=== PATIENT | female | born 1960 | race Asian ===

== ENCOUNTER 2020-02-24 08:45 | Outpatient (REF) | payer OTHER, SELFPAY ==
[2020-02-24 11:11] LABS: MANUAL DIFF FLAG NO
[2020-02-24 11:15] LABS: Basophils Percent Auto 0.3 % (0-2); Eosinophils Absolute Auto 0.3 X10*3/uL (0.0-0.4); Hematocrit 40.9 % (37-47); Hemoglobin 13.3 g/dl (12.0-16.0); Imm Gran Abs Auto 0.05 X10*3/uL (0.00-0.03); Imm Gran Pct Auto 0.5 % (0.0-0.4); Lymphocytes Absolute Auto 2.8 X10*3/uL (1.2-4.9); Lymphocytes Percent Auto 29.1 % (20-40); Mean Corpuscular HGB Conc 32.5 g/dl (31.0-35.0); Mean Corpuscular Hemoglobin 30.6 pg (27.0-33.0); Mean Corpuscular Volume 94.2 fL (80-98); Mean Platelet Volume 10.6 fL (9.4-12.3); Monocytes Absolute Auto 0.6 X10*3/uL (0.1-1.2); Monocytes Percent Auto 6.1 % (2-11); Neutrophils Absolute Auto 5.9 X10*3/uL (2.0-8.3); Platelet Count 305 X10*3/uL (160-400); Red Blood Count 4.34 X10*6/uL (4.20-5.50); Red Cell Distribution Width 12.8 % (11.0-16.0); White Blood Count 9.7 X10*3/uL (4.8-10.8)
[2020-02-24 11:44] LABS: Anion Gap 12 (12-20); Blood Urea Nitrogen 13 mg/dL (9-16); Calcium 9.8 mg/dL (8.4-10.2); Carbon Dioxide 28 mmol/L (22-29); Chloride 104 mmol/L (96-108); Estimated Glomerular Filt Rate > 60; Glucose Random 139 mg/dL (60-115); Potassium 4.4 mmol/l (3.3-5.1); Sodium 140 mmol/L (135-145)
== END 2020-02-24 08:46 | disposition home or self-care (01) ==
LOC: HO.HMGCLDS 08:45
PROVIDERS: PCP Internal Medicine; Visit Provider Internal Medicine
DX: F41.1 Generalized anxiety disorder (principal); G47.61 Periodic limb movement disorder; M17.10 Unilateral primary osteoarthritis, unspecified knee; I10 Essential (primary) hypertension
CPT/HCPCS: 36415; 80048; 85025

== ENCOUNTER → 2020-08-04 11:04 | Outpatient (BNVA) | payer OTHER, SELFPAY | PROVIDERS: PCP Internal Medicine; Visit Provider Internal Medicine | DX: E66.9 Obesity, unspecified (principal); T88.8XXA Other specified complications of surgical and medical care, not elsewhere classified, initial encounter; G47.33 Obstructive sleep apnea (adult) (pediatric); Z99.89 Dependence on other enabling machines and devices | CPT/HCPCS: 99212 ==

== ENCOUNTER 2020-09-02 09:08 | Outpatient (REF) | payer OTHER, SELFPAY ==
[2020-09-02 12:22] LABS: Alanine Aminotransferase 18 U/L (0-31); Albumin Level 4.1 g/dL (3.5-5.0); Alkaline Phosphatase 85 U/L (39-117); Anion Gap 13 (12-20); Aspartate Amino Transferase 14 U/L (5-31); Bilirubin Total 0.3 mg/dL (0.0-1.0); Blood Urea Nitrogen 14 mg/dL (9-16); Calcium 9.7 mg/dL (8.4-10.2); Carbon Dioxide 25 mmol/L (22-29); Chloride 107 mmol/L (96-108); Cholesterol 187 mg/dL; Estimated Glomerular Filt Rate > 60; Glucose Fasting 91 mg/dL (60-99); HDL Cholesterol 42 mg/dL; LDL Cholesterol Calculated 122 mg/dl; Potassium 4.5 mmol/L (3.3-5.1); Sodium 140 mmol/L (135-145); TSH reflex Free T4 1.14 uIU/mL (0.32-4.0); Triglycerides 119 mg/dL
== END 2020-09-02 09:09 | disposition home or self-care (01) ==
LOC: HO.HMGCLDS 09:08
PROVIDERS: PCP Internal Medicine; Visit Provider Internal Medicine
DX: Z00.01 Encounter for general adult medical examination with abnormal findings (principal); F41.1 Generalized anxiety disorder; I10 Essential (primary) hypertension; G47.61 Periodic limb movement disorder; E66.09 Other obesity due to excess calories; Z72.0 Tobacco use
CPT/HCPCS: 36415; 80053; 80061; 84443

== ENCOUNTER → 2020-09-22 10:50 | Outpatient (BNVA) | payer OTHER, SELFPAY | PROVIDERS: PCP Internal Medicine; Visit Provider Internal Medicine | DX: G47.33 Obstructive sleep apnea (adult) (pediatric) (principal); E66.9 Obesity, unspecified; Z99.89 Dependence on other enabling machines and devices | CPT/HCPCS: 99212 ==

== ENCOUNTER 2021-02-15 09:55 | Outpatient (REF) | payer OTHER, SELFPAY ==
[2021-02-15 12:17] LABS: Alanine Aminotransferase 17 U/L (0-31); Albumin Level 3.9 g/dL (3.5-5.0); Alkaline Phosphatase 84 U/L (39-117); Anion Gap 11 (12-20); Aspartate Amino Transferase 15 U/L (5-31); Bilirubin Total 0.2 mg/dL (0.0-1.0); Blood Urea Nitrogen 17 mg/dL (9-16); Calcium 9.5 mg/dL (8.4-10.2); Carbon Dioxide 27 mmol/L (22-29); Chloride 109 mmol/L (96-108); Estimated Glomerular Filt Rate > 60; Glucose Random 117 mg/dL (60-115); Potassium 3.8 mmol/L (3.3-5.1); Sodium 143 mmol/L (135-145); Total Protein 6.7 g/dL (6.5-8.0)
== END 2021-02-15 09:56 | disposition home or self-care (01) ==
LOC: HO.HMGCLDS 09:55
PROVIDERS: PCP Internal Medicine; Visit Provider Internal Medicine
DX: E66.09 Other obesity due to excess calories (principal); F41.1 Generalized anxiety disorder; G47.61 Periodic limb movement disorder; I10 Essential (primary) hypertension
CPT/HCPCS: 36415; 80053

== ENCOUNTER 2021-05-02 12:53 | Outpatient (REF) | payer OTHER, SELFPAY ==
[2021-05-02 14:02] LABS: MANUAL DIFF FLAG NO
[2021-05-02 14:10] LABS: Basophils Percent Auto 0.4 % (0-2); Eosinophils Absolute Auto 0.3 X10*3/uL (0.0-0.4); Eosinophils Percent Auto 2.8 % (0-4); Hematocrit 42.1 % (37.0-47.0); Hemoglobin 13.2 g/dl (12.0-16.0); Imm Gran Abs Auto 0.04 X10*3/uL (0.00-0.03); Imm Gran Pct Auto 0.4 % (0.0-0.4); Lymphocytes Absolute Auto 2.9 X10*3/uL (1.2-4.9); Lymphocytes Percent Auto 29.4 % (20-40); Mean Corpuscular HGB Conc 31.4 g/dl (31.0-35.0); Mean Corpuscular Volume 92.5 fL (80.0-98.0); Mean Platelet Volume 10.8 fL (9.4-12.3); Monocytes Absolute Auto 0.7 X10*3/uL (0.1-1.2); Monocytes Percent Auto 7.5 % (2-11); Neutrophils Absolute Auto 5.8 x10*3/uL (2.0-8.3); Neutrophils Percent Auto 59.5 % (45-73); Platelet Count 289 X10*3/uL (160-400); Red Blood Count 4.55 X10*6/uL (4.20-5.50); Red Cell Distribution Width 13.2 % (11.0-16.0); White Blood Count 9.7 X10*3/uL (4.8-10.8)
[2021-05-02 14:22] LABS: Alanine Aminotransferase 16 U/L (0-31); Albumin Level 4.1 g/dL (3.5-5.0); Alkaline Phosphatase 101 U/L (39-117); Anion Gap 10 (12-20); Aspartate Amino Transferase 16 U/L (5-31); Bilirubin Total 0.3 mg/dL (0.0-1.0); Blood Urea Nitrogen 15 mg/dL (9-16); Calcium 9.8 mg/dL (8.4-10.2); Carbon Dioxide 28 mmol/L (22-29); Chloride 106 mmol/L (96-108); Estimated Glomerular Filt Rate > 60; Glucose Random 108 mg/dL (60-115); Potassium 4.1 mmol/L (3.3-5.1); Sodium 140 mmol/L (135-145)
[2021-05-02 14:46] LABS: TSH reflex Free T4 1.23 uIU/mL (0.32-4.0)
[2021-05-03 05:31] LABS: LDL Cholesterol Direct 136 mg/dL (<100)
== END 2021-05-02 12:54 | disposition home or self-care (01) ==
LOC: HO.HMGCLDS 12:53
PROVIDERS: PCP Internal Medicine; Visit Provider Internal Medicine
DX: F41.1 Generalized anxiety disorder (principal); E66.01 Morbid (severe) obesity due to excess calories; Z68.37 Body mass index [BMI] 37.0-37.9, adult
CPT/HCPCS: 36415; 80053; 83721; 84443; 85025

== ENCOUNTER 2021-06-07 15:42 | Emergency (ER) | payer OTHER, SELFPAY ==
--- NOTE | ~2021-06-07 | XR_ITS ---
EXAMINATION: XR CHEST CLINICAL INFORMATION: Hypertension. COMPARISON: 06/28/2013 chest radiographs. TECHNIQUE: Frontal view of the chest was obtained. FINDINGS: Minimal linear atelectasis versus scarring is seen in the left midlung without significant change. The lungs otherwise clear. The heart is mildly enlarged. The mediastinal structures are unremarkable. XR/XR chest 1V IMPRESSION: No acute cardiopulmonary process.
[2021-06-07 16:00] VITALS: BP 221/88; PULSE 57; RESP 18; TEMP 37; O2SAT 97; BMI 32.9
--- NOTE | 2021-06-07 16:05 | ECG_ITS ---
Test Reason : HYPERTENSION Blood Pressure : / mmHG Vent. Rate : 056 BPM Atrial Rate : 056 BPM P-R Int : 150 ms QRS Dur : 084 ms QT Int : 458 ms P-R-T Axes : 032 -08 055 degrees QTc Int : 441 ms Sinus bradycardia Otherwise normal ECG When compared with ECG of 28-JUN-2013 19:33, Vent. rate has decreased BY 34 BPM Referred By: Generic ED Physician Electronically Signed By:GLO UNDERWOOD MD
[2021-06-07 16:20] LABS: MANUAL DIFF FLAG NO
[2021-06-07 16:22] LABS: Basophils Percent Auto 0.4 % (0-2); Eosinophils Absolute Auto 0.3 X10*3/uL (0.0-0.4); Eosinophils Percent Auto 2.5 % (0-4); Hematocrit 41.9 % (37.0-47.0); Hemoglobin 13.2 g/dl (12.0-16.0); Imm Gran Abs Auto 0.03 X10*3/uL (0.00-0.03); Imm Gran Pct Auto 0.3 % (0.0-0.4); Lymphocytes Absolute Auto 3.2 X10*3/uL (1.2-4.9); Lymphocytes Percent Auto 31.6 % (20-40); Mean Corpuscular HGB Conc 31.5 g/dl (31.0-35.0); Mean Corpuscular Hemoglobin 28.6 pg (27.0-33.0); Mean Corpuscular Volume 90.9 fL (80.0-98.0); Mean Platelet Volume 10.5 fL (9.4-12.3); Monocytes Absolute Auto 0.9 X10*3/uL (0.1-1.2); Monocytes Percent Auto 8.6 % (2-11); Neutrophils Absolute Auto 5.7 x10*3/uL (2.0-8.3); Neutrophils Percent Auto 56.6 % (45-73); Platelet Count 246 X10*3/uL (160-400); Red Blood Count 4.61 X10*6/uL (4.20-5.50); Red Cell Distribution Width 13.4 % (11.0-16.0); White Blood Count 10.1 X10*3/uL (4.8-10.8)
[2021-06-07 16:36] LABS: Anion Gap 12 (12-20); Blood Urea Nitrogen 15 mg/dL (9-16); Calcium 9.7 mg/dL (8.4-10.2); Carbon Dioxide 26 mmol/L (22-29); Chloride 106 mmol/L (96-108); Creatinine Clr Calc Pharmacy 83.2; Estimated Glomerular Filt Rate > 60; Glucose Random 103 mg/dL (60-115); Potassium 4.2 mmol/L (3.3-5.1); Sodium 140 mmol/L (135-145)
[2021-06-07 16:42] LABS: Troponin-I High Sensitivity < 3.5 ng/L (<3.5-17.0)
[2021-06-07 19:48] VITALS: BP 193/93; PULSE 54; O2SAT 94
--- NOTE | 2021-06-07 19:58 | ED.GENADULT ---
HPI - General Adult General Chief complaint: Headache Stated complaint: high BP/hypertension Time Seen by Provider: 06/07/21 19:57 Source: patient Mode of arrival: ambulatory Limitations: no limitations History of Present Illness HPI narrative: Patient with history of hypertension for long time on valsartan and atenolol recently for last 1 month blood pressure has been very high PCP increased the dose of valsartan to 320 mg for 160 mg last week blood pressure is still 195/86 on arrival at home it was 221/88 patient complaining of mild headache and heaviness does have a stress at home but feel relaxed now no chest pain or shortness of breath no urinary complaints Related Data Home Medications Medication Instructions Recorded Confirmed clonazepam 0.5 mg tablet 0.5 mg PO BEDTIME 06/07/21 06/07/21 Previous Rx's Medication Instructions Recorded sertraline 100 mg tablet 100 mg PO DAILY 90 Days #90 tab 11/16/20 naproxen 500 mg tablet 500 mg PO ONCE 90 Days #90 tab 04/21/21 Bp Monitor #1 ea 05/02/21 atenolol 50 mg tablet 50 mg PO DAILY 90 Days #90 tab 05/24/21 valsartan 320 mg tablet 320 mg PO DAILY 90 Days #90 tab 05/31/21 amlodipine 5 mg tablet (Norvasc) 5 mg PO DAILY #30 tab 06/07/21 hydrochlorothiazide 12.5 mg tablet 12.5 mg PO QAM #30 tab 06/07/21 Allergies Allergy/AdvReac Type Severity Reaction Status Date / Time No Known Allergies Allergy Verified 05/24/21 09:37 Review of Systems Review of Systems: Yes all other systems are reviewed and are negative PMFSH Past Medical History Medical History Anxiety, generalized Hypertension, essential Malfunction of continuous positive airway pressure (CPAP) or bilevel positive airway pressure (BPAP) machine Obesity (BMI 35.0-39.9 without comorbidity) POLINA on CPAP Osteoarthritis, knee Periodic limb movement disorder Surgical History History of section History of hysterectomy with bilateral oophorectomy Family History Family History Father No problems noted. Mother No problems noted. Brother No problems noted. Brother No problems noted. Brother No problems noted. Son No problems noted. Son No problems noted. Other Mental health disorder Social History Social History Housing: House Alcohol intake: never Patient Tobacco Use Status: Current everyday Tobacco user Tobacco use type: Cigarette Cigarettes Per Day: 5 Years Smoked: 30 Smoked in Last 30 Days: Yes Use of substances other than those prescribed or required for medical reasons: No Advance Directives: No Advance Directives Information Provided: No Patient : No Current occupational status: unemployed Physical Exam ED Vital Signs: Vital Signs - 24 hr 06/07/21 16:00 06/07/21 19:48 06/07/21 20:43 Temperature 98.6 F Pulse Rate 57 54 52 Respiratory Rate 18 18 Blood Pressure 221/88 H 193/93 H 184/82 H Pulse Oximetry 97 94 94 06/07/21 20:48 Temperature Pulse Rate 52 Respiratory Rate 18 Blood Pressure 179/86 H Pulse Oximetry 96 BMI result Body Mass Index 32.9 Appearance: Alert. Oriented X3. No acute distress. Eyes: No pallor or icterus ENT: Pharynx normal. Oral Mucosa moist Neck: Normal inspection. Neck supple. CVS: Normal heart rate and rhythm. Pulses normal. Respiratory: No respiratory distress. Equal air entry bilateral, no wheezing/rales/rhonchi Abdomen: Soft and nontender. Bowel sounds are present, no mass palpable, no CVA tenderness Skin: Skin warm and dry. Normal skin color. Normal skin turgor. Extremities: No lower extremity edema. No calf tenderness Neuro: Oriented X 3. No motor deficit. No sensory deficit.No cerebellar signs , cranial nerves II-XII intact Medical Decision Making MDM Narrative Medical decision making narrative: Patient essential hypertension uncontrolled for last few weeks will add Norvasc 5 mg along with hydrochlorothiazide advised to follow with production cell leader/PCP Lab Data Lab results reviewed: Yes I reviewed the patient's lab results. Result diagrams: 06/07/21 16:12 06/07/21 16:12 Labs: Lab Results 06/07/21 06/07/21 06/07/21 Range/Units 16:12 16:12 16:12 WBC 10.1 (4.8-10.8) X10*3/uL RBC 4.61 (4.20-5.50) X10*6/uL Hgb 13.2 (12.0-16.0) g/dl Hct 41.9 (37.0-47.0) % MCV 90.9 (80.0-98.0) fL MCH 28.6 (27.0-33.0) pg MCHC 31.5 (31.0-35.0) g/dl RDW 13.4 (11.0-16.0) % Plt Count 246 (160-400) X10*3/uL MPV 10.5 (9.4-12.3) fL Immature Gran % (Auto) 0.3 (0.0-0.4) % Neut % (Auto) 56.6 (45-73) % Lymph % (Auto) 31.6 (20-40) % [place] % (Auto) 8.6 (2-11) % Eos % (Auto) 2.5 (0-4) % Baso % (Auto) 0.4 (0-2) % Lymph # (Auto) 3.2 (1.2-4.9) X10*3/uL [place] # (Auto) 0.9 (0.1-1.2) X10*3/uL Eos # (Auto) 0.3 (0.0-0.4) X10*3/uL Baso # (Auto) 0.0 (0.0-0.2) X10*3/uL Abs Immat Gran (auto) 0.03 (0.00-0.03) X10*3/uL Absolute Neuts (auto) 5.7 (2.0-8.3) x10*3/uL Absolute Nucleated RBC 0.000 (0.0-0.012) X10*3/uL Nucleated RBC % (auto) 0.0 (0.0-0.2) /100WBC Sodium 140 (135-145) mmol/L Potassium 4.2 (3.3-5.1) mmol/L Chloride 106 (96-108) mmol/L Carbon Dioxide 26 (22-29) mmol/L Anion Gap 12 (12-20) BUN 15 (9-16) mg/dL Creatinine 0.72 (0.5-1.4) mg/dL Estim Creat Clear Calc 83.2 Estimated GFR > 60 Random Glucose 103 (60-115) mg/dL Calcium 9.7 (8.4-10.2) mg/dL Troponin I High Sens < 3.5 (<3.5-17.0) ng/L Discharge Plan Discharge Clinical Impression: Uncontrolled hypertension Patient Disposition: Home, Self-Care Instructions: Chronic Hypertension (ED) Additional Instructions: Stop taking Advil/ibuprofen/naproxen Start taking Norvasc 5 mg daily Add hydrochlorothiazide 12.5 mg every day in the morning Check blood pressure before taking medicine and before you go to bed Which should be less than 140/90 Follow with production cell leader/PCP Continue your other blood pressure medications Prescriptions: New amlodipine [Norvasc] 5 mg tablet 5 mg PO DAILY Qty: 30 3RF hydrochlorothiazide 12.5 mg tablet 12.5 mg PO QAM Qty: 30 3RF No Action naproxen 500 mg tablet 500 mg PO ONCE 90 Days Qty: 90 0RF valsartan 320 mg tablet 320 mg PO DAILY 90 Days Qty: 90 0RF clonazepam 0.5 mg tablet 0.5 mg PO BEDTIME 0RF sertraline 100 mg tablet 100 mg PO DAILY 90 Days Qty: 90 0RF (DME) Bp Monitor See Rx Instructions .Route .MEDSUPPLY Qty: 1 0RF Rx Instructions: As directed atenolol 50 mg tablet 50 mg PO DAILY 90 Days Qty: 90 0RF Referrals: Charlie Hussein MD [Physician] - 1 week Interventions: ED Discharge Assessment Last Done: 06/07/21 20:49 Discharge Date/Time: 06/07/21 20:50
--- NOTE | 2021-06-07 20:16 | PC.NURSE ---
at bedside, reports intermittent h/a x 1 month dizziness, sense feeling drunk, increased fatigue. reports being very involved with grandchild, then was depressed and not as involed. reports brother 3 months ago, adding to the stress.
[2021-06-07] MEDS: amLODIPine Besylate 5 MG TABLET PO (20:41)
[2021-06-07 20:43] VITALS: BP 184/82; PULSE 52; RESP 18; O2SAT 94
[2021-06-07 20:48] VITALS: BP 179/86; PULSE 52; RESP 18; O2SAT 96
== END 2021-06-07 20:50 | disposition home or self-care (01) ==
PROVIDERS: Emergency Provider Internal Medicine; PCP Internal Medicine
DX: I10 Essential (primary) hypertension (principal); Z79.899 Other long term (current) drug therapy; F17.210 Nicotine dependence, cigarettes, uncomplicated; Z71.6 Tobacco abuse counseling; Z63.8 Other specified problems related to primary support group
CPT/HCPCS: 36415; 71045; 80048; 84484; 85025; 93005; 99283; 99285

== ENCOUNTER 2021-09-08 08:55 | Outpatient (REF) | payer OTHER, SELFPAY ==
--- NOTE | ~2021-09-08 | MM_ITS ---
EXAMINATION: MM SCREENING DIGITAL BREAST TOMOSYNTHESIS, BILATERAL CLINICAL INFORMATION: Screening. Asymptomatic. The lifetime risk of breast cancer based on the Tyrer-Cuzick Model is 5%. COMPARISON: Mammography: 08/27/2018, 05/04/2016, 04/13/2015 TECHNIQUE: Digital breast tomosynthesis is performed in both the craniocaudal and mediolateral oblique views along with computer-aided detection (CAD). Synthesized 2D images are generated from the tomosynthesis. FINDINGS: There are scattered areas of fibroglandular density (ACR BI-RADS breast composition Category b). There are no significant masses, abnormal calcifications, or other abnormalities. Breast tissue composition borders on predominantly fatty. Background stromal markings are stable. No significant changes. MM/MM tomosynthesis screening BI IMPRESSION: No mammographic evidence of malignancy. ASSESSMENT: BI-RADS 1: Negative RECOMMENDATION: Routine annual mammography screening. This patient's information was entered into a reminder system with a target due date for their next mammogram.
== END 2021-09-08 08:56 | disposition home or self-care (01) ==
LOC: HO.MAMMO 08:55
PROVIDERS: PCP Internal Medicine; Visit Provider Internal Medicine
DX: Z12.31 Encounter for screening mammogram for malignant neoplasm of breast (principal)
CPT/HCPCS: 77063; 77067

== ENCOUNTER 2022-02-21 10:40 | Outpatient (REF) | payer OTHER, SELFPAY ==
[2022-02-21 13:57] LABS: MANUAL DIFF FLAG NO
[2022-02-21 14:01] LABS: Basophils Percent Auto 0.4 % (0-2); Eosinophils Absolute Auto 0.2 X10*3/uL (0.0-0.4); Hematocrit 41.9 % (37.0-47.0); Hemoglobin 13.3 g/dl (12.0-16.0); Imm Gran Abs Auto 0.04 X10*3/uL (0.00-0.03); Imm Gran Pct Auto 0.4 % (0.0-0.4); Lymphocytes Absolute Auto 3.2 X10*3/uL (1.2-4.9); Lymphocytes Percent Auto 31.8 % (20-40); Mean Corpuscular HGB Conc 31.7 g/dl (31.0-35.0); Mean Corpuscular Volume 91.3 fL (80.0-98.0); Mean Platelet Volume 10.9 fL (9.4-12.3); Monocytes Absolute Auto 0.6 X10*3/uL (0.1-1.2); Neutrophils Absolute Auto 5.9 x10*3/uL (2.0-8.3); Neutrophils Percent Auto 59.4 % (45-73); Platelet Count 294 X10*3/uL (160-400); Red Blood Count 4.59 X10*6/uL (4.20-5.50); Red Cell Distribution Width 13.4 % (11.0-16.0)
[2022-02-21 14:13] LABS: Alanine Aminotransferase 19 U/L (0-31); Albumin Level 4.1 g/dL (3.5-5.0); Alkaline Phosphatase 124 U/L (39-117); Anion Gap 14 (12-20); Aspartate Amino Transferase 16 U/L (5-31); Bilirubin Total 0.4 mg/dL (0.0-1.0); Blood Urea Nitrogen 13 mg/dL (9-16); Calcium 9.9 mg/dL (8.4-10.2); Carbon Dioxide 28 mmol/L (22-29); Chloride 105 mmol/L (96-108); Estimated Glomerular Filt Rate > 60; Glucose Random 157 mg/dL (60-115); Sodium 143 mmol/L (135-145); Total Protein 7.3 g/dL (6.5-8.0)
== END 2022-02-21 10:41 | disposition home or self-care (01) ==
LOC: HO.HMGCLDS 10:40
PROVIDERS: PCP Internal Medicine; Visit Provider Internal Medicine
DX: E66.09 Other obesity due to excess calories (principal); F33.9 Major depressive disorder, recurrent, unspecified; F41.1 Generalized anxiety disorder; I10 Essential (primary) hypertension; Z72.0 Tobacco use
CPT/HCPCS: 36415; 80053; 85025

== ENCOUNTER 2022-05-29 10:44 | Outpatient (REF) | payer OTHER, SELFPAY ==
[2022-05-29 14:10] LABS: MANUAL DIFF FLAG NO
[2022-05-29 14:22] LABS: Basophils Percent Auto 0.4 % (0-2); Eosinophils Absolute Auto 0.3 X10*3/uL (0.0-0.4); Eosinophils Percent Auto 2.6 % (0-4); Hematocrit 41.4 % (37.0-47.0); Hemoglobin 13.6 g/dl (12.0-16.0); Imm Gran Abs Auto 0.04 X10*3/uL (0.00-0.03); Imm Gran Pct Auto 0.4 % (0.0-0.4); Lymphocytes Absolute Auto 3.4 X10*3/uL (1.2-4.9); Lymphocytes Percent Auto 34.1 % (20-40); Mean Corpuscular HGB Conc 32.9 g/dl (31.0-35.0); Mean Corpuscular Hemoglobin 30.4 pg (27.0-33.0); Mean Corpuscular Volume 92.4 fL (80.0-98.0); Mean Platelet Volume 10.6 fL (9.4-12.3); Monocytes Absolute Auto 0.9 X10*3/uL (0.1-1.2); Monocytes Percent Auto 8.8 % (2-11); Neutrophils Absolute Auto 5.4 x10*3/uL (2.0-8.3); Neutrophils Percent Auto 53.7 % (45-73); Platelet Count 268 X10*3/uL (160-400); Red Blood Count 4.48 X10*6/uL (4.20-5.50); Red Cell Distribution Width 13.6 % (11.0-16.0)
[2022-05-29 15:34] LABS: Alanine Aminotransferase 23 U/L (0-31); Albumin Level 4.1 g/dL (3.5-5.0); Alkaline Phosphatase 105 U/L (39-117); Anion Gap 11 (12-20); Aspartate Amino Transferase 18 U/L (5-31); Bilirubin Total 0.3 mg/dL (0.0-1.0); Blood Urea Nitrogen 13 mg/dL (9-16); Calcium 9.4 mg/dL (8.4-10.2); Carbon Dioxide 26 mmol/L (22-29); Chloride 109 mmol/L (96-108); Estimated Glomerular Filt Rate > 60; Glucose Random 93 mg/dL (60-115); Potassium 4.3 mmol/L (3.3-5.1); Sodium 142 mmol/L (135-145); Total Protein 6.9 g/dL (6.5-8.0)
== END 2022-05-29 10:45 | disposition home or self-care (01) ==
LOC: HO.HMGCLDS 10:44
PROVIDERS: PCP Internal Medicine; Visit Provider Internal Medicine
DX: E66.09 Other obesity due to excess calories (principal); F41.1 Generalized anxiety disorder; G47.30 Sleep apnea, unspecified; G47.61 Periodic limb movement disorder; M17.10 Unilateral primary osteoarthritis, unspecified knee; I10 Essential (primary) hypertension
CPT/HCPCS: 36415; 80053; 85025

== ENCOUNTER 2022-11-28 08:44 | Outpatient (AMB) | payer OTHER, SELFPAY ==
--- NOTE | 2022-11-28 08:49 | A.OFFPC_ITS ---
Vital Signs 11/28/22 08:51 Height 5 ft 2 in Weight 211 lb 8 oz BMI 38.7 BP 116/60 Blood Pressure Location Lt brachial Position Sitting Pulse 73 Pulse Source Pulse Oximeter Pulse Oximetry (%) 97 Oxygen Delivery Method Room Air Intake Visit Reasons: 3M follow up Allergies No Known Allergies Allergy (Verified 11/28/22 08:53) Medication List - Last Reconciled 11/28/22 by Norbert Reddy MD amlodipine 10 mg PO DAILY atenolol 50 mg PO DAILY 90 days [Bp Monitor As directed] clonazepam 0.5 mg PO BEDTIME 90 days losartan 50 mg PO BID 90 days sertraline 100 mg PO DAILY 90 days Tobacco use date assessed: 11/28/22 Dental Screening Dental Screen Date: 11/28/22 Did you have a dental visit in the last 12 months?: No Did you have a dental problem in the last 6 months where you did not have access to dental care?: No Was dental information given to patient?: No HPI 3M follow up HPI Details Patient is a 62-year-old female came in today for her regular follow-up visit. Patient has forgot to do her labs again, reminded patient to do them as soon as possible She has lipomas in her back which are stable, patient says that they are not changing in size or causing any discomfort Hypertension: Patient is currently taking 3 medications amlodipine 10 mg, atenolol 50 mg, and losartan 50 mg b.i.d. her blood pressure is stable. Tolerating medications Anxiety stable with sertraline 100 mg, patient also take clonazepam 0.5 mg at night for periodic leg movement disorder BMI is 38.7 patient is struggling with her weight Follow-up 3 months REPLACED BY [facility] Medical History Malfunction of continuous positive airway pressure (CPAP) or bilevel positive airway pressure (BPAP) machine POLINA on CPAP Obesity (BMI 35.0-39.9 without comorbidity) Anxiety, generalized Osteoarthritis, knee Hypertension, essential Periodic limb movement disorder Surgical History History of hysterectomy with bilateral oophorectomy History of section Family History Father No problems noted. Mother No problems noted. Brother No problems noted. Brother No problems noted. Brother No problems noted. Son No problems noted. Son No problems noted. Other Mental health disorder Social History Housing: House Alcohol intake: never Patient Tobacco Use Status: Current everyday Tobacco user Tobacco use type: Cigarette Cigarettes Per Day: 5 Years Smoked: 30 e-Cigarette/Vaping Use: Never Used Current occupational status: unemployed Cognitive needs: No Hearing needs: No Vision needs: No Questionnaire PHQ-9 Over the last 2 weeks, how often have you been bothered by any of the following problems? 1. Little interest or pleasure in doing things: several days 2. Feeling down, depressed, or hopeless: several days 3. Trouble falling or staying asleep, or sleeping too much: not at all 4. Feeling tired or having little energy: nearly every day 5. Poor appetite or overeating: nearly every day 6. Feeling bad about yourself - or that you are a failure or have let yourself or your family down: not at all 7. Trouble concentrating on things, such as reading the newspaper or watching television: nearly every day 8. Moving or speaking so slowly that other people could have noticed. Or the opposite - being so fidgety or restless that you have been moving around a lot more than usual: nearly every day 9. Thoughts that you would be better off or of hurting yourself in some way: not at all Total score: 14 Depression Screening Interpretation: Positive [id number] - PHQ-9 Billing: Yes Source: Developed by Drs. Reji Gimenez, Kina Patel, Rodolfo Mosley and colleagues, with an educational lamar from [employer]. Thrive Questionnaire Date Thrive assessed: 11/28/22 I am a: Patient What is your living situation today?: I have a steady place to live Within the past 12 months, did the food you bought not last and you didn't have the money to get more?: Sometimes True Within the past 12 months, did you worry whether your food would run out before you got money to buy more?: Sometimes True Do you have trouble paying for medicines?: Yes Do you have trouble getting transportation to medical appointments?: No Do you have trouble paying your heating and electricity bill?: Yes Do you have trouble with day-to-day activities such as bathing, preparing meals, shopping, managing finances, etc.?: Yes Are you currently unemployed and looking for a job?: Yes Are you interested in more education?: No Please select the resources that you would like help with: Food, Paying for medicine, Utilities and Daily support AUDIT C Alcohol Use Questionnaire (AUDIT-C) 1. How often do you have a drink containing alcohol?: Never 3. How often do you have six or more drinks on one occasion?: Never Total Score: 0 Score Reviewed/Action Taken: Yes LYNNE-7 AMB Questionnaire LYNNE-7 Date LYNNE - 7 assessed: 11/28/22 Source: Developed by Drs. Reji Gimenez, Kina Patel, Rodolfo Mosley and colleagues, with an educational lamar from [employer]. LYNNE-7 Assessment Billing LYNNE-7 Assessment Tool: pt declined-do not bill Review of Systems Const Denies chills and Denies fever(s) ENT Denies epistaxis and Denies nasal discharge Card Denies chest pain Resp Denies chest congestion, Denies cough and Denies hemoptysis GI Denies diarrhea and Denies nausea Skin/Breast Denies rash Neuro Reports no additional complaints Psych Reports no additional complaints Endo Reports no additional complaints Physical exam (Primary Care) Vital Signs: Last Vital Signs Pulse 73 11/28/22 08:51 BP 116/60 11/28/22 08:51 Pulse Ox 97 11/28/22 08:51 Oxygen Delivery Method Room Air 11/28/22 08:51 BMI result Body Mass Index 38.7 Tobacco/Smoking Status: Tobacco use Status Tobacco use date assessed 11/28/22 11/28/22 08:53 Patient Tobacco Use Status Current everyday Tobacco 11/28/22 08:50 Tobacco use type Cigarette 11/28/22 08:50 e-Cigarette/Vaping Use Never Used 11/28/22 08:50 PHQ-9: PHQ-9 Score PHQ-9: Total score 14 11/28/22 09:57 Depression Screening Interpretation: Positive Thrive Assessment: Date of Thrive Assessment Date Thrive assessed 11/28/22 11/28/22 09:10 Const General: cooperative, comfortable and no acute distress Orientation/consciousness: patient oriented x3 HENMT Head: Yes normocephalic Eyes General: appearance normal, both eyes and all related structures Neck Neck: Yes supple Resp Effort & Inspection: normal respiratory effort, no cough and no stridor Cardio Rhythm: regular rhythm Heart sounds: S1 normal heart sound present and S2 normal heart sound present Skin Other: Round forearm lumps in the back upper back and lower back without any skin changes or tenderness, patient says that they have pain same size for a while General skin exam: turgor normal Neuro General: patient oriented x3, tone normal and moves all extremities Extrem Right lower extremity: no edema Left lower extremity: no edema Assessment and Plan Assessment & Plan (1) Hypertension, essential: Code(s): I10 - Essential (primary) hypertension (2) Periodic limb movement disorder: Code(s): G47.61 - Periodic limb movement disorder (3) Osteoarthritis, knee: Code(s): M17.10 - Unilateral primary osteoarthritis, unspecified knee Qualifiers: Laterality: bilateral Osteoarthritis type: primary Qualified Code(s): M17.0 - Bilateral primary osteoarthritis of knee (4) Sleep apnea: Code(s): G47.30 - Sleep apnea, unspecified Qualifiers: Sleep apnea type: obstructive Qualified Code(s): G47.33 - Obstructive sleep apnea (adult) (pediatric) (5) Obesity due to excess calories: Code(s): E66.09 - Other obesity due to excess calories Qualifiers: Body mass index: BMI 37.0-37.9 Obesity classification: adult class 2 (BMI 35 - 39.9) Serious obesity comorbidity presence: with serious comorbidity Qualified Code(s): E66.01 - Morbid (severe) obesity due to excess calories; Z68.37 - Body mass index [BMI] 37.0-37.9, adult (6) Multiple lipomas: Code(s): D17.9 - Benign lipomatous neoplasm, unspecified (7) Major depression, recurrent: Code(s): F33.9 - Major depressive disorder, recurrent, unspecified Qualifiers: Active/Remission status: in partial remission Qualified Code(s): F33.41 - Major depressive disorder, recurrent, in partial remission Plan Patient is a 62-year-old female came in today for her regular follow-up visit. Patient has forgot to do her labs again, reminded patient to do them as soon as possible She has lipomas in her back which are stable, patient says that they are not changing in size or causing any discomfort Hypertension: Patient is currently taking 3 medications amlodipine 10 mg, atenolol 50 mg, and losartan 50 mg b.i.d. her blood pressure is stable. Tolerating medications Anxiety and depression stable with sertraline 100 mg, patient also take clonazepam 0.5 mg at night for periodic leg movement disorder Pain in her knee is stable at this time patient have osteoarthritis for knees She also have a sleep apnea and is using her machine BMI is 38.7 patient is struggling with her weight Follow-up 3 months Medications: Refilled clonazepam 0.5 mg PO BEDTIME 90 tabs 0RF 90 days Coding Level of Care Code Est Pt Level 4 (80838) Diagnoses Hypertension, essential I10 Periodic limb movement disorder G47.61 Primary osteoarthritis of both knees M17.0 Laterality: bilateral Osteoarthritis type: primary Obstructive sleep apnea syndrome G47.33 Sleep apnea type: obstructive Class 2 severe obesity due to excess calories with serious comorbidity and body mass index (BMI) of 37.0 to 37.9 in adult E66.01; Z68.37 Body mass index: BMI 37.0-37.9 Obesity classification: adult class 2 (BMI 35 - 39.9) Serious obesity comorbidity presence: with serious comorbidity Multiple lipomas D17.9 Recurrent major depressive disorder, in partial remission F33.41 Active/Remission status: in partial remission
[2022-11-28 08:51] VITALS: BP 116/60; PULSE 73; O2SAT 97; BMI 38.7
== END 2022-11-28 11:40 | disposition home or self-care (01) ==
PROVIDERS: PCP Internal Medicine; Visit Provider Internal Medicine
DX: I10 Essential (primary) hypertension (principal); E66.01 Morbid (severe) obesity due to excess calories; F33.41 Major depressive disorder, recurrent, in partial remission; Z68.37 Body mass index [BMI] 37.0-37.9, adult; G47.61 Periodic limb movement disorder; M17.0 Bilateral primary osteoarthritis of knee; G47.33 Obstructive sleep apnea (adult) (pediatric); D17.9 Benign lipomatous neoplasm, unspecified
CPT/HCPCS: 99214

== ENCOUNTER 2022-11-28 09:07 | Outpatient (REF) | payer OTHER, SELFPAY ==
[2022-11-28 11:14] LABS: MANUAL DIFF FLAG NO
[2022-11-28 11:36] LABS: Basophils Percent Auto 0.2 % (0-2); Eosinophils Absolute Auto 0.2 X10*3/uL (0.0-0.4); Eosinophils Percent Auto 2.8 % (0-4); Hematocrit 42.2 % (37.0-47.0); Hemoglobin 13.7 g/dl (12.0-16.0); Imm Gran Abs Auto 0.04 X10*3/uL (0.00-0.03); Imm Gran Pct Auto 0.5 % (0.0-0.4); Lymphocytes Absolute Auto 2.6 X10*3/uL (1.2-4.9); Mean Corpuscular HGB Conc 32.5 g/dl (31.0-35.0); Mean Corpuscular Hemoglobin 30.2 pg (27.0-33.0); Mean Corpuscular Volume 93.2 fL (80.0-98.0); Mean Platelet Volume 10.2 fL (9.4-12.3); Monocytes Absolute Auto 0.7 X10*3/uL (0.1-1.2); Monocytes Percent Auto 8.1 % (2-11); Neutrophils Absolute Auto 4.7 x10*3/uL (2.0-8.3); Neutrophils Percent Auto 56.4 % (45-73); Platelet Count 280 X10*3/uL (160-400); Red Blood Count 4.53 X10*6/uL (4.20-5.50); Red Cell Distribution Width 13.5 % (11.0-16.0); White Blood Count 8.3 X10*3/uL (4.8-10.8)
[2022-11-28 12:29] LABS: Alanine Aminotransferase 25 U/L (0-31); Albumin Level 4.2 g/dL (3.5-5.0); Alkaline Phosphatase 108 U/L (39-117); Anion Gap 12 (12-20); Aspartate Amino Transferase 21 U/L (5-31); Bilirubin Total 0.3 mg/dL (0.0-1.0); Blood Urea Nitrogen 13 mg/dL (9-16); Calcium 10.1 mg/dL (8.4-10.2); Carbon Dioxide 28 mmol/L (22-29); Chloride 105 mmol/L (96-108); Estimated Glomerular Filt Rate > 60; Glucose Random 94 mg/dL (60-115); Sodium 141 mmol/L (135-145); Total Protein 7.8 g/dL (6.5-8.0)
[2022-11-29 16:19] LABS: LDL Cholesterol Direct 134 mg/dL (<100)
== END 2022-11-28 09:08 | disposition home or self-care (01) ==
LOC: HO.HMGCLDS 09:07
PROVIDERS: PCP Internal Medicine; Visit Provider Internal Medicine
DX: I10 Essential (primary) hypertension (principal); G47.61 Periodic limb movement disorder; M17.10 Unilateral primary osteoarthritis, unspecified knee; G47.30 Sleep apnea, unspecified; E66.09 Other obesity due to excess calories
CPT/HCPCS: 36415; 80053; 83721; 85025

== ENCOUNTER 2023-02-01 15:42 | Outpatient (AMB) | payer OTHER, SELFPAY ==
[2023-02-01 15:53] VITALS: BP 120/68; PULSE 73; O2SAT 95; BMI 38.7
--- NOTE | 2023-02-01 15:53 | A.OFFPC_ITS ---
Vital Signs 02/01/23 15:53 Height 5 ft 2 in Weight 211 lb 6 oz BMI 38.7 BP 120/68 Blood Pressure Location Lt brachial Position Sitting Pulse 73 Pulse Source Pulse Oximeter Pulse Oximetry (%) 95 Oxygen Delivery Method Room Air Intake Visit Reasons: RMV Disabled Parking Placard/Plate form Allergies No Known Allergies Allergy (Verified 02/01/23 15:54) Medication List - Last Reconciled 02/01/23 by Norbert Reddy MD amlodipine 10 mg PO DAILY atenolol 50 mg PO DAILY 90 days [Bp Monitor As directed] clonazepam 0.5 mg PO BEDTIME 90 days losartan 50 mg PO BID 90 days sertraline 100 mg PO DAILY 90 days Tobacco use date assessed: 02/01/23 Dental Screening Dental Screen Date: 02/01/23 Did you have a dental visit in the last 12 months?: Yes Did you have a dental problem in the last 6 months where you did not have access to dental care?: No Was dental information given to patient?: Patient has dentist HPI RMV Disabled Parking Placard/Plate form HPI Details Patient is a 62-year-old female came in today for her regular follow-up visit. Patient is asking for handicap placard She has severe osteoarthritis in her knees and in [place] it is difficult for patient to walk Paperwork filled Lipomas are stable Hypertension: Patient is currently taking 3 medications amlodipine 10 mg, atenolol 50 mg, and losartan 50 mg b.i.d. her blood pressure is stable. Tolerating medications Anxiety and depression stable with sertraline 100 mg, patient also take clonazepam 0.5 mg at night for periodic leg movement disorder She also have a sleep apnea and is using her machine, she is in need of new tubing, she is currently seeing Dr. Caban for the management BMI is 38.7 patient is struggling with her weight Follow-up 3 months, labs are needed before next visit [facility] Medical History Malfunction of continuous positive airway pressure (CPAP) or bilevel positive airway pressure (BPAP) machine POLINA on CPAP Obesity (BMI 35.0-39.9 without comorbidity) Anxiety, generalized Osteoarthritis, knee Hypertension, essential Periodic limb movement disorder Surgical History History of hysterectomy with bilateral oophorectomy History of section Family History Father No problems noted. Mother No problems noted. Brother No problems noted. Brother No problems noted. Brother No problems noted. Son No problems noted. Son No problems noted. Other Mental health disorder Social History Housing: House Alcohol intake: never Patient Tobacco Use Status: Current everyday Tobacco user Tobacco use type: Cigarette Cigarettes Per Day: 5 Years Smoked: 30 Packs per year/per ci.50 e-Cigarette/Vaping Use: Never Used Current occupational status: unemployed Cognitive needs: No Hearing needs: No Vision needs: No Questionnaire Thrive Questionnaire Date Thrive assessed: 11/28/22 AUDIT C Alcohol Use Questionnaire (AUDIT-C) 1. How often do you have a drink containing alcohol?: Never 3. How often do you have six or more drinks on one occasion?: Never Total Score: 0 Score Reviewed/Action Taken: Yes LYNNE-7 AMB Questionnaire LYNNE-7 Date LYNNE - 7 assessed: 11/28/22 Source: Developed by Drs. Reji Gimenez, Kina Patel, Rodolfo Mosley and colleagues, with an educational lamar from [employer]. Review of Systems Const Denies chills and Denies fever(s) ENT Denies epistaxis and Denies nasal discharge Card Denies chest pain Resp Denies chest congestion, Denies cough and Denies hemoptysis GI Denies diarrhea and Denies nausea Skin/Breast Denies rash Neuro Reports no additional complaints Psych Reports no additional complaints Endo Reports no additional complaints Physical exam (Primary Care) Vital Signs: Last Vital Signs Pulse 73 02/01/23 15:53 BP 120/68 02/01/23 15:53 Pulse Ox 95 02/01/23 15:53 Oxygen Delivery Method Room Air 02/01/23 15:53 BMI result Body Mass Index 38.7 Tobacco/Smoking Status: Tobacco use Status Tobacco use date assessed 02/01/23 02/01/23 15:54 Patient Tobacco Use Status Current everyday Tobacco 02/01/23 15:54 Tobacco use type Cigarette 02/01/23 15:54 e-Cigarette/Vaping Use Never Used 02/01/23 15:54 Thrive Assessment: Date of Thrive Assessment Date Thrive assessed 11/28/22 02/01/23 15:54 Const General: cooperative, comfortable and no acute distress Orientation/consciousness: patient oriented x3 HENMT Head: Yes normocephalic Eyes General: appearance normal, both eyes and all related structures Neck Neck: Yes supple Resp Effort & Inspection: normal respiratory effort, no cough and no stridor Cardio Rhythm: regular rhythm Heart sounds: S1 normal heart sound present and S2 normal heart sound present Skin General skin exam: turgor normal Neuro General: patient oriented x3, tone normal and moves all extremities Extrem Right lower extremity: no edema Left lower extremity: no edema Assessment and Plan Assessment & Plan (1) Hypertension, essential: Code(s): I10 - Essential (primary) hypertension (2) Periodic limb movement disorder: Code(s): G47.61 - Periodic limb movement disorder (3) Osteoarthritis, knee: Code(s): M17.10 - Unilateral primary osteoarthritis, unspecified knee Qualifiers: Osteoarthritis type: primary Laterality: bilateral Qualified Code(s): M17.0 - Bilateral primary osteoarthritis of knee (4) Sleep apnea: Code(s): G47.30 - Sleep apnea, unspecified Qualifiers: Sleep apnea type: obstructive Qualified Code(s): G47.33 - Obstructive sleep apnea (adult) (pediatric) (5) Obesity due to excess calories: Code(s): E66.09 - Other obesity due to excess calories Qualifiers: Obesity classification: adult class 2 (BMI 35 - 39.9) Serious obesity comorbidity presence: with serious comorbidity Body mass index: BMI 37.0-37.9 Qualified Code(s): E66.01 - Morbid (severe) obesity due to excess calories; Z68.37 - Body mass index [BMI] 37.0-37.9, adult (6) Multiple lipomas: Code(s): D17.9 - Benign lipomatous neoplasm, unspecified (7) Major depression, recurrent: Code(s): F33.9 - Major depressive disorder, recurrent, unspecified Qualifiers: Active/Remission status: in partial remission Qualified Code(s): F33.41 - Major depressive disorder, recurrent, in partial remission (8) Obesity (BMI 35.0-39.9 without comorbidity): Comment: SHE HAS BEEN MODERATELY OBESE ALL ALONG, ADVISED THAT SHE SHOULD TRY TO LOSE ABOUT 10-15 LB OF WEIGHT. DISCUSSED ABOUT DIET AND REDUCING CALORIES INTAKE . Code(s): E66.9 - Obesity, unspecified (9) Anxiety, generalized: Code(s): F41.1 - Generalized anxiety disorder Plan Patient is a 62-year-old female came in today for her regular follow-up visit. Patient is asking for handicap placard She has severe osteoarthritis in her knees and in [place] it is difficult for patient to walk Paperwork filled Lipomas are stable Hypertension: Patient is currently taking 3 medications amlodipine 10 mg, atenolol 50 mg, and losartan 50 mg b.i.d. her blood pressure is stable. Tolerating medications Anxiety and depression stable with sertraline 100 mg, patient also take clonazepam 0.5 mg at night for periodic leg movement disorder She also have a sleep apnea and is using her machine, she is in need of new tubing, she is currently seeing Dr. Caban for the management BMI is 38.7 patient is struggling with her weight Follow-up 3 months Orders: Orders Hemoglobin A1c Today D17.9 - Benign lipomatous neoplasm, unspecified, E66.09 - Other obesity due to excess calories, E66.9 - Obesity, unspecified, F33.9 - Major depressive disorder, recurrent, unspecified, F41.1 - Generalized anxiety disorder, G47.30 - Sleep apnea, unspecified, G47.61 - Periodic limb movement disorder, I10 - Essential (primary) hypertension, M17.10 - Unilateral primary osteoarthritis, unspecified knee Complete Blood Count Auto Diff Today D17.9 - Benign lipomatous neoplasm, unspecified, E66.09 - Other obesity due to excess calories, E66.9 - Obesity, unspecified, F33.9 - Major depressive disorder, recurrent, unspecified, F41.1 - Generalized anxiety disorder, G47.30 - Sleep apnea, unspecified, G47.61 - Periodic limb movement disorder, I10 - Essential (primary) hypertension, M17.10 - Unilateral primary osteoarthritis, unspecified knee LDL Cholesterol Direct Today D17.9 - Benign lipomatous neoplasm, unspecified, E 66.09 - Other obesity due to excess calories, E66.9 - Obesity, unspecified, F33.9 - Major depressive disorder, recurrent, unspecified, F41.1 - Generalized anxiety disorder, G47.30 - Sleep apnea, unspecified, G47.61 - Periodic limb movement disorder, I10 - Essential (primary) hypertension, M17.10 - Unilateral primary osteoarthritis, unspecified knee Comprehensive Met. Panel Today D17.9 - Benign lipomatous neoplasm, unspecified, E66.09 - Other obesity due to excess calories, E66.9 - Obesity, unspecified, F33.9 - Major depressive disorder, recurrent, unspecified, F41.1 - Generalized anxiety disorder, G47.30 - Sleep apnea, unspecified, G47.61 - Periodic limb movement disorder, I10 - Essential (primary) hypertension, M17.10 - Unilateral primary osteoarthritis, unspecified knee Medications: Refilled atenolol 50 mg PO DAILY 90 tabs 0RF 90 days clonazepam 0.5 mg PO BEDTIME 90 tabs 0RF 90 days losartan 50 mg PO BID 180 tabs 0RF 90 days amlodipine 10 mg PO DAILY 90 tabs 1RF sertraline 100 mg PO DAILY 90 tabs 0RF 90 days F41.1 - Generalized anxiety disorder Coding Level of Care Code Est Pt Level 4 (79772) Diagnoses Hypertension, essential I10 Periodic limb movement disorder G47.61 Primary osteoarthritis of both knees M17.0 Osteoarthritis type: primary Laterality: bilateral Obstructive sleep apnea syndrome G47.33 Sleep apnea type: obstructive Class 2 severe obesity due to excess calories with serious comorbidity and body mass index (BMI) of 37.0 to 37.9 in adult E66.01; Z68.37 Obesity classification: adult class 2 (BMI 35 - 39.9) Serious obesity comorbidity presence: with serious comorbidity Body mass index: BMI 37.0-37.9 Multiple lipomas D17.9 Recurrent major depressive disorder, in partial remission F33.41 Active/Remission status: in partial remission Obesity (BMI 35.0-39.9 without comorbidity) E66.9 Anxiety, generalized F41.1
== END 2023-02-01 16:15 | disposition home or self-care (01) ==
LOC: HO.HMGC 15:42
PROVIDERS: PCP Internal Medicine; Visit Provider Internal Medicine
DX: I10 Essential (primary) hypertension (principal); E66.01 Morbid (severe) obesity due to excess calories; F33.41 Major depressive disorder, recurrent, in partial remission; Z68.37 Body mass index [BMI] 37.0-37.9, adult; G47.61 Periodic limb movement disorder; M17.0 Bilateral primary osteoarthritis of knee; G47.33 Obstructive sleep apnea (adult) (pediatric); D17.9 Benign lipomatous neoplasm, unspecified; E66.9 Obesity, unspecified; F41.1 Generalized anxiety disorder
CPT/HCPCS: 99214

== ENCOUNTER 2023-02-07 09:52 | Outpatient (AMB) | payer OTHER, SELFPAY ==
--- NOTE | 2023-02-07 10:11 | A.OFFVIS_ITS ---
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 Comes for follow-up after almost 2 years. She continues to use CPAP very regularly and sleeps good. She has been using nasal mask, and recently had a new nasal mask, which is not fitting well, and she is having some discomfort with the mask. Not able to describe exactly what issue is, she think she is not getting enough pressure with this new mask. When she goes back to the old mask it works well. Her weight has remained unchanged. Blood pressure and chronic depression remain controlled. [facility], [facility] Medical History Malfunction of continuous positive airway pressure (CPAP) or bilevel positive airway pressure (BPAP) machine [place] on CPAP Obesity (BMI 35.0-39.9 without comorbidity) Anxiety, generalized Osteoarthritis, knee Hypertension, essential Periodic limb movement disorder Surgical History History of hysterectomy with bilateral oophorectomy History of section Family History Father No problems noted. Mother No problems noted. Brother No problems noted. Brother No problems noted. Brother No problems noted. Son No problems noted. Son No problems noted. Other Mental health disorder Social History Housing: House Alcohol intake: never Patient Tobacco Use Status: Current everyday Tobacco user Tobacco use type: Cigarette Cigarettes Per Day: 5 Years Smoked: 30 e-Cigarette/Vaping Use: Never Used Current occupational status: unemployed Cognitive needs: No Hearing needs: No Vision needs: No Review of Systems Const All systems reviewed & are unremarkable except as noted in HPI and below ENT Reports nasal congestion (MILD OFF AND ON ) Card Denies chest pain, Denies leg edema and Denies dyspnea on exertion Resp Denies cough, Denies dyspnea on exertion and Denies wheezing GI Reports no additional complaints Musc Reports no additional complaints Neuro Reports no additional complaints Psych Reports anxiety and Reports depression (TREATED WITH MEDS) Endo Reports no additional complaints Aller/Immun Denies wheezing Physical Exam Vital Signs: Last Vital Signs Pulse 67 02/07/23 10:12 BP 130/64 02/07/23 10:12 Pulse Ox 95 02/07/23 10:12 Oxygen Delivery Method Room Air 02/07/23 10:12 BMI result Body Mass Index 38.4 Const General: healthy appearing (EXCEPT FOR BEING OBESE .), comfortable, no acute distress, alert and awake Orientation/consciousness: patient oriented x3 HEENT Head: Yes normal to inspection General nose exam: No nasal polyps present and No nasal discharge present Face and sinus: Yes sinuses nontender Mouth: oropharynx abnormals (VERY CROWDED AND NARROW, MALLAMPATI CLASS FOUR) Throat: Yes posterior oropharynx normal Eyes General: appearance normal, both eyes and all related structures Neck Neck: Yes normal visual inspection, Yes no lymphadenopathy, Yes trachea midline and Yes no JVD Thyroid: Thyroid normal Chest Chest palpation & inspection: normal inspection of the chest, normal palpation of entire chest wall and no tenderness Resp Effort & Inspection: normal respiratory effort Auscultation: clear to auscultation bilaterally, no rhonchi and no wheezes Cardio Palpation: normal PMI Rate: regular rate Rhythm: regular rhythm Heart sounds: no gallops and no murmurs GI Palpation (GI): Soft to palpation, nontender, No hepatosplenomegaly present and no masses Auscultation: normal bowel sounds Back/Spine/Pelvis Thoracic/Lumbar Spine: thoracic and lumbar spine normal to inspection Skin General skin exam: no rashes or lesions noted Neuro General: patient oriented x3 and no focal motor deficits Cranial nerves: Yes CN's II-XII intact bilaterally Extrem General: Yes normal to inspection, Yes no clubbing, cyanosis or edema and Yes no calf tenderness Psych Appearance: grossly normal and well kempt Speech and movement: Normal speech and movement present Results Reviewed Results Reviewed: Compliance for the last 30 nights is reviewed. She has used 30/30 nights,. 100% average use per night 9 hours 48 minutes. Pressure setting= 12 cm. No air leak is reported Residual AHI 1.1 Assessment & Plan Assessment & Plan (1) Obesity (BMI 35.0-39.9 without comorbidity): Comment: SHE HAS BEEN MODERATELY OBESE ALL ALONG, ADVISED THAT SHE SHOULD TRY TO LOSE ABOUT 10-15 LB OF WEIGHT. DISCUSSED ABOUT DIET AND REDUCING CALORIES INTAKE . Code(s): E66.9 - Obesity, unspecified Plan: as above (2) POL[place] on CPAP: Comment: SHE HAS BEEN ON CPAP, SINCE 2013. HAS BEEN VERY COMPLIANT AND BENEFITTING. NOW WITH THE NEW CPAP MACHINE SHE FEELS MUCH BETTER. The new nasal mask, is not fitting her well, on this seems to be some air leak at night. I checked the mask and it is same as before N-20 , but off medium size. Her previous nasal mask is N-20 of small size. This may be making the difference. ADVISED TO CONTINUE USING REGULARLY. PRESSURE SET AT 12 CMs Code(s): G47.33 - Obstructive sleep apnea (adult) (pediatric); Z99.89 - Dependence on other enabling machines and devices Plan: Order for new supplies is sent, Instructed to have nasal mask N-20 of SMALL SIZE . Coding Level of Care Code Est Pt Level 3 (56309) Diagnoses Obesity (BMI 35.0-39.9 without comorbidity) E66.9 POLINA on CPAP G47.33; Z99.89
[2023-02-07 10:12] VITALS: BP 130/64; PULSE 67; O2SAT 95; BMI 38.4
== END 2023-02-07 10:37 | disposition home or self-care (01) ==
PROVIDERS: PCP Internal Medicine; Visit Provider Internal Medicine
DX: E66.9 Obesity, unspecified (principal); G47.33 Obstructive sleep apnea (adult) (pediatric); Z99.89 Dependence on other enabling machines and devices
CPT/HCPCS: 99213

== ENCOUNTER → 2023-02-07 09:52 | Outpatient (BNVA) | payer OTHER, SELFPAY | PROVIDERS: PCP Internal Medicine; Visit Provider Internal Medicine | DX: G47.33 Obstructive sleep apnea (adult) (pediatric) (principal); E66.9 Obesity, unspecified; Z99.89 Dependence on other enabling machines and devices; Z68.38 Body mass index [BMI] 38.0-38.9, adult | CPT/HCPCS: 99212 ==

== ENCOUNTER 2023-05-29 09:23 | Outpatient (AMB) | payer OTHER, SELFPAY ==
[2023-05-29 09:24] VITALS: BP 128/70; PULSE 74; O2SAT 98; BMI 38.5
--- NOTE | 2023-05-29 09:24 | A.OFFPC_ITS ---
Vital Signs 05/29/23 09:24 Height 5 ft 2 in Weight 210 lb 4 oz BMI 38.5 BP 128/70 Blood Pressure Location Rt brachial Position Sitting Pulse 74 Pulse Source Pulse Oximeter Pulse Oximetry (%) 98 Oxygen Delivery Method Room Air Intake Visit Reasons: 9M follow up Allergies No Known Allergies Allergy (Verified 05/29/23 09:24) Medication List - Last Reconciled 05/29/23 by Norbert Reddy MD amlodipine 10 mg PO DAILY [Bp Monitor As directed] clonazepam 0.5 mg PO BEDTIME 90 days losartan 50 mg PO BID 90 days sertraline 100 mg PO DAILY 90 days Tobacco use date assessed: 05/29/23 Dental Screening Dental Screen Date: 05/29/23 Did you have a dental visit in the last 12 months?: Yes Did you have a dental problem in the last 6 months where you did not have access to dental care?: No Was dental information given to patient?: Patient has dentist HPI 9M follow up HPI Details Patient is a 63-year-old female came in today for her regular follow-up visit. Patient is complaining of feeling epigastric discomfort off and She says that she is not sure if it is related to something she is eating but she will start paying more attention She does not want to start any medication for that, she will take Tums if needed Patient says that when symptoms appear, she drink some water and that helps. EKG done today showed normal sinus rhythm no acute findings, normal sinus rhythm 72 beats per minute Also rarely she says that I feel very weak, and then I eat something and I feel better She does have a family history of diabetes, her brother who is 65 years old is diabetic. Labs were supposed to be done before this visit which patient has not Reminded patient, hemoglobin A1c is already added Osteoarthritis bilateral knees manageable with help of [id number]-[id number] medications Lipomas are stable Hypertension: Patient is currently taking 2 medications amlodipine 10 mg, and losartan 50 mg b.i.d. her blood pressure is stable. Tolerating medications Anxiety and depression stable with sertraline 100 mg, patient also take clonazepam 0.5 mg at night for periodic leg movement disorder She also have a sleep apnea and is using her machine, she is currently seeing Dr. Caban for the management BMI is elevated , patient is trying to lose weight Follow-up 3 months PFSH Medical History Malfunction of continuous positive airway pressure (CPAP) or bilevel positive airway pressure (BPAP) machine POLINA on CPAP Obesity (BMI 35.0-39.9 without comorbidity) Anxiety, generalized Osteoarthritis, knee Hypertension, essential Periodic limb movement disorder Surgical History History of hysterectomy with bilateral oophorectomy History of section Family History Father No problems noted. Mother No problems noted. Brother No problems noted. Brother No problems noted. Brother No problems noted. Son No problems noted. Son No problems noted. Other Mental health disorder Social History Housing: House Alcohol intake: never Patient Tobacco Use Status: Current everyday Tobacco user Tobacco use type: Cigarette Cigarettes Per Day: 5 Years Smoked: 30 e-Cigarette/Vaping Use: Never Used Current occupational status: unemployed Cognitive needs: No Hearing needs: No Vision needs: No Questionnaire Thrive Questionnaire Date Thrive assessed: 11/28/22 AUDIT C Alcohol Use Questionnaire (AUDIT-C) 1. How often do you have a drink containing alcohol?: Never 3. How often do you have six or more drinks on one occasion?: Never Total Score: 0 Score Reviewed/Action Taken: Yes LYNNE-7 AMB Questionnaire LYNNE-7 Date LYNNE - 7 assessed: 11/28/22 Source: Developed by Drs. Reji Gimenez, Kina Patel, Rodolfo Mosley and colleagues, with an educational lamar from [employer]. Review of Systems Const Denies chills and Denies fever(s) ENT Denies epistaxis and Denies nasal discharge Resp Denies chest congestion, Denies cough and Denies hemoptysis GI Denies diarrhea and Denies nausea Skin/Breast Denies rash Neuro Reports no additional complaints Psych Reports no additional complaints Endo Reports no additional complaints Physical exam (Primary Care) Vital Signs: Last Vital Signs Pulse 74 05/29/23 09:24 BP 128/70 05/29/23 09:24 Pulse Ox 98 05/29/23 09:24 Oxygen Delivery Method Room Air 05/29/23 09:24 BMI result Body Mass Index 38.5 Tobacco/Smoking Status: Tobacco use Status Tobacco use date assessed 05/29/23 05/29/23 09:30 Patient Tobacco Use Status Current everyday Tobacco 05/29/23 09:25 Tobacco use type Cigarette 05/29/23 09:25 e-Cigarette/Vaping Use Never Used 05/29/23 09:25 Thrive Assessment: Date of Thrive Assessment Date Thrive assessed 11/28/22 05/29/23 09:25 Const General: cooperative, comfortable and no acute distress Orientation/consciousness: patient oriented x3 HENMT Head: Yes normocephalic Eyes General: appearance normal, both eyes and all related structures Neck Neck: Yes supple Resp Effort & Inspection: normal respiratory effort, no cough and no stridor Cardio Rhythm: regular rhythm Heart sounds: S1 normal heart sound present and S2 normal heart sound present Skin General skin exam: turgor normal Neuro General: patient oriented x3, tone normal and moves all extremities Extrem Right lower extremity: no edema Left lower extremity: no edema Office Procedures EKG [id number], Complete Assessment and Plan Assessment & Plan (1) Epigastric discomfort: Code(s): R10.13 - Epigastric pain (2) Hypertension, essential: Code(s): I10 - Essential (primary) hypertension (3) Periodic limb movement disorder: Code(s): G47.61 - Periodic limb movement disorder (4) Osteoarthritis, knee: Code(s): M17.10 - Unilateral primary osteoarthritis, unspecified knee Qualifiers: Laterality: bilateral Osteoarthritis type: primary Qualified Code(s): M17.0 - Bilateral primary osteoarthritis of knee (5) Sleep apnea: Code(s): G47.30 - Sleep apnea, unspecified Qualifiers: Sleep apnea type: obstructive Qualified Code(s): G47.33 - Obstructive sleep apnea (adult) (pediatric) (6) Obesity due to excess calories: Code(s): E66.09 - Other obesity due to excess calories Qualifiers: Body mass index: BMI 37.0-37.9 Obesity classification: adult class 2 (BMI 35 - 39.9) Serious obesity comorbidity presence: with serious comorbidity Qualified Code(s): E66.01 - Morbid (severe) obesity due to excess calories; Z68.37 - Body mass index [BMI] 37.0-37.9, adult (7) Multiple lipomas: Code(s): D17.9 - Benign lipomatous neoplasm, unspecified (8) Major depression, recurrent: Code(s): F33.9 - Major depressive disorder, recurrent, unspecified Qualifiers: Active/Remission status: in partial remission Qualified Code(s): F33.41 - Major depressive disorder, recurrent, in partial remission (9) Anxiety, generalized: Code(s): F41.1 - Generalized anxiety disorder Plan Patient is a 63-year-old female came in today for her regular follow-up visit. Patient is complaining of feeling epigastric discomfort off and She says that she is not sure if it is related to something she is eating but she will start paying more attention She does not want to start any medication for that, she will take Tums if needed Patient says that when symptoms appear, she drink some water and that helps. EKG done today showed normal sinus rhythm no acute findings, normal sinus rhythm 72 beats per minute Also rarely she says that I feel very weak, and then I eat something and I feel better She does have a family history of diabetes, her brother who is 65 years old is diabetic. Labs were supposed to be done before this visit which patient has not Reminded patient, hemoglobin A1c is already added Osteoarthritis bilateral knees manageable with help of [id number] medications Lipomas are stable Hypertension: Patient is currently taking 2 medications amlodipine 10 mg, and losartan 50 mg b.i.d. her blood pressure is stable. Tolerating medications Anxiety and depression stable with sertraline 100 mg, patient also take clonazepam 0.5 mg at night for periodic leg movement disorder She also have a sleep apnea and is using her machine, she is currently seeing Dr. Caban for the management BMI is elevated , patient is trying to lose weight, she is requesting trial of Wegovy as a weight loss medication Patient is aware of side effects, she says that her is diabetic and he can give her the injection because he is on insulin. I have sent the script for the patient once patient pick it up she may start giving it to herself every week and then need of follow-up appointment in 4 weeks She will get back to me regarding that Follow-up 3 months Orders: Orders AMB EKG-In Office Today E66.09 - Other obesity due to excess calories, I10 - Essential (primary) hypertension, R10.13 - Epigastric pain Medications: New Wegovy (semaglutide (weight loss)) administer weeks 1 through 4 of therapy 0.25 mg (0.5 mL) subcut QWEEK 2 mL 0RF NS Refilled clonazepam 0.5 mg PO BEDTIME 90 tabs 0RF 90 days Coding Level of Care Code Est Pt Level 4 (46629) Diagnoses Epigastric discomfort R10.13 Hypertension, essential I10 Periodic limb movement disorder G47.61 Primary osteoarthritis of both knees M17.0 Laterality: bilateral Osteoarthritis type: primary Obstructive sleep apnea syndrome G47.33 Sleep apnea type: obstructive Class 2 severe obesity due to excess calories with serious comorbidity and body mass index (BMI) of 37.0 to 37.9 in adult E66.01; Z68.37 Body mass index: BMI 37.0-37.9 Obesity classification: adult class 2 (BMI 35 - 39.9) Serious obesity comorbidity presence: with serious comorbidity Multiple lipomas D17.9 Recurrent major depressive disorder, in partial remission F33.41 Active/Remission status: in partial remission Anxiety, generalized F41.1 CPT Codes EKG - CPT: 29810-[id number], Complete ([id number]) Time Spent (min) 42 Comment 5 minute pre visit, 20 with patient, 7 EKG, 5 charting, 5 coordination of care
== END 2023-05-29 10:55 | disposition home or self-care (01) ==
PROVIDERS: PCP Internal Medicine; Visit Provider Internal Medicine
DX: R10.13 Epigastric pain (principal); E66.01 Morbid (severe) obesity due to excess calories; F33.41 Major depressive disorder, recurrent, in partial remission; Z68.37 Body mass index [BMI] 37.0-37.9, adult; I10 Essential (primary) hypertension; G47.61 Periodic limb movement disorder; M17.0 Bilateral primary osteoarthritis of knee; G47.33 Obstructive sleep apnea (adult) (pediatric); D17.9 Benign lipomatous neoplasm, unspecified; F41.1 Generalized anxiety disorder
CPT/HCPCS: 93000; 99214

== ENCOUNTER 2023-05-29 09:49 | Outpatient (REF) | payer OTHER, SELFPAY ==
[2023-05-29 13:34] LABS: MANUAL DIFF FLAG NO
[2023-05-29 13:47] LABS: Basophils Percent Auto 0.4 % (0-2); Eosinophils Absolute Auto 0.3 X10*3/uL (0.0-0.4); Eosinophils Percent Auto 2.5 % (0-4); Hematocrit 42.2 % (37.0-47.0); Hemoglobin 13.7 g/dl (12.0-16.0); Imm Gran Abs Auto 0.03 X10*3/uL (0.00-0.03); Imm Gran Pct Auto 0.3 % (0.0-0.4); Lymphocytes Percent Auto 29.5 % (20-40); Mean Corpuscular HGB Conc 32.5 g/dl (31.0-35.0); Mean Corpuscular Hemoglobin 30.1 pg (27.0-33.0); Mean Corpuscular Volume 92.7 fL (80.0-98.0); Mean Platelet Volume 10.3 fL (9.4-12.3); Monocytes Absolute Auto 0.8 X10*3/uL (0.1-1.2); Monocytes Percent Auto 8.2 % (2-11); Neutrophils Percent Auto 59.1 % (45-73); Platelet Count 325 X10*3/uL (160-400); Red Blood Count 4.55 X10*6/uL (4.20-5.50); Red Cell Distribution Width 13.2 % (11.0-16.0); White Blood Count 10.2 X10*3/uL (4.8-10.8)
[2023-05-29 13:59] LABS: Alanine Aminotransferase 25 U/L (0-31); Albumin Level 4.3 g/dL (3.5-5.0); Alkaline Phosphatase 125 U/L (39-117); Anion Gap 13 (12-20); Aspartate Amino Transferase 22 U/L (5-31); Bilirubin Total 0.3 mg/dL (0.0-1.0); Blood Urea Nitrogen 13 mg/dL (9-16); Calcium 10.4 mg/dL (8.4-10.2); Carbon Dioxide 26 mmol/L (22-29); Chloride 105 mmol/L (96-108); Estimated Glomerular Filt Rate > 60; Glucose Random 84 mg/dL (60-115); Potassium 4.1 mmol/L (3.3-5.1); Sodium 140 mmol/L (135-145)
[2023-05-29 14:01] LABS: Estimated Average Glucose 131 mg/dL; Hemoglobin A1C 150.6643 umol/L; Hemoglobin A1c % 6.2 % (<6.0)
[2023-05-30 11:14] LABS: LDL Cholesterol Direct 141 mg/dL (<100)
== END 2023-05-29 09:50 | disposition home or self-care (01) ==
LOC: HO.HMGCLDS 09:49
PROVIDERS: PCP Internal Medicine; Visit Provider Internal Medicine
DX: D17.9 Benign lipomatous neoplasm, unspecified (principal); F33.9 Major depressive disorder, recurrent, unspecified; E66.09 Other obesity due to excess calories; G47.30 Sleep apnea, unspecified; F41.1 Generalized anxiety disorder; M17.10 Unilateral primary osteoarthritis, unspecified knee; I10 Essential (primary) hypertension; G47.61 Periodic limb movement disorder
CPT/HCPCS: 36415; 80053; 83036; 83721; 85025

== ENCOUNTER 2023-09-03 09:04 | Outpatient (AMB) | payer OTHER, SELFPAY ==
[2023-09-03 09:05] VITALS: BP 128/76; PULSE 76; O2SAT 95; BMI 38.4
--- NOTE | 2023-09-03 09:05 | MHC.PC.OV ---
Vital Signs 09/03/23 09:05 Height 5 ft 2 in Weight 210 lb 2 oz BMI 38.4 BP 128/76 Blood Pressure Location Lt brachial Position Sitting Pulse 76 Pulse Source Pulse Oximeter Pulse Oximetry (%) 95 Oxygen Delivery Method Room Air Intake Visit Reasons: PE Allergies No Known Allergies Allergy (Verified 09/03/23 09:05) Medication List - Last Reconciled 09/03/23 by Norbert Reddy MD amlodipine 10 mg PO DAILY [Bp Monitor As directed] clonazepam 0.5 mg PO BEDTIME 90 days losartan 50 mg PO BID 90 days sertraline 100 mg PO DAILY 90 days Wegovy (semaglutide (weight loss)) 0.25 mg (0.5 mL) subcut QWEEK NS Tobacco use date assessed: 09/03/23 Dental Screening Dental Screen Date: 09/03/23 Did you have a dental visit in the last 12 months?: No Did you have a dental problem in the last 6 months where you did not have access to dental care?: No Was dental information given to patient?: Patient has dentist HPI PE HPI Details Patient is 63-year-old female came in today for physical exam Patient is stable, knee arthritis is stable as well, patient is taking Tylenol as needed Patient is requesting a dermatology referral for skin cancer screening which I have placed for her She have history of total hysterectomy due to benign cause, and do not want to see OBGYN Mammogram was in September of 2021 she is due for that Colonoscopy was 5 years ago as per patient however I was not able to find a record We will send message to gastroenterology department. She continued to have heartburn off and on we did EKG last visit which did not show any acute changes I am sending omeprazole patient is to start taking that 1 at night on empty stomach Wegovy was not approved, however patient does qualify due to presence of hypertension, hyperlipidemia, sleep apnea And obesity we will try again. [facility] Medical History Malfunction of continuous positive airway pressure (CPAP) or bilevel positive airway pressure (BPAP) machine [place] on CPAP Obesity (BMI 35.0-39.9 without comorbidity) Anxiety, generalized Osteoarthritis, knee Hypertension, essential Periodic limb movement disorder Surgical History History of hysterectomy with bilateral oophorectomy History of section Family History Father No problems noted. Mother No problems noted. Brother No problems noted. Brother No problems noted. Brother No problems noted. Son No problems noted. Son No problems noted. Other Mental health disorder Social History Housing: House Alcohol intake: never Patient Tobacco Use Status: Current everyday Tobacco user Tobacco use type: Cigarette Cigarettes Per Day: 5 Years Smoked: 30 e-Cigarette/Vaping Use: Never Used Current occupational status: unemployed Cognitive needs: No Hearing needs: No Vision needs: No Questionnaire PHQ-9 Over the last 2 weeks, how often have you been bothered by any of the following problems? 1. Little interest or pleasure in doing things: not at all 2. Feeling down, depressed, or hopeless: not at all 3. Trouble falling or staying asleep, or sleeping too much: not at all 4. Feeling tired or having little energy: several days 5. Poor appetite or overeating: not at all 6. Feeling bad about yourself - or that you are a failure or have let yourself or your family down: not at all 7. Trouble concentrating on things, such as reading the newspaper or watching television: nearly every day 8. Moving or speaking so slowly that other people could have noticed. Or the opposite - being so fidgety or restless that you have been moving around a lot more than usual: not at all 9. Thoughts that you would be better off or of hurting yourself in some way: not at all Total score: 4 Depression Screening Interpretation: Negative Depression Screening Done: Yes 79715 - PHQ-9 Billing: Yes Source: Developed by Drs. Reji Gimenez, Kina Patel, Rodolfo Mosley and colleagues, with an educational lamar from [employer]. Thrive Questionnaire Date Thrive assessed: 11/28/22 AUDIT C Alcohol Use Questionnaire (AUDIT-C) 1. How often do you have a drink containing alcohol?: Never 3. How often do you have six or more drinks on one occasion?: Never Total Score: 0 Score Reviewed/Action Taken: Yes LYNNE-7 AMB Questionnaire LYNNE-7 Date LYNNE - 7 assessed: 11/28/22 Source: Developed by Drs. Reji Gimenez, Kina Patel, Rodolfo Mosley and colleagues, with an educational lamar from [employer]. Review of Systems Const Denies chills, Denies fever(s) and Denies headache(s) Eyes Denies blurry vision ENT Denies headache(s), Denies nasal discharge, Denies nasal obstruction, Denies odynophagia and Denies sinus pain Card Denies chest pain at rest and Denies chest pain with activity Resp Denies cough and Denies hemoptysis GI Denies diarrhea, Denies odynophagia, Denies vomiting and Denies hematemesis Reports as per HPI Musc Denies abnormal gait Skin/Breast Reports as per HPI Neuro Denies Neuro-related abnormal movements, Denies Abnormal speech present, Denies abnormal gait, Denies headache(s) and Denies Sensory deficit (Neuro) Psych Denies mood swings and Denies paranoia Endo Reports as per HPI Cody/Lymph Reports as per HPI Aller/Immun Reports as per HPI Physical exam (Primary Care) Vital Signs: Last Vital Signs Pulse 76 09/03/23 09:05 BP 128/76 09/03/23 09:05 Pulse Ox 95 09/03/23 09:05 Oxygen Delivery Method Room Air 09/03/23 09:05 BMI result Body Mass Index 38.4 Tobacco/Smoking Status: Tobacco use Status Tobacco use date assessed 09/03/23 09/03/23 09:10 Patient Tobacco Use Status Current everyday Tobacco 09/03/23 09:10 Tobacco use type Cigarette 09/03/23 09:10 e-Cigarette/Vaping Use Never Used 09/03/23 09:10 Depression Screening Interpretation: Negative Thrive Assessment: Date of Thrive Assessment Date Thrive assessed 11/28/22 09/03/23 09:10 Const General: cooperative, comfortable and no acute distress Orientation/consciousness: patient oriented x3 HENMT Head: Yes normocephalic and Yes atraumatic Eyes General: appearance normal, both eyes and all related structures Pupils: Equal, round and reactive pupils present EOM: EOMs intact bilaterally Neck Neck: Yes supple and No lymphadenopathy Thyroid: Thyroid normal Lymphatic: no lymphadenopathy noted Chest Breast/axilla palpation: normal palpation of the breasts Resp Effort & Inspection: normal respiratory effort and able to speak in complete sentences Auscultation: clear to auscultation bilaterally Cardio Heart sounds: S1 normal heart sound present and S2 normal heart sound present GI Palpation (GI): Soft to palpation and nontender Auscultation: normal bowel sounds General: Yes no CVA tenderness Back/Spine/Pelvis Back: no CVA tenderness Skin General skin exam: elasticity normal and turgor normal Neuro General: patient oriented x3 and gait normal Cranial nerves: Yes Equal, round and reactive pupils present Speech: No Abnormal speech present Sensory Exam: No Sensory deficit (Neuro) Coordination: Romberg test negative Extrem General: Yes normal exam except as noted and No edema Assessment and Plan Assessment & Plan (1) Encounter for general adult medical examination with abnormal findings: Code(s): Z00.01 - Encounter for general adult medical examination with abnormal findings (2) Hypertension, essential: Code(s): I10 - Essential (primary) hypertension (3) Periodic limb movement disorder: Code(s): G47.61 - Periodic limb movement disorder (4) Osteoarthritis, knee: Code(s): M17.10 - Unilateral primary osteoarthritis, unspecified knee Qualifiers: Laterality: bilateral Osteoarthritis type: primary Qualified Code(s): M17.0 - Bilateral primary osteoarthritis of knee (5) Anxiety, generalized: Code(s): F41.1 - Generalized anxiety disorder (6) Sleep apnea: Code(s): G47.30 - Sleep apnea, unspecified Qualifiers: Sleep apnea type: obstructive Qualified Code(s): G47.33 - Obstructive sleep apnea (adult) (pediatric) (7) Obesity due to excess calories: Code(s): E66.09 - Other obesity due to excess calories Qualifiers: Body mass index: BMI 37.0-37.9 Obesity classification: adult class 2 (BMI 35 - 39.9) Serious obesity comorbidity presence: with serious comorbidity Qualified Code(s): E66.01 - Morbid (severe) obesity due to excess calories; Z68.37 - Body mass index [BMI] 37.0-37.9, adult (8) Skin cancer screening: Code(s): Z12.83 - Encounter for screening for malignant neoplasm of skin Plan Patient is 63-year-old female came in today for physical exam Patient is stable, knee arthritis is stable as well, patient is taking Tylenol as needed Patient is requesting a dermatology referral for skin cancer screening which I have placed for her She have history of total hysterectomy due to benign cause, and do not want to see OBGYN Mammogram was in September of 2021 she is due for that Colonoscopy was 5 years ago as per patient however I was not able to find a record We will send message to gastroenterology department. She continued to have heartburn off and on we did EKG last visit which did not show any acute changes I am sending omeprazole patient is to start taking that 1 at night on empty stomach Wegovy was not approved, however patient does qualify due to presence of hypertension, hyperlipidemia, sleep apnea And obesity we will try again. Orders: Orders MM tomosynthesis screening BI Today Z12.31 - Encounter for screening mammogram for malignant neoplasm of breast Complete Blood Count Auto Diff Today E66.01 - Morbid (severe) obesity due to excess calories, F41.1 - Generalized anxiety disorder, G47.33 - Obstructive sleep apnea (adult) (pediatric), G47.61 - Periodic limb movement disorder, I10 - Essential (primary) hypertension, M17.0 - Bilateral primary osteoarthritis of knee, Z68.37 - Body mass index [BMI] 37.0-37.9, adult Comprehensive [place]. Panel Fast Today E66.01 - Morbid (severe) obesity due to excess calories, F41.1 - Generalized anxiety disorder, G47.33 - Obstructive sleep apnea (adult) (pediatric), G47.61 - Periodic limb movement disorder, I10 - Essential (primary) hypertension, M17.0 - Bilateral primary osteoarthritis of knee, Z68.37 - Body mass index [BMI] 37.0-37.9, adult Hemoglobin A1c Today E66.01 - Morbid (severe) obesity due to excess calories, F41.1 - Generalized anxiety disorder, G47.33 - Obstructive sleep apnea (adult) (pediatric), G47.61 - Periodic limb movement disorder, I10 - Essential (primary) hypertension, M17.0 - Bilateral primary osteoarthritis of knee, Z68.37 - Body mass index [BMI] 37.0-37.9, adult Lipid Panel Today E66.01 - Morbid (severe) obesity due to excess calories, F41.1 - Generalized anxiety disorder, G47.33 - Obstructive sleep apnea (adult) (pediatric), G47.61 - Periodic limb movement disorder, I10 - Essential (primary) hypertension, M17.0 - Bilateral primary osteoarthritis of knee, Z68.37 - Body mass index [BMI] 37.0-37.9, adult Referrals Dermatology Referral Z12.83 - Encounter for screening for malignant neoplasm of skin Medications: New omeprazole Take 1 capsule on empty stomach at night 20 mg PO DAILY 90 caps 0RF Heartburn Coding Level of Care Code Est Pt Level 3 (76560) Est Pt Prev Care 40-64y(55398) Diagnoses Encounter for general adult medical examination with abnormal findings Z00.01 Hypertension, essential I10 Periodic limb movement disorder G47.61 Primary osteoarthritis of both knees M17.0 Laterality: bilateral Osteoarthritis type: primary Anxiety, generalized F41.1 Obstructive sleep apnea syndrome G47.33 Sleep apnea type: obstructive Class 2 severe obesity due to excess calories with serious comorbidity and body mass index (BMI) of 37.0 to 37.9 in adult E66.01; Z68.37 Body mass index: BMI 37.0-37.9 Obesity classification: adult class 2 (BMI 35 - 39.9) Serious obesity comorbidity presence: with serious comorbidity Skin cancer screening Z12.83
== END 2023-09-03 10:37 | disposition home or self-care (01) ==
PROVIDERS: PCP Internal Medicine; Visit Provider Internal Medicine
DX: Z00.01 Encounter for general adult medical examination with abnormal findings (principal); I10 Essential (primary) hypertension; Z68.37 Body mass index [BMI] 37.0-37.9, adult; E66.01 Morbid (severe) obesity due to excess calories; M17.0 Bilateral primary osteoarthritis of knee; G47.61 Periodic limb movement disorder; F41.1 Generalized anxiety disorder; G47.33 Obstructive sleep apnea (adult) (pediatric); Z12.83 Encounter for screening for malignant neoplasm of skin
CPT/HCPCS: 99213; 99396

== ENCOUNTER → 2023-09-19 13:30 | Outpatient (BNV) | payer OTHER, SELFPAY | PROVIDERS: PCP Internal Medicine; Visit Provider Radiology Diagnostic Radiology | DX: Z12.31 Encounter for screening mammogram for malignant neoplasm of breast (principal) | CPT/HCPCS: 77063; 77067 ==

== ENCOUNTER 2023-09-19 13:37 | Outpatient (REF) | payer OTHER, SELFPAY | END 2023-09-19 13:38 | disposition home or self-care (01) | LOC: HO.MAMMO 13:37 | PROVIDERS: PCP Internal Medicine; Visit Provider Internal Medicine | DX: Z12.31 Encounter for screening mammogram for malignant neoplasm of breast (principal) | CPT/HCPCS: 77063; 77067 ==

== ENCOUNTER 2023-11-29 08:38 | Outpatient (AMB) | payer OTHER, SELFPAY ==
[2023-11-29 08:37] VITALS: BP 120/76; PULSE 78; O2SAT 95; BMI 35.7
--- NOTE | 2023-11-29 08:37 | MHC.PC.OV ---
Vital Signs 11/29/23 08:37 Height 5 ft 2 in Weight 195 lb BMI 35.7 BP 120/76 Blood Pressure Location Rt brachial Position Sitting Pulse 78 Pulse Source Pulse Oximeter Pulse Oximetry (%) 95 Intake Visit Reasons: office visit prescription refill Allergies No Known Allergies Allergy (Verified 11/29/23 08:38) Medication List - Last Reconciled 11/29/23 by Norbert Reddy MD amlodipine 10 mg PO DAILY [Bp Monitor As directed] clonazepam 0.5 mg PO BEDTIME 90 days losartan 50 mg PO BID 90 days omeprazole 20 mg PO DAILY semaglutide (weight loss) 0.5 mg (0.5 mL) subcut QWEEK sertraline 100 mg PO DAILY 90 days Tobacco use date assessed: 09/03/23 Dental Screening Dental Screen Date: 09/03/23 HPI office visit prescription refill HPI Details Patient is a 63-year-old female came in today for her regular follow-up visit. Labs were supposed to be done before this visit which patient has not She says she is fasting today and she can go for the labs Patient is on semaglutide injection 0.5 mg and she was able to lose some weight as well No side effects Osteoarthritis bilateral knees manageable with help of [id number] medications Lipomas are stable Hypertension: Patient is currently taking 2 medications amlodipine 10 mg, and losartan 50 mg b.i.d. her blood pressure is stable. Tolerating medications Anxiety and depression stable with sertraline 100 mg, patient also take clonazepam 0.5 mg at night for periodic leg movement disorder She also have a sleep apnea and is using her machine, she is currently seeing Dr. Caban for the management Follow-up 3 months [facility] Medical History Malfunction of continuous positive airway pressure (CPAP) or bilevel positive airway pressure (BPAP) machine [place] on CPAP Obesity (BMI 35.0-39.9 without comorbidity) Anxiety, generalized Osteoarthritis, knee Hypertension, essential Periodic limb movement disorder Surgical History History of hysterectomy with bilateral oophorectomy History of section Family History Father No problems noted. Mother No problems noted. Brother No problems noted. Brother No problems noted. Brother No problems noted. Son No problems noted. Son No problems noted. Other Mental health disorder Social History Housing: House Alcohol intake: never Patient Tobacco Use Status: Current everyday Tobacco user Tobacco use type: Cigarette Cigarettes Per Day: 5 Years Smoked: 30 e-Cigarette/Vaping Use: Never Used Current occupational status: unemployed Cognitive needs: No Hearing needs: No Vision needs: No Questionnaire Thrive Questionnaire Date Thrive assessed: 11/28/22 LYNNE-7 AMB Questionnaire LYNNE-7 Date LYNNE - 7 assessed: 11/28/22 Source: Developed by Drs. Reji Gimenez, Kina Patel, Rodolfo Mosley and colleagues, with an educational lamar from [employer]. Review of Systems Const Denies chills and Denies fever(s) ENT Denies epistaxis and Denies nasal discharge Card Denies chest pain Resp Denies chest congestion, Denies cough and Denies hemoptysis GI Denies diarrhea and Denies nausea Skin/Breast Denies rash Neuro Reports no additional complaints Psych Reports no additional complaints Endo Reports no additional complaints Physical exam (Primary Care) Vital Signs: Last Vital Signs Pulse 78 11/29/23 08:37 BP 120/76 11/29/23 08:37 Pulse Ox 95 11/29/23 08:37 BMI result Body Mass Index 35.7 Tobacco/Smoking Status: Tobacco use Status Tobacco use date assessed 09/03/23 11/29/23 08:38 Patient Tobacco Use Status Current everyday Tobacco 11/29/23 08:38 Tobacco use type Cigarette 11/29/23 08:38 e-Cigarette/Vaping Use Never Used 11/29/23 08:38 Thrive Assessment: Date of Thrive Assessment Date Thrive assessed 11/28/22 11/29/23 08:38 Const General: cooperative, comfortable and no acute distress Orientation/consciousness: patient oriented x3 HENMT Head: Yes normocephalic Eyes General: appearance normal, both eyes and all related structures Neck Neck: Yes supple Resp Effort & Inspection: normal respiratory effort, no cough and no stridor Cardio Rhythm: regular rhythm Heart sounds: S1 normal heart sound present and S2 normal heart sound present Skin General skin exam: turgor normal Neuro General: patient oriented x3, tone normal and moves all extremities Extrem Right lower extremity: no edema Left lower extremity: no edema Assessment and Plan Assessment & Plan (1) Hypertension, essential: Code(s): I10 - Essential (primary) hypertension (2) Periodic limb movement disorder: Code(s): G47.61 - Periodic limb movement disorder (3) Osteoarthritis, knee: Code(s): M17.10 - Unilateral primary osteoarthritis, unspecified knee Qualifiers: Laterality: bilateral Osteoarthritis type: primary Qualified Code(s): M17.0 - Bilateral primary osteoarthritis of knee (4) Anxiety, generalized: Code(s): F41.1 - Generalized anxiety disorder (5) Sleep apnea: Code(s): G47.30 - Sleep apnea, unspecified Qualifiers: Sleep apnea type: obstructive Qualified Code(s): G47.33 - Obstructive sleep apnea (adult) (pediatric) (6) Obesity due to excess calories: Code(s): E66.09 - Other obesity due to excess calories Qualifiers: Body mass index: BMI 37.0-37.9 Obesity classification: adult class 2 (BMI 35 - 39.9) Serious obesity comorbidity presence: with serious comorbidity Qualified Code(s): E66.01 - Morbid (severe) obesity due to excess calories; Z68.37 - Body mass index [BMI] 37.0-37.9, adult (7) Major depression, recurrent: Code(s): F33.9 - Major depressive disorder, recurrent, unspecified Qualifiers: Active/Remission status: in partial remission Qualified Code(s): F33.41 - Major depressive disorder, recurrent, in partial remission Plan Patient is a 63-year-old female came in today for her regular follow-up visit. Labs were supposed to be done before this visit which patient has not She says she is fasting today and she can go for the labs Patient is on semaglutide injection 0.5 mg and she was able to lose some weight as well No side effects Osteoarthritis bilateral knees manageable with help of [id number]-[id number] medications Lipomas are stable Hypertension: Patient is currently taking 2 medications amlodipine 10 mg, and losartan 50 mg b.i.d. her blood pressure is stable. Tolerating medications Anxiety and depression stable with sertraline 100 mg, patient also take clonazepam 0.5 mg at night for periodic leg movement disorder She also have a sleep apnea and is using her machine, she is currently seeing Dr. Caban for the management Follow-up 3 months Medications: Refilled clonazepam 0.5 mg PO BEDTIME 90 tabs 0RF 90 days sertraline 100 mg PO DAILY 90 tabs 0RF 90 days F41.1 - Generalized anxiety disorder amlodipine 10 mg PO DAILY 90 tabs 1RF Coding Level of Care Code Est Pt Level 4 (96231) Complex EM visit Add On G2211 Diagnoses Hypertension, essential I10 Periodic limb movement disorder G47.61 Primary osteoarthritis of both knees M17.0 Laterality: bilateral Osteoarthritis type: primary Anxiety, generalized F41.1 Obstructive sleep apnea syndrome G47.33 Sleep apnea type: obstructive Class 2 severe obesity due to excess calories with serious comorbidity and body mass index (BMI) of 37.0 to 37.9 in adult E66.01; Z68.37 Body mass index: BMI 37.0-37.9 Obesity classification: adult class 2 (BMI 35 - 39.9) Serious obesity comorbidity presence: with serious comorbidity Recurrent major depressive disorder, in partial remission F33.41 Active/Remission status: in partial remission
== END 2023-11-29 08:50 | disposition home or self-care (01) ==
LOC: HO.HMCC 08:38
PROVIDERS: PCP Internal Medicine; Visit Provider Internal Medicine
DX: I10 Essential (primary) hypertension (principal); E66.01 Morbid (severe) obesity due to excess calories; F33.41 Major depressive disorder, recurrent, in partial remission; Z68.37 Body mass index [BMI] 37.0-37.9, adult; G47.61 Periodic limb movement disorder; M17.0 Bilateral primary osteoarthritis of knee; F41.1 Generalized anxiety disorder; G47.33 Obstructive sleep apnea (adult) (pediatric)

== ENCOUNTER → 2023-11-29 08:38 | Outpatient (BNVA) | payer OTHER, SELFPAY | PROVIDERS: PCP Internal Medicine; Visit Provider Internal Medicine | DX: F41.1 Generalized anxiety disorder (principal); I10 Essential (primary) hypertension; Z79.899 Other long term (current) drug therapy | CPT/HCPCS: 99212 ==

== ENCOUNTER 2023-11-29 08:52 | Outpatient (REF) | payer OTHER, SELFPAY ==
[2023-11-29 10:08] LABS: MANUAL DIFF FLAG NO
[2023-11-29 10:11] LABS: Basophils Absolute Auto 0.1 X10*3/uL (0.0-0.2); Basophils Percent Auto 0.5 % (0-2); Eosinophils Absolute Auto 0.2 X10*3/uL (0.0-0.4); Eosinophils Percent Auto 2.2 % (0-4); Hematocrit 39.8 % (37.0-47.0); Imm Gran Abs Auto 0.03 X10*3/uL (0.00-0.03); Imm Gran Pct Auto 0.3 % (0.0-0.4); Lymphocytes Absolute Auto 2.7 X10*3/uL (1.2-4.9); Lymphocytes Percent Auto 24.7 % (20-40); Mean Corpuscular HGB Conc 32.7 g/dl (31.0-35.0); Mean Corpuscular Volume 91.7 fL (80.0-98.0); Mean Platelet Volume 10.5 fL (9.4-12.3); Monocytes Absolute Auto 0.7 X10*3/uL (0.1-1.2); Monocytes Percent Auto 6.5 % (2-11); Neutrophils Absolute Auto 7.1 x10*3/uL (2.0-8.3); Neutrophils Percent Auto 65.8 % (45-73); Platelet Count 269 X10*3/uL (160-400); Red Blood Count 4.34 X10*6/uL (4.20-5.50); Red Cell Distribution Width 13.3 % (11.0-16.0); White Blood Count 10.8 X10*3/uL (4.8-10.8)
[2023-11-29 10:29] LABS: Alanine Aminotransferase 34 U/L (0-31); Albumin Level 4.2 g/dL (3.5-5.0); Alkaline Phosphatase 115 U/L (39-117); Anion Gap 11 (12-20); Aspartate Amino Transferase 24 U/L (5-31); Bilirubin Total 0.4 mg/dL (0.0-1.0); Blood Urea Nitrogen 15 mg/dL (9-16); Carbon Dioxide 26 mmol/L (22-29); Chloride 108 mmol/L (96-108); Cholesterol 179 mg/dL (<200); Estimated Glomerular Filt Rate > 60; Glucose Fasting 96 mg/dL (60-99); HDL Cholesterol 33 mg/dL (>40); LDL Cholesterol Calculated 122 mg/dL (<100); Potassium 4.2 mmol/L (3.3-5.1); Sodium 141 mmol/L (135-145); Total Protein 7.5 g/dL (6.5-8.0); Triglycerides 120 mg/dL (<150)
[2023-11-29 10:34] LABS: Estimated Average Glucose 117 mg/dL; Hemoglobin A1C 128.5777 umol/L; Hemoglobin A1c % 5.7 % (<6.0)
== END 2023-11-29 08:53 | disposition home or self-care (01) ==
LOC: HO.HMGCLDS 08:52
PROVIDERS: PCP Internal Medicine; Visit Provider Internal Medicine
DX: I10 Essential (primary) hypertension (principal); G47.61 Periodic limb movement disorder; M17.0 Bilateral primary osteoarthritis of knee; F41.1 Generalized anxiety disorder; G47.33 Obstructive sleep apnea (adult) (pediatric); E66.01 Morbid (severe) obesity due to excess calories; Z68.37 Body mass index [BMI] 37.0-37.9, adult
CPT/HCPCS: 36415; 80053; 80061; 83036; 85025

== ENCOUNTER 2024-01-18 09:57 | Outpatient (AMB) | payer OTHER, SELFPAY ==
[2024-01-18 10:06] VITALS: BP 120/72; PULSE 66; TEMP 36.6; O2SAT 95
--- NOTE | 2024-01-18 10:06 | AM.OFFWIN_ITS ---
Intake Vital Signs 01/18/24 10:06 Height 5 ft 2 in BP 120/72 Blood Pressure Location Rt brachial Position Sitting Pulse 66 Pulse Source Pulse Oximeter Temp 97.9 F Temp Source Oral Pulse Oximetry (%) 95 Oxygen Delivery Method Room Air Intake Visit Reasons: EP LT arm pain Intake Note: pt is here for left arm pain for 3 weeks, patient states she hasnt had any injury, no tingling sensation, just achy/sore, denies chest pain or any thing significant symptoms . Patient Tobacco Use Status: Current everyday Tobacco user Allergies No Known Allergies Allergy (Verified 01/18/24 10:06) Do you need a note to return to daycare/school/sports/work: No HPI HPI Comments History of Present Illness Details 63 y/o female patient who presents to [facility] walk in clinic with c/o left upper arm pain x 3 weeks. Describes the pain as Dull and non radiating. Denies CP, SOB, Wheezing or Palpitations. Denies Nausea or vomiting. Denies injury or trauma to the Arm. [facility], [facility] Medical History Malfunction of continuous positive airway pressure (CPAP) or bilevel positive airway pressure (BPAP) machine [place] on CPAP Obesity (BMI 35.0-39.9 without comorbidity) Anxiety, generalized Osteoarthritis, knee Hypertension, essential Periodic limb movement disorder Surgical History History of hysterectomy with bilateral oophorectomy History of section Family History Father No problems noted. Mother No problems noted. Brother No problems noted. Brother No problems noted. Brother No problems noted. Son No problems noted. Son No problems noted. Other Mental health disorder Social History Housing: House Alcohol intake: never Patient Tobacco Use Status: Current everyday Tobacco user Tobacco use type: Cigarette Cigarettes Per Day: 5 Years Smoked: 30 e-Cigarette/Vaping Use: Never Used Current occupational status: unemployed Cognitive needs: No Hearing needs: No Vision needs: No Review of Systems Const All systems reviewed & are unremarkable except as noted in HPI and below Physical Exam Vital Signs: Last Vital Signs Temp 97.9 F 01/18/24 10:06 Pulse 66 01/18/24 10:06 BP 120/72 01/18/24 10:06 Pulse Ox 95 01/18/24 10:06 Oxygen Delivery Method Room Air 01/18/24 10:06 Const General: cooperative and no acute distress Nutritional Appearance: obese Orientation/consciousness: patient oriented x3 Resp Effort & Inspection: normal respiratory effort Auscultation: clear to auscultation bilaterally Cardio Heart sounds: S1 normal heart sound present and S2 normal heart sound present Neuro General: patient oriented x3, gait normal and moves all extremities Extrem Right upper extremity: normal to inspection, full ROM and shoulder/upper arm Details: normal to inspection and normal ROM; no tenderness and no swelling Left upper extremity: normal to inspection, full ROM and shoulder/upper arm Details: inspection abnormal, axillary nerve sensory function normal and normal ROM; no tenderness and no swelling Psych Speech and movement: Normal speech and movement present Assessment & Plan Assessment & Plan (1) Left arm pain: Code(s): M79.602 - Pain in left arm Plan: Acetaminophen for pain relief. Pain seems to be muscular. Ordered Muscle relaxant. Advised to go to ED if pain persists. Medications: New cyclobenzaprine 5 mg PO BEDTIME 10 tabs 0RF M79.602 - Pain in left arm Coding Level of Care Code Est Pt Level 3 (85628) Diagnoses Left arm pain M79.602 Time Spent (min) 15
== END 2024-01-18 10:38 | disposition home or self-care (01) ==
PROVIDERS: PCP Internal Medicine; Visit Provider Nurse Practitioner Family
DX: M79.602 Pain in left arm (principal)

== ENCOUNTER → 2024-01-18 09:57 | Outpatient (BNVA) | payer OTHER, SELFPAY | PROVIDERS: PCP Internal Medicine; Visit Provider Nurse Practitioner Family | DX: M79.602 Pain in left arm (principal) | CPT/HCPCS: 99212 ==

== ENCOUNTER 2024-03-13 11:42 | Outpatient (REF) | payer OTHER, SELFPAY ==
--- NOTE | ~2024-03-13 | XR_ITS ---
EXAMINATION: XR CERVICAL SPINE CLINICAL INFORMATION: M25.512 - Pain in left shoulder COMPARISON: None available. TECHNIQUE: 2 views of the cervical spine were obtained. FINDINGS: Mild straightening of cervical lordosis. The craniovertebral junction and the C1-C2 alignment is normal. The vertebral heights and alignment is normal. There is mild ventral spondylosis C2-3, C3-4, C4-5 and C5-6 disc levels. No aggressive lytic or sclerotic process seen. The prevertebral paravertebral soft tissues are normal. XR/XR cervical spine 2V IMPRESSION: Mild straightening of cervical lordosis without any acute fracture or dislocation. Mild ventral spondylosis C2-3 through C5-6 disc levels. Electronically signed by: Alex Slade MD 03/13/2024 12:39 PM EST
--- NOTE | ~2024-03-13 | XR_ITS ---
EXAMINATION: XR SHOULDER, LEFT CLINICAL INFORMATION: M25.512 - Pain in left shoulder COMPARISON: None available. TECHNIQUE: 3 views of the left shoulder. FINDINGS: Mild loss of glenohumeral and AC joint space with inferior acromial spurring. No acute fracture, loose bodies or bony erosive changes seen. There is no soft tissue calcification. XR/XR shoulder LT min 2V IMPRESSION: Mild degenerative changes left shoulder joint. No loose bodies seen. Electronically signed by: Alex Slade MD 03/13/2024 12:40 PM EST
[2024-03-13 13:00] LABS: MANUAL DIFF FLAG NO
[2024-03-13 13:02] LABS: Basophils Percent Auto 0.3 % (0-2); Eosinophils Absolute Auto 0.2 X10*3/uL (0.0-0.4); Eosinophils Percent Auto 1.7 % (0-4); Hematocrit 40.3 % (37.0-47.0); Hemoglobin 13.2 g/dl (12.0-16.0); Imm Gran Abs Auto 0.04 X10*3/uL (0.00-0.03); Imm Gran Pct Auto 0.3 % (0.0-0.4); Lymphocytes Absolute Auto 2.8 X10*3/uL (1.2-4.9); Lymphocytes Percent Auto 22.6 % (20-40); Mean Corpuscular HGB Conc 32.8 g/dl (31.0-35.0); Mean Corpuscular Hemoglobin 29.3 pg (27.0-33.0); Mean Corpuscular Volume 89.4 fL (80.0-98.0); Mean Platelet Volume 9.8 fL (9.4-12.3); Monocytes Absolute Auto 0.8 X10*3/uL (0.1-1.2); Neutrophils Absolute Auto 8.7 x10*3/uL (2.0-8.3); Neutrophils Percent Auto 69.1 % (45-73); Platelet Count 294 X10*3/uL (160-400); Red Blood Count 4.51 X10*6/uL (4.20-5.50); Red Cell Distribution Width 13.5 % (11.0-16.0); White Blood Count 12.6 X10*3/uL (4.8-10.8)
[2024-03-13 13:24] LABS: Estimated Average Glucose 117 mg/dL; Hemoglobin A1C 136.6142 umol/L; Hemoglobin A1c % 5.7 % (<6.0); Total Hemoglobin (HGBA1C) 3494.2402 umol/L
[2024-03-13 13:42] LABS: Creatinine Urine 133.63 mg/dL; Microalbum/Creatinine Ratio Ur 38.1 ug/mg cr (<30)
[2024-03-13 13:51] LABS: Alanine Aminotransferase 21 U/L (0-31); Albumin Level 4.2 g/dL (3.5-5.0); Anion Gap 11 (12-20); Aspartate Amino Transferase 20 U/L (5-31); Bilirubin Total 0.4 mg/dL (0.0-1.0); Blood Urea Nitrogen 15 mg/dL (9-16); Calcium 9.7 mg/dL (8.4-10.2); Carbon Dioxide 28 mmol/L (22-29); Chloride 107 mmol/L (96-108); Estimated Glomerular Filt Rate > 60; Glucose Random 110 mg/dL (60-115); Lipase 34 U/L (8-78); Potassium 3.9 mmol/L (3.3-5.1); Sodium 142 mmol/L (135-145); Total Protein 7.7 g/dL (6.5-8.0)
[2024-03-13 14:09] LABS: Alkaline Phosphatase 121 U/L (39-117); Amylase 80 U/L (28-100)
[2024-03-16 10:29] LABS: LDL Cholesterol Direct 143 mg/dL (<100)
== END 2024-03-13 11:43 | disposition home or self-care (01) ==
LOC: HO.HMGCX 11:42
PROVIDERS: PCP Internal Medicine; Visit Provider Internal Medicine
DX: I10 Essential (primary) hypertension (principal); F41.1 Generalized anxiety disorder; M17.0 Bilateral primary osteoarthritis of knee; D23.5 Other benign neoplasm of skin of trunk; G47.61 Periodic limb movement disorder; G47.33 Obstructive sleep apnea (adult) (pediatric); E66.01 Morbid (severe) obesity due to excess calories; Z68.37 Body mass index [BMI] 37.0-37.9, adult; D17.9 Benign lipomatous neoplasm, unspecified; F33.41 Major depressive disorder, recurrent, in partial remission; G89.29 Other chronic pain; M25.512 Pain in left shoulder; M54.2 Cervicalgia; Z79.899 Other long term (current) drug therapy
CPT/HCPCS: 36415; 72040; 73030; 80053; 82043; 82150; 82570; 83036; 83690; 83721; 85025; 99212

== ENCOUNTER 2024-03-13 11:42 | Outpatient (AMB) | payer OTHER, SELFPAY ==
--- NOTE | 2024-03-13 11:43 | MHC.PC.OV ---
Vital Signs 03/13/24 11:49 Height 5 ft 2 in Weight 186 lb 4 oz BMI 34.1 BP 128/80 Blood Pressure Location Lt brachial Position Sitting Pulse 78 Pulse Source Pulse Oximeter Pulse Oximetry (%) 92 Oxygen Delivery Method Room Air Intake Visit Reasons: 3 month follow up Allergies No Known Allergies Allergy (Verified 01/18/24 10:06) Medication List - Last Reconciled 03/13/24 by Norbert Reddy MD amlodipine 10 mg PO DAILY [Bp Monitor As directed] clonazepam 0.5 mg PO BEDTIME 90 days cyclobenzaprine 5 mg PO BEDTIME losartan 50 mg PO BID 90 days omeprazole 20 mg PO DAILY semaglutide (weight loss) 1 mg (0.5 mL) subcut QWEEK sertraline 100 mg PO DAILY 90 days Tobacco use date assessed: 09/03/23 Dental Screening Dental Screen Date: 09/03/23 HPI 3 month follow up HPI Details Patient is 64-year-old female came in today for regular follow-up appointment Colonoscopy order was placed September of last but I do not see that done Mammogram was done September last Patient no longer having Pap smears lipomas are stable She has developed a large dermoid cyst upper back which is getting bigger and sometimes causes discomfort Patient would like to have that removed, referral to surgeon placed Also complaining of pain neck left side radiating to shoulder, I see there is no cervical spine x-ray in the chart We will be doing x-ray of neck and shoulder today as a baseline further management after the reports Hypertension: Patient is currently taking 3 medications amlodipine 10 mg, atenolol 50 mg, and losartan 50 mg b.i.d. her blood pressure is stable. Tolerating medications Anxiety and depression stable with sertraline 100 mg, patient also take clonazepam 0.5 mg at night for periodic leg movement disorder She also have a sleep apnea sees Dr. Caban for the management Patient is on Wegovy injections for weight loss, tolerating medication , strength increase to 1 mg for next 3 months Due for labs today Follow-up 3 months [facility] Medical History Malfunction of continuous positive airway pressure (CPAP) or bilevel positive airway pressure (BPAP) machine [place] on CPAP Obesity (BMI 35.0-39.9 without comorbidity) Anxiety, generalized Osteoarthritis, knee Hypertension, essential Periodic limb movement disorder Surgical History History of hysterectomy with bilateral oophorectomy History of section Family History Father No problems noted. Mother No problems noted. Brother No problems noted. Brother No problems noted. Brother No problems noted. Son No problems noted. Son No problems noted. Other Mental health disorder Social History Housing: House Alcohol intake: never Patient Tobacco Use Status: Current everyday Tobacco user Tobacco use type: Cigarette Cigarettes Per Day: 5 Years Smoked: 30 e-Cigarette/Vaping Use: Never Used Current occupational status: unemployed Cognitive needs: No Hearing needs: No Vision needs: No Questionnaire Thrive Questionnaire Date Thrive assessed: 11/28/22 LYNNE-7 AMB Questionnaire LYNNE-7 Date LYNNE - 7 assessed: 11/28/22 Source: Developed by Drs. Reji Gimenez, Kina Patel, Rodolfo Mosley and colleagues, with an educational lamar from [employer]. Review of Systems Const Denies chills, Denies fever(s) and Denies headache(s) Eyes Denies blurry vision ENT Denies headache(s), Denies nasal discharge, Denies nasal obstruction, Denies odynophagia and Denies sinus pain Card Denies chest pain at rest and Denies chest pain with activity Resp Denies cough and Denies hemoptysis GI Denies diarrhea, Denies odynophagia, Denies vomiting and Denies hematemesis Reports as per HPI Musc Denies abnormal gait Skin/Breast Reports as per HPI Neuro Denies Neuro-related abnormal movements, Denies Abnormal speech present, Denies abnormal gait, Denies headache(s) and Denies Sensory deficit (Neuro) Psych Denies mood swings and Denies paranoia Endo Reports as per HPI Cody/Lymph Reports as per HPI Aller/Immun Reports as per HPI Physical exam (Primary Care) Vital Signs: Last Vital Signs Pulse 78 03/13/24 11:49 BP 128/80 03/13/24 11:49 Pulse Ox 92 03/13/24 11:49 Oxygen Delivery Method Room Air 03/13/24 11:49 BMI result Body Mass Index 34.1 Tobacco/Smoking Status: Tobacco use Status Tobacco use date assessed 09/03/23 03/13/24 11:43 Patient Tobacco Use Status Current everyday Tobacco 03/13/24 11:43 Tobacco use type Cigarette 03/13/24 11:43 e-Cigarette/Vaping Use Never Used 03/13/24 11:43 Thrive Assessment: Date of Thrive Assessment Date Thrive assessed 11/28/22 03/13/24 11:43 Const General: cooperative, comfortable and no acute distress Orientation/consciousness: patient oriented x3 HENMT Head: Yes normocephalic and Yes atraumatic Eyes General: appearance normal, both eyes and all related structures Pupils: Equal, round and reactive pupils present EOM: EOMs intact bilaterally Neck Neck: Yes supple Resp Effort & Inspection: normal respiratory effort and able to speak in complete sentences Cardio Heart sounds: S1 normal heart sound present and S2 normal heart sound present GI Palpation (GI): Soft to palpation Auscultation: normal bowel sounds General: Yes no CVA tenderness Back/Spine/Pelvis Back: no CVA tenderness Back/spine/pelvis image: 1. Round cyst nontender size of parker Skin General skin exam: elasticity normal and turgor normal Neuro General: patient oriented x3 and gait normal Cranial nerves: Yes Equal, round and reactive pupils present Speech: No Abnormal speech present Sensory Exam: No Sensory deficit (Neuro) Coordination: tandem gait normal and Romberg test negative Extrem General: Yes normal exam except as noted and No edema Coding Level of Care Code Est Pt Level 5 (96278) Diagnoses Hypertension, essential I10 Anxiety, generalized F41.1 Primary osteoarthritis of both knees M17.0 Laterality: bilateral Osteoarthritis type: primary Dermoid cyst of skin of back D23.5 Periodic limb movement disorder G47.61 Obstructive sleep apnea syndrome G47.33 Sleep apnea type: obstructive Class 2 severe obesity due to excess calories with serious comorbidity and body mass index (BMI) of 37.0 to 37.9 in adult E66.01; Z68.37 Body mass index: BMI 37.0-37.9 Obesity classification: adult class 2 (BMI 35 - 39.9) Serious obesity comorbidity presence: with serious comorbidity Multiple lipomas D17.9 Recurrent major depressive disorder, in partial remission F33.41 Active/Remission status: in partial remission Chronic left shoulder pain M25.512; G89.29 Chronicity: chronic Neck pain M54.2 Assessment & Plan Assessment & Plan (1) Hypertension, essential: Code(s): I10 - Essential (primary) hypertension Category: Medical (2) Anxiety, generalized: Code(s): F41.1 - Generalized anxiety disorder Category: Medical (3) Osteoarthritis, knee: Code(s): M17.10 - Unilateral primary osteoarthritis, unspecified knee Category: Medical Qualifiers: Laterality: bilateral Osteoarthritis type: primary Qualified Code(s): M17.0 - Bilateral primary osteoarthritis of knee (4) Dermoid cyst of skin of back: Code(s): D23.5 - Other benign neoplasm of skin of trunk Category: Medical (5) Periodic limb movement disorder: Code(s): G47.61 - Periodic limb movement disorder Category: Medical (6) Sleep apnea: Code(s): G47.30 - Sleep apnea, unspecified Category: Medical Qualifiers: Sleep apnea type: obstructive Qualified Code(s): G47.33 - Obstructive sleep apnea (adult) (pediatric) (7) Obesity due to excess calories: Code(s): E66.09 - Other obesity due to excess calories Category: Medical Qualifiers: Body mass index: BMI 37.0-37.9 Obesity classification: adult class 2 (BMI 35 - 39.9) Serious obesity comorbidity presence: with serious comorbidity Qualified Code(s): E66.01 - Morbid (severe) obesity due to excess calories; Z68.37 - Body mass index [BMI] 37.0-37.9, adult (8) Multiple lipomas: Code(s): D17.9 - Benign lipomatous neoplasm, unspecified Category: Medical (9) Major depression, recurrent: Code(s): F33.9 - Major depressive disorder, recurrent, unspecified Category: Medical Qualifiers: Active/Remission status: in partial remission Qualified Code(s): F33.41 - Major depressive disorder, recurrent, in partial remission (10) Shoulder pain, left: Code(s): M25.512 - Pain in left shoulder Category: Medical Qualifiers: Chronicity: chronic Qualified Code(s): M25.512 - Pain in left shoulder; G89.29 - Other chronic pain (11) Neck pain: Code(s): M54.2 - Cervicalgia Category: Medical Plan Patient is 64-year-old female came in today for regular follow-up appointment Colonoscopy order was placed September of last year but I do not see that done Mammogram was done September of last year Patient no longer having Pap smears lipomas are stable She has developed a large dermoid cyst upper back which is getting bigger and sometimes causes discomfort Patient would like to have that removed, referral to surgeon placed Also complaining of pain neck left side radiating to shoulder, I see there is no cervical spine x-ray in the chart We will be doing x-ray of neck and shoulder today as a baseline further management after the reports Hypertension: Patient is currently taking 3 medications amlodipine 10 mg, atenolol 50 mg, and losartan 50 mg b.i.d. her blood pressure is stable. Tolerating medications Anxiety and depression stable with sertraline 100 mg, patient also take clonazepam 0.5 mg at night for periodic leg movement disorder She also have a sleep apnea sees Dr. Caban for the management Patient is on Wegovy injections for weight loss, tolerating medication , strength increase to 1 mg for next 3 months Due for labs today Patient wanted handicap placard paperwork filled, which we did due to bilateral knee osteoarthritis patient have difficulty walking long distance 45 minutes spent in care of this patient Follow-up 3 months Orders: Orders Complete Blood Count Auto Diff Today E66.01 - Morbid (severe) obesity due to excess calories, F41.1 - Generalized anxiety disorder, G47.33 - Obstructive sleep apnea (adult) (pediatric), G47.61 - Periodic limb movement disorder, I10 - Essential (primary) hypertension, M17.0 - Bilateral primary osteoarthritis of knee, Z00.01 - Encounter for general adult medical examination with abnormal findings, Z68.37 - Body mass index [BMI] 37.0-37.9, adult Comprehensive Met. Panel Today E66.01 - Morbid (severe) obesity due to excess calories, F41.1 - Generalized anxiety disorder, G47.33 - Obstructive sleep apnea (adult) (pediatric), G47.61 - Periodic limb movement disorder, I10 - Essential (primary) hypertension, M17.0 - Bilateral primary osteoarthritis of knee, Z00.01 - Encounter for general adult medical examination with abnormal findings, Z68.37 - Body mass index [BMI] 37.0-37.9, adult Hemoglobin A1c Today E66.01 - Morbid (severe) obesity due to excess calories, F41.1 - Generalized anxiety disorder, G47.33 - Obstructive sleep apnea (adult) (pediatric), G47.61 - Periodic limb movement disorder, I10 - Essential (primary) hypertension, M17.0 - Bilateral primary osteoarthritis of knee, Z00.01 - Encounter for general adult medical examination with abnormal findings, Z68.37 - Body mass index [BMI] 37.0-37.9, adult Microalbumin, Random (w Creat) Today E66.01 - Morbid (severe) obesity due to excess calories, F41.1 - Generalized anxiety disorder, G47.33 - Obstructive sleep apnea (adult) (pediatric), G47.61 - Periodic limb movement disorder, I10 - Essential (primary) hypertension, M17.0 - Bilateral primary osteoarthritis of knee, Z00.01 - Encounter for general adult medical examination with abnormal findings, Z68.37 - Body mass index [BMI] 37.0-37.9, adult Amylase Today E66.01 - Morbid (severe) obesity due to excess calories, F41.1 - Generalized anxiety disorder, G47.33 - Obstructive sleep apnea (adult) (pediatric), G47.61 - Periodic limb movement disorder, I10 - Essential (primary) hypertension, M17.0 - Bilateral primary osteoarthritis of knee, Z00.01 - Encounter for general adult medical examination with abnormal findings, Z68.37 - Body mass index [BMI] 37.0-37.9, adult LDL Cholesterol Direct Today E66.01 - Morbid (severe) obesity due to excess calories, F41.1 - Generalized anxiety disorder, G47.33 - Obstructive sleep apnea (adult) (pediatric), G47.61 - Periodic limb movement disorder, I10 - Essential (primary) hypertension, M17.0 - Bilateral primary osteoarthritis of knee, Z00.01 - Encounter for general adult medical examination with abnormal findings, Z68.37 - Body mass index [BMI] 37.0-37.9, adult Lipase Today E66.01 - Morbid (severe) obesity due to excess calories, F41.1 - Generalized anxiety disorder, G47.33 - Obstructive sleep apnea (adult) (pediatric), G47.61 - Periodic limb movement disorder, I10 - Essential (primary) hypertension, M17.0 - Bilateral primary osteoarthritis of knee, Z00.01 - Encounter for general adult medical examination with abnormal findings, Z68.37 - Body mass index [BMI] 37.0-37.9, adult XR cervical spine 2V Today M25.512 - Pain in left shoulder, M54.2 - Cervicalgia XR shoulder LT min 2V Today M25.512 - Pain in left shoulder Referrals General Surgery Referral D23.5 - Other benign neoplasm of skin of trunk Medications: Changed From semaglutide (weight loss) administer weeks 1 through 4 of therapy 0.5 mg (0.5 mL) subcut QWEEK 2 mL 0RF E66.01 - Morbid (severe) obesity due to excess calories, G47.33 - Obstructive sleep apnea (adult) (pediatric), I10 - Essential (primary) hypertension, M17.0 - Bilateral primary osteoarthritis of knee, Z68.37 - Body mass index [BMI] 37.0-37.9, adult To semaglutide (weight loss) administer weeks 1 through 4 of therapy 1 mg (0.5 mL) subcut QWEEK 2 mL 0RF E66.01 - Morbid (severe) obesity due to excess calories, G47.33 - Obstructive sleep apnea (adult) (pediatric), I10 - Essential (primary) hypertension, M17.0 - Bilateral primary osteoarthritis of knee, Z68.37 - Body mass index [BMI] 37.0-37.9, adult Refilled semaglutide (weight loss) administer weeks 1 through 4 of therapy 1 mg (0.5 mL) subcut QWEEK 2 mL 2RF E66.01 - Morbid (severe) obesity due to excess calories, G47.33 - Obstructive sleep apnea (adult) (pediatric), I10 - Essential (primary) hypertension, M17.0 - Bilateral primary osteoarthritis of knee, Z68.37 - Body mass index [BMI] 37.0-37.9, adult
[2024-03-13 11:49] VITALS: BP 128/80; PULSE 78; O2SAT 92; BMI 34.1
== END 2024-03-13 12:35 | disposition home or self-care (01) ==
PROVIDERS: PCP Internal Medicine; Visit Provider Internal Medicine
DX: I10 Essential (primary) hypertension (principal); E66.01 Morbid (severe) obesity due to excess calories; F33.41 Major depressive disorder, recurrent, in partial remission; Z68.37 Body mass index [BMI] 37.0-37.9, adult; D23.5 Other benign neoplasm of skin of trunk; M17.0 Bilateral primary osteoarthritis of knee; F41.1 Generalized anxiety disorder; G47.61 Periodic limb movement disorder; G47.33 Obstructive sleep apnea (adult) (pediatric); D17.9 Benign lipomatous neoplasm, unspecified; M25.512 Pain in left shoulder; G89.29 Other chronic pain

== ENCOUNTER → 2024-03-13 12:09 | Outpatient (BNV) | payer OTHER, SELFPAY | PROVIDERS: PCP Internal Medicine; Visit Provider Radiology Diagnostic Radiology | DX: M25.512 Pain in left shoulder (principal) | CPT/HCPCS: 72040; 73030 ==

== ENCOUNTER 2024-03-19 08:26 | Outpatient (AMB) | payer OTHER, SELFPAY ==
--- NOTE | 2024-03-19 09:23 | A.OFFPC_ITS ---
Intake Visit Reasons: x ray results Allergies No Known Allergies Allergy (Verified 03/19/24 09:23) Medication List - Last Reconciled 03/19/24 by Norbert Reddy MD amlodipine 10 mg PO DAILY [Bp Monitor As directed] clonazepam 0.5 mg PO BEDTIME 90 days cyclobenzaprine 5 mg PO BEDTIME losartan 50 mg PO BID 90 days omeprazole 20 mg PO DAILY semaglutide (weight loss) 1 mg (0.5 mL) subcut QWEEK sertraline 100 mg PO DAILY 90 days Tobacco use date assessed: 03/19/24 Dental Screening Dental Screen Date: 03/19/24 Did you have a dental visit in the last 12 months?: Yes Did you have a dental problem in the last 6 months where you did not have access to dental care?: No Was dental information given to patient?: Patient has dentist HPI x ray results HPI Details Telehealth Attestation This medical chart was created based on telephonic communication with the patient. All information has been accurately documented as conveyed during the conversation. This is a tele health medical visit History - bulleted - The patient is a 64-year-old female pr esenting with chronic shoulder pain. Arthritis has been diagnosed in the shoulder, and similar symptoms are present in the knees. - Cervical spondylosis identified as con tributing to discomfort in the neck; muscle spasms have been observed. Previously prescribed cyclobenzaprine for muscle spasms in January. - Shoulder pain initially addressed in a walk-in clinic, where medication was prescribed, leading to temporary improvement but requiring further management. - Blood investigations reveal a slightly elevated liver enzyme and worsening cholesterol levels since last measurement. A1c level recorded at 5.7, deemed within acceptable limits. X-rays of cervical spine and shoulder done recently left side showed Mild straightening of cervical lordosis without any acute fracture or dislocation. Mild ventral spondylosis C2-3 through C5-6 disc levels. shoulder xray Mild degenerative changes left shoulder joint. No loose bodies seen. Plan The patient is recommended to maintain regular home exercise activities to manage arthritis of the shoulder and neck. Pharmacotherapy with cyclobenzaprine will be continued to address muscle spasms. An MRI will be considered if symptoms indicative of nerve compression . Monitoring and managing hyperlipidemia through lifestyle and potentially medication adjustments will be crucial, given the current laboratory results. Continuous management of these chronic conditions will be supported through an integrative approach balancing medication and physical activity. [facility], [facility] Medical History Malfunction of continuous positive airway pressure (CPAP) or bilevel positive airway pressure (BPAP) machine [place] on CPAP Obesity (BMI 35.0-39.9 without comorbidity) Anxiety, generalized Osteoarthritis, knee Hypertension, essential Periodic limb movement disorder Surgical History History of hysterectomy with bilateral oophorectomy History of section Family History Father No problems noted. Mother No problems noted. Brother No problems noted. Brother No problems noted. Brother No problems noted. Son No problems noted. Son No problems noted. Other Mental health disorder Social History Housing: House Alcohol intake: never Patient Tobacco Use Status: Current everyday Tobacco user Tobacco use type: Cigarette Cigarettes Per Day: 5 Years Smoked: 30 Packs per year/per ci.50 e-Cigarette/Vaping Use: Never Used Current occupational status: unemployed Cognitive needs: No Hearing needs: No Vision needs: No Questionnaire PHQ-9 Over the last 2 weeks, how often have you been bothered by any of the following problems? 1. Little interest or pleasure in doing things: not at all 2. Feeling down, depressed, or hopeless: not at all 3. Trouble falling or staying asleep, or sleeping too much: not at all 4. Feeling tired or having little energy: several days 5. Poor appetite or overeating: not at all 6. Feeling bad about yourself - or that you are a failure or have let yourself or your family down: not at all 7. Trouble concentrating on things, such as reading the newspaper or watching television: nearly every day 8. Moving or speaking so slowly that other people could have noticed. Or the opposite - being so fidgety or restless that you have been moving around a lot more than usual: not at all 9. Thoughts that you would be better off or of hurting yourself in some way: not at all Total score: 4 Depression Screening Interpretation: Negative Depression Screening Done: Yes 72105 - PHQ-9 Billing: Yes Source: Developed by Drs. Reji Gimenez, Kina Patel, Rodolfo Mosley and colleagues, with an educational lamar from [employer]. Thrive Questionnaire Date Thrive assessed: 03/19/24 I am a: Patient What is your living situation today?: I have a steady place to live Within the past 12 months, did the food you bought not last and you didn't have the money to get more?: Never true Within the past 12 months, did you worry whether your food would run out before you got money to buy more?: Never true Do you have trouble paying for medicines?: No Do you have trouble getting transportation to medical appointments?: No Do you have trouble paying your heating and electricity bill?: No Do you have trouble taking care of your child, family member or friend?: No Do you have trouble with day-to-day activities such as bathing, preparing meals, shopping, managing finances, etc.?: No Are you currently unemployed and looking for a job?: No Are you interested in more education?: No Please select the resources that you would like help with: None Currently or been in a relationship where the following occur: No concerns reported THRIVE Score: 0 AUDIT C Alcohol Use Questionnaire (AUDIT-C) 1. How often do you have a drink containing alcohol?: Never 3. How often do you have six or more drinks on one occasion?: Never Total Score: 0 Score Reviewed/Action Taken: Yes LYNNE-7 AMB Questionnaire LYNNE-7 Date LYNNE - 7 assessed: 03/19/24 Feeling nervous, anxious, or on edge: 0 = Not at all Not being able to stop or control worryin = Not at all Worrying too much about different things: 0 = Not at all Trouble relaxin = Not at all Being so restless that it is hard to sit still: 0 = Not at all Becoming easily annoyed or irritable: 0 = Not at all Feeling afraid as if something awful might happen: 0 = Not at all Total LYNNE-7 score (0-4 normal; 5-9 mild; 10-14 moderate; 15-21 severe): 0 Source: Developed by Drs. Reji Gimenez, Rodolfo Cortes and colleagues, with an educational lamar from [employer]. LYNNE-7 Assessment Billing LYNNE-7 Assessment Tool: LYNNE-7 Assessment 22089 Review of Systems Const Denies chills and Denies fever(s) ENT Denies epistaxis and Denies nasal discharge Card Denies chest pain Resp Denies chest congestion, Denies cough and Denies hemoptysis GI Denies diarrhea and Denies nausea Skin/Breast Denies rash Neuro Reports no additional complaints Psych Reports no additional complaints Endo Reports no additional complaints Physical exam (Primary Care) Tobacco/Smoking Status: Tobacco use Status Tobacco use date assessed 03/19/24 03/19/24 09:26 Patient Tobacco Use Status Current everyday Tobacco 03/19/24 09:26 Tobacco use type Cigarette 03/19/24 09:26 e-Cigarette/Vaping Use Never Used 03/19/24 09:26 PHQ-9: PHQ-9 Score PHQ-9: Total score 4 03/20/24 08:02 Depression Screening Interpretation: Negative Thrive Assessment: Date of Thrive Assessment Date Thrive assessed 03/19/24 03/19/24 09:26 Currently or been in a relationship where the following occur: No concerns reported Telehealth Telehealth Telehealth Platform: [facility] Location of provider rendering services: practice address Location of patient: address on file Patient Identification confirmed using: Name, : Yes Telehealth method: voice only Patient verbally consented to treatment: Yes Patient verbally consented to billing insurance company: Yes Patient informed of any privacy concerns related to visit: Yes Minutes spent on Phone/Video with Pt.: 13 Coding Level of Care Code Tele Est Pt Level 3 (40102) Diagnoses Neck pain M54.2 Chronic left shoulder pain M25.512; G89.29 Chronicity: chronic Additional Codes LYNNE-7 Assessment Billing - LYNNE-7 Assessment Tool: LYNNE-7 Assessment 16864 ([id number]) PHQ-9 - 32867 - PHQ-9 Billing: Yes ([id number]) Assessment & Plan Assessment & Plan (1) Neck pain: Code(s): M54.2 - Cervicalgia Category: Medical (2) Shoulder pain, left: Code(s): M25.512 - Pain in left shoulder Category: Medical Qualifiers: Chronicity: chronic Qualified Code(s): M25.512 - Pain in left shoulder; G89.29 - Other chronic pain Plan Telehealth Attestation This medical chart was created based on telephonic communication with the patient. All information has been accurately documented as conveyed during the conversation. This is a tele health medical visit History - bulleted - The patient is a 64-year-old female presenting with chronic shoulder pain. Arthritis has been diagnosed in the shoulder, and similar symptoms are present in the knees. - Cervical spondylosis identified as contributing to discomfort in the neck; muscle spasms have been observed. Previously prescribed cyclobenzaprine for muscle spasms in January. - Shoulder pain initially addressed in a walk-in clinic, where medication was prescribed, leading to temporary improvement but requiring further management. - Blood investigations reveal a slightly elevated liver enzyme and worsening cholesterol levels since last measurement. A1c level recorded at 5.7, deemed within acceptable limits. X-rays of cervical spine and shoulder done recently left side showed Mild straightening of cervical lordosis without any acute fracture or dislocation. Mild ventral spondylosis C2-3 through C5-6 disc levels. shoulder xray Mild degenerative changes left shoulder joint. No loose bodies seen. Plan The patient is recommended to maintain regular home exercise activities to manage arthritis of the shoulder and neck. Pharmacotherapy with cyclobenzaprine will be continued to address muscle spasms. An MRI will be considered if symptoms indicative of nerve compression . Monitoring and managing hyperlipidemia through lifestyle and potentially medication adjustments will be crucial, given the current laboratory results. Continuous management of these chronic conditions will be supported through an integrative approach balancing medication and physical activity. Medications: Refilled semaglutide (weight loss) administer weeks 1 through 4 of therapy 1 mg (0.5 mL) subcut QWEEK 2 mL 2RF E66.01 - Morbid (severe) obesity due to excess calories, G47.33 - Obstructive sleep apnea (adult) (pediatric), I10 - Essential (primary) hypertension, M17.0 - Bilateral primary osteoarthritis of knee, Z68.37 - Body mass index [BMI] 37.0- 37.9, adult cyclobenzaprine 5 mg PO BEDTIME 90 tabs 0RF M54.2 - Cervicalgia
== END 2024-03-19 10:09 | disposition home or self-care (01) ==
LOC: HO.HMCC 08:26
PROVIDERS: PCP Internal Medicine; Visit Provider Internal Medicine
DX: M54.2 Cervicalgia (principal); M25.512 Pain in left shoulder; G89.29 Other chronic pain

== ENCOUNTER → 2024-03-19 08:26 | Outpatient (BNVA) | payer OTHER, SELFPAY | PROVIDERS: PCP Internal Medicine; Visit Provider Internal Medicine | DX: M54.2 Cervicalgia (principal); M25.512 Pain in left shoulder; G89.29 Other chronic pain | CPT/HCPCS: 96127 ==

== ENCOUNTER 2024-04-08 08:45 | Outpatient (AMB) | payer OTHER, SELFPAY ==
--- OUTSIDE RECORDS SUMMARY | 2024-04-08 08:49 | XMS_ITS | Encounter Summary ---
Author Organization [employer] Address [address] [place] [address] Care Team Providers Care Zipper Repairer Name Role Phone Unavailable Primary Care Provider Unavailabl e Encounter Details Date Type Department Care Team (Latest Contact Info) Description 11/14/2020 Abstract [facility] CONVERSIONS Dental, Provider, DDS Social History Tobacco Use Types Packs/Day Years Used Date Smoking Tobacco: Never Assessed Comments Unknown Sex and Gender Information Value Date Recorded Sex Assigned at Female 01/01/2022 10:27 AM EDT Legal Sex Female 10:27 AM EDT Gender Identity Female 01/01/2022 10:27 AM EDT Sexual Orientation Straight 01/01/2022 10 :27 AM EDT documented as of this encounter Plan of Treatment Not on file documented as of this encounter Visit Diagnoses Not on filedocumented in this encounter
--- OUTSIDE RECORDS SUMMARY | 2024-04-08 08:49 | XMS_ITS | Encounter Summary ---
Author Organization [employer] Address [address] [place] [address] Care Team Providers Care Librarian Head Name Role Phone Unavailable Primary Care Provider Unavailabl e Encounter Details Date Type Department Care Team (Latest Contact Info) Description 08/20/2018 Abstract [facility] CONVERSIONS Dental, Provider, DDS Social History Tobacco [...]
--- OUTSIDE RECORDS SUMMARY | 2024-04-08 08:49 | XMS_ITS | Clinical Summary ---
Author Organization [employer] Address [address] [place] [address] [address] [place] [address] Care Team Providers Care Bookmaker Map Name Role Phone Unavailable Primary Care Provider Unavailabl e Allergies No known active allergies Medications clonazePAM (KlonoPIN) 0.5 MG tablet Take 0.5 mg by mouth at bedtime. 05/30/19 23 Active atenolol (Tenormin) 50 MG tablet TAKE 1 TABLET BY MOUTH EVERY DAY FOR 90 DAYS 05/23/19 23 Active amLODIPine (Norvasc) 10 MG tablet Take 10 mg by mouth in the morning. 04/19/19 23 Active losartan (Cozaar) 50 MG tablet Take 50 mg by mouth 2 times daily. 04/19/19 23 Active sertraline (Zoloft) 100 MG tablet Take 100 mg by mouth in the morning. 04/19/19 23 Active ibuprofen 800 MG tablet Take 1 tablet by mouth every 8 (eight) hours. 10/30/19 19 Active Wegovy 0.25 MG/0.5ML solution auto-injector INJECT 0.25 MG (0.5 ML) SUBCUTANEOUSLY EVERY WEEK ADMINISTER WEEKS 1 THROUGH 4 OF THERAPY 09/16/19 24 Active omeprazole (PriLOSEC) [address] capsule TAKE 1 CAPSULE BY MOUTH DAILY FOR HEARTBURN ON AN EMPTY STOMACH AT NIGHT 09/03/19 24 Active Sodium Fluoride 1.1 % creamIndications:De ntin hypersensitivity [place] teeth for 2 minutes, morning and night. Spit, do not rinse. Do not eat or drink anything for 30 minutes following use. 112 g 3 01/02/20 24 Active Active Problems No known active problems Social History Tobacco Use Types Packs/Day Years Used Date Smoking Tobacco: Every Day Cigarettes Smokeless Tobacco: Never Tobacco Cessation:Ready to Q uit: No; Counseling Given: No Alcohol Use Standard Drinks/Week Comments Never 0 (1 standard drink = 0.6 oz pur e alcohol) Comments Unknown Sex and Gender Information Value Date Recorded Sex Assigned at Female 01/01/2022 10:27 AM EDT Legal Sex Female 10:27 AM EDT Gender Identity Female 01/01/2022 10:27 AM EDT Sexual Orientation Straight 01/01/2022 10 :27 AM EDT Last Filed Vital Signs Vital Sign Reading Time Taken Comments Blood Pressure 132/88 01/02/2024 11:17 AM EDT Pulse 60 01/02/2024 11:17 AM EDT Temperature - - Respiratory Rate - - Oxygen Saturation - - Inhaled Oxygen Concentration - - Weight - - Height - - Body Mass Index - - Plan of Treatment Health Maintenance Due Date Last Done Comments CT Colonography 1962 Colonoscopy 1962 Colorectal Cancer Screening 1962 Depression Screening 1962 FIT DNA/Cologuard 1962 FIT 1962 FOBT 1962 HIV Screening 1962 Lipid Panel 1962 SDOH Screening 1962 Sigmoidoscopy 1962 Pneumococcal Vaccine: Pediatrics (0 to 5 Years) and At-Risk Patients (6 to 49) Years) (1 of 2 - PCV) 02/16/1968 Alcohol/Substance Use Screening 1974 Hepatitis C Screening 02/16/1980 DTaP/Tdap/Td Vaccines (1 - Tdap) 1981 Pneumococcal Vaccine: 50+ Years (1 of 2 - PCV) 1981 Pap Smear 1983 Cervical Cancer Screening 02/16/1992 HPV/Cotest 02/16/1992 Mammogram 2002 Zoster Vaccines (1 of 2) 02/16/2012 COVID-19 Vaccine ( season) 2023 02/23/2021, 05/04/2020, 04/13/2020 Dental Oral Exam 03/29/2024 09/26/2023 Dental Prophylaxis 03/29/2024 09/26/2023 Dental X-Ray: Bitewings 09/26/2024 09/26/2023 Tobacco Screening 01/01/2025 01/02/2024 Dental X-Ray: Full Mouth 09/26/2026 09/26/2023 RSV Patients and Patients Aged 60 years or older (1 - 1-dose 75+ series) 2037 Influenza Vaccine Completed 11/29/2023, , 11/22/2021, Additional history exists HIB Vaccines Aged Out No longer eligi ble based on patient's age to complete this topic HPV Vaccines Aged Out No longer eligi ble based on patient's age to complete this topic Hepatitis A Vaccines Aged Out No long er eligible based on patient's age to complete this topic Hepatitis B Vaccines Aged Out No long er eligible based on patient's age to complete this topic IPV Vaccines Aged Out No longer eligi ble based on patient's age to complete this topic Meningococcal Vaccine Aged Out No shena radha eligible based on patient's age to complete this topic RSV under 20 months Aged Out No longe r eligible based on patient's age to complete this topic Rotavirus Vaccines Aged Out No longer eligible based on patient's age to complete this topic Procedures Procedure Name Priority Date/Time Associated Diagnosis Comments PROPHYLAXIS - ADULT Routine 09/26/2023 2 :00 PM EDT DIAGNOSTIC - DIAGNOSTIC IMAGING - INTRAORAL - COMPREHENSIVE SERIES OF RADIOGRAPHIC IMAGES Routine 09/26/2023 2:00 PM EDT PERIODIC ORAL EVALUATION - ESTABLISHED PATIENT Routine 09/26/2023 2:00 PM EDT from Last 3 Months or Most Recently Relevant to Health Maintenance Insurance DENTAL - HSN PARTIAL (MEDICAID)
--- OUTSIDE RECORDS SUMMARY | 2024-04-08 08:49 | XMS_ITS | Encounter Summary ---
Author Organization [employer] Address [address] [place] [address] Care Team Providers Care Flight Attendant Name Role Phone Unavailable Primary Care Provider Unavailabl e Encounter Details Date Type Department Care Team (Latest Contact Info) Description 10/12/2021 Abstract [facility] CONVERSIONS Dental, Provider, DDS Social History [...]
--- NOTE | 2024-04-08 09:01 | MHC.OFFVIS ---
Intake Visit Reasons: Cyst mid upper back Allergies No Known Allergies Allergy (Verified 03/19/24 09:23) HPI Comments Details: Patient presents with her son. She has had 2 sebaceous cysts involving the upper and lower back for many years time. They have markedly increased in size and become more symptomatic. He would like to have her them removed. She has no such lesions elsewhere. Chart was reviewed and patient evaluated [facility] Medical History Malfunction of continuous positive airway pressure (CPAP) or bilevel positive airway pressure (BPAP) machine [place] on CPAP Obesity (BMI 35.0-39.9 without comorbidity) Anxiety, generalized Osteoarthritis, knee Hypertension, essential Periodic limb movement disorder Surgical History History of hysterectomy with bilateral oophorectomy History of section Family History Father No problems noted. Mother No problems noted. Brother No problems noted. Brother No problems noted. Brother No problems noted. Son No problems noted. Son No problems noted. Other Mental health disorder Social History Housing: House Alcohol intake: never Patient Tobacco Use Status: Current everyday Tobacco user Tobacco use type: Cigarette Cigarettes Per Day: 5 Years Smoked: 30 e-Cigarette/Vaping Use: Never Used Current occupational status: unemployed Cognitive needs: No Hearing needs: No Vision needs: No Physical Exam Chest Other: Chest breath sounds bilaterally, HS 1 in 2 GI Other: Abdomen corpulent, soft, benign Back/Spine/Pelvis Other: Patient was to very large sebaceous cyst involving the upper and lower back. The upper 1 measures roughly 7 x 4 cm on low 1 measures roughly 6 x 5 cm Assessment & Plan Assessment & Plan (1) Sebaceous cyst: Code(s): L72.3 - Sebaceous cyst Category: Surgical Plan Because of the size and location of these 2 large sebaceous cyst, I think the patient would be best served in an ambulatory setting. The risks, benefits, and alternatives of excision of the stool sebaceous cyst/back masses were reviewed with the patient included but not limited to bleeding, infection, recurrence, numbness, pain, scarring, wound dehiscence, seroma formation and the patient wishes to proceed. All questions answered. Arrangements made for this on a day which is convenient for her. Coding Level of Care Code New Pt Level 5 (95291) Diagnoses Sebaceous cyst L72.3
== END 2024-04-08 09:23 | disposition home or self-care (01) ==
PROVIDERS: PCP Internal Medicine; Visit Provider Surgery
DX: L72.3 Sebaceous cyst (principal)
CPT/HCPCS: 99204

== ENCOUNTER → 2024-04-08 08:45 | Outpatient (BNVA) | payer OTHER, SELFPAY | PROVIDERS: PCP Internal Medicine; Visit Provider Surgery | DX: L72.3 Sebaceous cyst (principal) | CPT/HCPCS: 99202 ==

== ENCOUNTER 2024-05-07 09:53 | Day surgery (SDC) | payer OTHER, SELFPAY ==
--- OUTSIDE RECORDS SUMMARY | 2024-04-28 17:08 | XMS_ITS | Encounter Summary ---
Author Organization [employer] Address [address] [place] [address] Care Team Providers Care Hydro Station Operator Name Role Phone Unavailable Primary Care Provider Unavailabl e Encounter Details Date Type Department Care Team (Latest Contact Info) Description 10/12/2021 Abstract [facility] CONVERSIONS Dental, Provider, DDS Social History [...]
--- OUTSIDE RECORDS SUMMARY | 2024-04-28 17:08 | XMS_ITS | Clinical Summary ---
Author Organization [employer] Address [address] [place] [address] [address] [place] [address] Care Team Providers Care Area Cleaner Name Role Phone Unavailable Primary Care Provider [...] Sodium Fluoride 1.1 % creamIndications:De ntin hypersensitivity [place] teeth for 2 minutes, morning and night. [...] Panel 1962 SDOH Screening 1962 Sigmoidoscopy 1962 Alcohol/Substance Use Screening 1974 Hepatitis C Screening [...] ADULT Routine 09/26/2023 2 :00 PM EDT INTRAORAL - COMPLETE SERIES OF RADIOGRAPHIC IMAGES Routine 09/26/2023 2:00 PM EDT PERIODIC ORAL EVALUATION - ESTABLISHED PATIENT Routine 09/26/2023 2:00 PM EDT from Last 3 Months or Most Recently Relevant to Health Maintenance Insurance DENTAL - HSN PARTIAL (MEDICAID)
--- OUTSIDE RECORDS SUMMARY | 2024-04-28 17:08 | XMS_ITS | Encounter Summary ---
Author Organization [employer] Address [address] [place] [address] Care Team Providers Care Roll Edge Machine Operator Name Role Phone Unavailable Primary Care Provider Unavailabl e Encounter Details Date Type Department Care Team (Latest Contact Info) Description 11/14/2020 Abstract [facility] CONVERSIONS Dental, Provider, DDS Social History [...]
--- OUTSIDE RECORDS SUMMARY | 2024-04-28 17:08 | XMS_ITS | Encounter Summary ---
Author Organization [employer] Address [address] [place] [address] Care Team Providers Care Enrollment Management Manager Name Role Phone Unavailable Primary Care Provider Unavailabl e Encounter Details Date Type Department Care Team (Latest Contact Info) Description 08/20/2018 Abstract [facility] CONVERSIONS Dental, Provider, DDS Social History [...]
[2024-05-05 14:27] VITALS: BMI 32.4
--- NOTE | 2024-05-06 09:46 | MHC.SHP ---
Pre-Procedural Eval Section A - 24 Hr Update-Section A only Date of Service: 05/07/24 The patient is an INPATIENT: No Changes since office visit: No Cold of Flu in the past 2 weeks, No New Medical Problems, No Changes in Medication and No Patient answered all questions Section B - Complete if H&P > 30 days Chief Complaint: Sebaceous cyst Allergies: Allergies Allergy/AdvReac Type Severity Reaction Status Date / Time No Known Allergies Allergy Verified 05/05/24 14:30 Review of Systems Sugical H&P ROS: Negative: Constitution, Cardiovascular, Respiratory, Neurological, Psychiatric, Hem-Onc, Allergic/Immunologic, Gastrointestinal, Genitourinary, Musculoskeletal, Integumentary, Endocrine and Eyes/Ears/Nose/Throat Exam Surgical H&P Exam: Normal: HEENT, Normal: Heart, Normal: Lungs, Normal: Extremities, Normal: Abdomen, Normal: Skin and Normal: Neurological Plan I have reviewed the history and physical and performed a pertinent physical examination on my patient. No changes have occurred unless specified. Time Spent With Patient Time: Total time managing care of this patient today ____ minutes.
--- NOTE | 2024-05-06 11:45 | HO.ANESPROP2 ---
HPI - Anesthesia Eval Consult details Narrative: 64yo F for Wide Local Excision Large Back Mass x 2 Anesthesia Pre-Procedure Meds Is the patient on any of the following meds?: GLP1/DPP4 PMFSH Active Problems Active Problems: All Active Problems Sebaceous cyst (Acute) Dermoid cyst of skin of back (Acute) Neck pain (Acute) Shoulder pain, left (Acute) Colon cancer screening (Acute) Skin cancer screening (Acute) Epigastric discomfort (Acute) Multiple lipomas (Acute) Major depression, recurrent (Acute) Blurring, bilateral (Acute) Bereavement counseling (Acute) Grieving (Acute) Stress (Acute) Uncontrolled hypertension (Acute) History of hysterectomy for benign disease (Acute) Breast screening (Acute) Tobacco abuse (Acute) Obesity due to excess calories (Acute) Encounter for general adult medical examination with abnormal findings (Acute) Malfunction of continuous positive airway pressure (CPAP) or bilevel positive airway pressure (BPAP) machine (Acute) POLINA on CPAP (Acute) Obesity (BMI 35.0-39.9 without comorbidity) (Acute) Sleep apnea (Acute) Anxiety, generalized (Acute) Osteoarthritis, knee (Acute) Hypertension, essential (Acute) Periodic limb movement disorder (Acute) Past Medical History Medical History Malfunction of continuous positive airway pressure (CPAP) or bilevel positive airway pressure (BPAP) machine POLINA on CPAP Obesity (BMI 35.0-39.9 without comorbidity) Anxiety, generalized Osteoarthritis, knee Hypertension, essential Periodic limb movement disorder Family History Family History Father No problems noted. Mother No problems noted. Brother No problems noted. Brother No problems noted. Brother No problems noted. Son No problems noted. Son No problems noted. Other Mental health disorder Surgical History Surgical History History of hysterectomy with bilateral oophorectomy History of section Social History Social History (Updated 05/05/24 @ 14:29 by Aishwarya Rudd RN) Housing: House Are you a primary youth care professional to a significant other at home: No Do you presently have visiting nurse or other home services: No Alcohol intake: never Patient Tobacco Use Status: Current everyday Tobacco user Tobacco use type: Cigarette Cigarettes Per Day: 6 Years Smoked: 30 e-Cigarette/Vaping Use: Never Used Use of substances other than those prescribed or required for medical reasons: No Have you been hit, kicked, punched, or otherwise hurt by someone within the past year? If so, by whom?: No Are you DNR?: No Recently lost weight without trying: No Nutrition Risks: No Nutritional Risk Poor oral hygiene: No Current occupational status: unemployed Cognitive needs: No Hearing needs: No Vision needs: No Meds Allergies Allergy/AdvReac Type Severity Reaction Status Date / Time No Known Allergies Allergy Verified 05/05/24 14:30 Home Medications ?Medication ?Instructions ?Recorded ?Confirmed ?Last Taken ?Type semaglutide (weight loss) 1 mg/0.5 1 mg subcut .QWEDN05/05/24 05/05/24 04/29/24 History mL subcutaneous pen injector semaglutide (weight loss) 1 mg/0.5 1 mg subcut QWEEK 05/06/24 Unknown History mL subcutaneous pen injector (Wegovy) Exam Height,Weight and Vital Signs: Height 5 ft 2 in Weight 80.286 kg Assessment and Plan Assessment Anesthesia Assessment: Chart Reviewed
[2024-05-07 10:39] VITALS: BP 127/63; PULSE 62; RESP 16; TEMP 36.7; O2SAT 94; BMI 32.7
[2024-05-07] MEDS: Lactated Ringers 1,000 ML 100 ML IVCONT (11:01)
--- NOTE | 2024-05-07 12:22 | HO.ANESPROP2 ---
[facility] Active Problems Active Problems: All Active Problems Sebaceous cyst (Acute) Dermoid cyst of skin of back (Acute) Neck pain (Acute) Shoulder pain, left (Acute) Colon cancer screening (Acute) Skin cancer screening (Acute) Epigastric discomfort (Acute) Multiple lipomas (Acute) Major depression, recurrent (Acute) Blurring, bilateral (Acute) Bereavement counseling (Acute) Grieving (Acute) Stress (Acute) Uncontrolled hypertension (Acute) History of hysterectomy for benign disease (Acute) Breast screening (Acute) Tobacco abuse (Acute) Obesity due to excess calories (Acute) Encounter for general adult medical examination with abnormal findings (Acute) Malfunction of continuous positive airway pressure (CPAP) or bilevel positive airway pressure (BPAP) machine (Acute) POLINA on CPAP (Acute) Obesity (BMI 35.0-39.9 without comorbidity) (Acute) Sleep apnea (Acute) Anxiety, generalized (Acute) Osteoarthritis, knee (Acute) Hypertension, essential (Acute) Periodic limb movement disorder (Acute) Past Medical History Medical History Malfunction of continuous positive airway pressure (CPAP) or bilevel positive airway pressure (BPAP) machine POLINA on CPAP Obesity (BMI 35.0-39.9 without comorbidity) Anxiety, generalized Osteoarthritis, knee Hypertension, essential Periodic limb movement disorder Functional capacity: independent ambulation Patient : No Family History Family History Father No problems noted. Mother No problems noted. Brother No problems noted. Brother No problems noted. Brother No problems noted. Son No problems noted. Son No problems noted. Other Mental health disorder Family history of problems with anesthesia: No Surgical History Surgical History History of hysterectomy with bilateral oophorectomy History of section History of Problems with Anesthesia: No Social History Social History Housing: House Are you a primary primary care coordinator to a significant other at home: No Do you presently have visiting nurse or other home services: No Alcohol intake: never Patient Tobacco Use Status: Current everyday Tobacco user Tobacco use type: Cigarette Cigarettes Per Day: 6 Years Smoked: 30 e-Cigarette/Vaping Use: Never Used Use of substances other than those prescribed or required for medical reasons: No Have you been hit, kicked, punched, or otherwise hurt by someone within the past year? If so, by whom?: No Are you DNR?: No Advance Directives: No Advance Directives Information Provided: Yes Recently lost weight without trying: No Nutrition Risks: No Nutritional Risk Poor oral hygiene: No Current occupational status: unemployed Cognitive needs: No Hearing needs: No Vision needs: No Meds Allergies Allergy/AdvReac Type Severity Reaction Status Date / Time No Known Allergies Allergy Verified 05/07/24 10:34 Active Medications: Current Medications Lactated Ringer's (Lr) 1,000 mls @ 100 mls/hr IVCONT .Q10H EVERARDO Last Admin: 05/07/24 11:01 Dose: 100 mls/hr Home Medications ?Medication ?Instructions ?Recorded ?Confirmed ?Last Taken ?Type semaglutide (weight loss) 1 mg/0.5 1 mg subcut .QWEDNESDAY 05/05/24 05/07/24 04/29/24 History mL subcutaneous pen injector Exam Height,Weight and Vital Signs: Height 5 ft 2 in Weight 81 kg Last Vital Signs Temp 98.1 F 05/07/24 10:39 Pulse 62 05/07/24 10:39 Resp 16 05/07/24 10:39 BP 127/63 05/07/24 10:39 Pulse Ox 94 05/07/24 10:39 O2 Del Method Room Air 05/07/24 10:39 Airway Mallampati Class: III TM Dist: >3cm Neck ROM: Full Heart: RRR Lungs: CTA Assessment and Plan Assessment Anesthesia Assessment: Anesthesia Plan Discussed and Chart Reviewed Final Anesthetic Review Family History of Problems with Anesthesia: No History of Problems with Anesthesia: No NPO: Yes ASA Class: III Final Preanesthetic Review: Meds/Allgs Chart Reviewed, Consent Obtained/Reviewed and Anes Risks/Benef Reviewed Patient Risk: Intermediate Procedure Risk: Low Anesthetic Plan Anesthetic Plan: MAC: Disposition: Standard PACU
[2024-05-07 12:47] VITALS: BP 127/73; PULSE 68; RESP 16; TEMP 36.8; O2SAT 95
[2024-05-07 12:52] VITALS: BP 127/74; PULSE 69; RESP 16; O2SAT 93
[2024-05-07 12:57] VITALS: BP 130/79; PULSE 60; RESP 16; O2SAT 95
--- NOTE | 2024-05-07 12:59 | W.PM.OPN ---
Operative Note Operative Note Date of Service: 05/07/24 Narrative: Preoperative diagnosis: [] Upper and lower back large symptomatic enlarging sebaceous cyst Postop diagnosis: [] The same Procedure [] excision large sebaceous cyst x2; upper and lower back Surgeon: [] [employer] Fab[employer]ator: [] Ari Type of Anesthesia: [] Mac Indication for surgery: [] Upper mid back sebaceous cyst measured roughly 7 x 5 cm. Lower back mass measured roughly 5 x 5 cm Findings: [] Patient brought to the operating room, placed on operative table supine position, after an adequate level of MAC anesthesia was induced, patient was placed in the right lateral decubitus position. Back was prepped and draped in usual sterile fashion. Each cyst was approached using a transverse by elliptical incision encompassing the punctum were superior and inferior skin flaps were developed and circumferentially dissection of the multilobulated respective large sebaceous cysts was performed using combination of sharp, and Bovie dissection. Each specimen separately sent to pathology. Each wound was irrigated, secured hemostasis, and closed using interrupted inverted dermal 3-0 Vicryl sutures followed by Steri-Strips and sterile dressings. Each wound was infiltrated at the beginning at the end with 1% lidocaine and 0.5% Marcaine. Sponge, needle, and instrument counts were reported correct. Patient tolerated the procedure well and emerged from anesthesia stable condition. EBL minimal
[2024-05-07 13:03] VITALS: BP 118/75; PULSE 56; RESP 16; O2SAT 95
[2024-05-07 13:17] VITALS: BP 151/93; PULSE 61; RESP 16; TEMP 36.6; O2SAT 95
--- NOTE | 2024-05-07 14:26 | HO.POSTANES ---
Post Anesthesia Evaluation Post Anesthesia Evaluation Date of Service: 05/07/24 Vital Signs: Vital Signs Temp Pulse Resp BP Pulse Ox O2 Del Method 05/07/24 13:17 97.9 F 61 16 151/93 H 95 Room Air 05/07/24 13:03 56 16 118/75 95 Room Air 05/07/24 12:57 60 16 130/79 95 Room Air 05/07/24 12:52 69 16 127/74 93 Room Air 05/07/24 12:47 98.2 F 68 16 127/73 95 Room Air 05/07/24 10:39 98.1 F 62 16 127/63 94 Room Air Anesthesia: Monitored Mental Status: Awake Pain Control: Satisfactory Nausea/Vomiting: None Hydration: Adequate Anesthesia-Related Issues: No Anes. Related Issues
== END 2024-05-07 13:51 | disposition home or self-care (01) ==
PROVIDERS: PCP Internal Medicine; Visit Provider Surgery
PROC: (CPT 11406; principal; 2024-05-07 12:30)
DX: L72.3 Sebaceous cyst (principal); I10 Essential (primary) hypertension; G47.33 Obstructive sleep apnea (adult) (pediatric); E66.9 Obesity, unspecified; F41.1 Generalized anxiety disorder; Z79.899 Other long term (current) drug therapy; Z99.89 Dependence on other enabling machines and devices; Z98.890 Other specified postprocedural states; F17.210 Nicotine dependence, cigarettes, uncomplicated; Z56.0 Unemployment, unspecified
CPT/HCPCS: 11406 ×2; 88304; J0690; J1100; J2003; J2250; J2704; J2795; J3010

== ENCOUNTER → 2024-05-07 09:53 | Outpatient (BNV) | payer OTHER, SELFPAY | PROVIDERS: PCP Internal Medicine; Visit Provider Surgery | DX: L72.0 Epidermal cyst (principal) | CPT/HCPCS: 11406 ==

== ENCOUNTER 2024-05-08 09:18 | Outpatient (AMB) | payer OTHER, SELFPAY ==
--- NOTE | 2024-05-08 09:19 | A.OFFPC_ITS ---
Vital Signs 05/08/24 09:21 Height 5 ft 2 in Weight 180 lb BMI 32.9 BP 124/70 Blood Pressure Location Rt brachial Position Sitting Respiration 16 Pulse 81 Pulse Source Pulse Oximeter Temp 98.0 F Temp Source Oral Pulse Oximetry (%) 98 Oxygen Delivery Method Room Air Intake Visit Reasons: 2 month follow up Allergies No Known Allergies Allergy (Verified 05/08/24 09:25) Medication List - Last Reconciled 05/08/24 by Norbert Reddy MD amlodipine 10 mg PO DAILY [Bp Monitor As directed] clonazepam 0.5 mg PO BEDTIME 90 days cyclobenzaprine 5 mg PO BEDTIME losartan 50 mg PO BID 90 days oxycodone 5 mg PO Q4-6H PRN semaglutide (weight loss) 1.7 mg (0.75 mL) subcut .QWEDNESDAY 90 days sertraline 100 mg PO DAILY 90 days Tobacco use date assessed: 05/08/24 Dental Screening Dental Screen Date: 03/19/24 HPI 2 month follow up HPI Details Patient is 64-year-old female came in today for regular follow-up appointment Had surgery for dermoid cyst upper back yesterday and has appointment with the surgeon coming up on of this month Cervicalgia off and on with spasm, taking cyclobenzaprine as needed Hypertension: Patient is currently taking 3 medications amlodipine 10 mg, atenolol 50 mg, and losartan 50 mg b.i.d. her blood pressure is stable. Tolerating medications Anxiety and depression stable with sertraline 100 mg, patient also take clonazepam 0.5 mg at night for periodic leg movement disorder She also have a sleep apnea sees Dr. Caban for the management Patient is on Wegovy injections for weight loss, tolerating medication , strength increase to 1.7 mg for next 3 months Labs due next visit Review of Systems - General: No fever no chills - Neurological: No headaches no dizziness - Ear nose throat: No sore throat no hearing difficulty no ear pain - Cardiovascular: No syncope, no chest pain, no palpitations - Gastrointestinal: No nausea vomiting or diarrhea - Endocrine: No polyuria polydipsia no heat intolerance - Genitourinary: No dysuria , no blood in urine Physical Exam General: No acute distress HEENT: Tongue appears white, no acute findings Neck: Supple Respiratory system: Able to talk in full sentences, no audible wheeze cardiovascular: S1-S2 regular in rate and rhythm Gastrointestinal: No pain Extremities: No new findings PASSENGER RELATIONS REPRESENTATIVE: Alert awake oriented x3 motor sensory intact Skin: Normal turgor [facility] Medical History Malfunction of continuous positive airway pressure (CPAP) or bilevel positive airway pressure (BPAP) machine POLINA on CPAP Obesity (BMI 35.0-39.9 without comorbidity) Anxiety, generalized Osteoarthritis, knee Hypertension, essential Periodic limb movement disorder Surgical History History of hysterectomy with bilateral oophorectomy History of section Family History Father No problems noted. Mother No problems noted. Brother No problems noted. Brother No problems noted. Brother No problems noted. Son No problems noted. Son No problems noted. Other Mental health disorder Social History Housing: House Are you a primary professional healthcare representative to a significant other at home: No Do you presently have visiting nurse or other home services: No Alcohol intake: never Comment: counts correct Patient Tobacco Use Status: Current everyday Tobacco user Tobacco use type: Cigarette Cigarettes Per Day: 6 Years Smoked: 30 e-Cigarette/Vaping Use: Never Used Current occupational status: unemployed Cognitive needs: No Hearing needs: No Vision needs: No Questionnaire Thrive Questionnaire Date Thrive assessed: 03/19/24 LYNNE-7 AMB Questionnaire LYNNE-7 Date LYNNE - 7 assessed: 03/19/24 Source: Developed by Drs. Reji Gimenez, Kina Patel, Rodolfo Mosley and colleagues, with an educational lamar from [employer]. Physical exam (Primary Care) Vital Signs: Last Vital Signs Temp 98.0 F 05/08/24 09:21 Pulse 81 05/08/24 09:21 Resp 16 05/08/24 09:21 BP 124/70 05/08/24 09:21 Pulse Ox 98 05/08/24 09:21 Oxygen Delivery Method Room Air 05/08/24 09:21 BMI result Body Mass Index 32.9 Tobacco/Smoking Status: Tobacco use Status Tobacco use date assessed 05/08/24 05/08/24 09:25 Patient Tobacco Use Status Current everyday Tobacco 05/08/24 09:21 Tobacco use type Cigarette 05/08/24 09:21 e-Cigarette/Vaping Use Never Used 05/08/24 09:21 Thrive Assessment: Date of Thrive Assessment Date Thrive assessed 03/19/24 05/08/24 09:21 Coding Level of Care Code Est Pt Level 4 (39600) Diagnoses Hypertension, essential I10 Periodic limb movement disorder G47.61 Anxiety, generalized F41.1 Obstructive sleep apnea syndrome G47.33 Sleep apnea type: obstructive Class 2 severe obesity due to excess calories with serious comorbidity and body mass index (BMI) of 37.0 to 37.9 in adult E66.01; Z68.37 Obesity classification: adult class 2 (BMI 35 - 39.9) Serious obesity comorbidity presence: with serious comorbidity Body mass index: BMI 37.0-37.9 Recurrent major depressive disorder, in partial remission F33.41 Active/Remission status: in partial remission Neck pain M54.2 LFT elevation R79.89 Assessment & Plan Assessment & Plan (1) Hypertension, essential: Code(s): I10 - Essential (primary) hypertension Category: Medical (2) Periodic limb movement disorder: Code(s): G47.61 - Periodic limb movement disorder Category: Medical (3) Anxiety, generalized: Code(s): F41.1 - Generalized anxiety disorder Category: Medical (4) Sleep apnea: Code(s): G47.30 - Sleep apnea, unspecified Category: Medical Qualifiers: Sleep apnea type: obstructive Qualified Code(s): G47.33 - Obstructive sleep apnea (adult) (pediatric) (5) Obesity due to excess calories: Code(s): E66.09 - Other obesity due to excess calories Category: Medical Qualifiers: Obesity classification: adult class 2 (BMI 35 - 39.9) Serious obesity comorbidity presence: with serious comorbidity Body mass index: BMI 37.0-37.9 Qualified Code(s): E66.01 - Morbid (severe) obesity due to excess calories; Z68.37 - Body mass index [BMI] 37.0-37.9, adult (6) Major depression, recurrent: Code(s): F33.9 - Major depressive disorder, recurrent, unspecified Category: Medical Qualifiers: Active/Remission status: in partial remission Qualified Code(s): F33.41 - Major depressive disorder, recurrent, in partial remission (7) Neck pain: Code(s): M54.2 - Cervicalgia Category: Medical (8) LFT elevation: Code(s): R79.89 - Other specified abnormal findings of blood chemistry Category: Medical Plan Patient is 64-year-old female came in today for regular follow-up appointment Had surgery for dermoid cyst upper back yesterday and has appointment with the surgeon coming up on of this month Cervicalgia off and on with spasm, taking cyclobenzaprine as needed Hypertension: Patient is currently taking 3 medications amlodipine 10 mg, atenolol 50 mg, and losartan 50 mg b.i.d. her blood pressure is stable. Tolera ting medications Anxiety and depression stable with sertraline 100 mg, patient also take clonazepam 0.5 mg at night for periodic leg movement disorder She also have a sleep apnea sees Dr. Caban for the management Patient is on Wegovy injections for weight loss, tolerating medication , strength increase to 1.7 mg for next 3 months Labs due next visit Orders: Orders Hemoglobin A1c Today E66.01 - Morbid (severe) obesity due to excess calories, F33.41 - Major depressive disorder, recurrent, in partial remission, F41.1 - Generalized anxiety disorder, G47.33 - Obstructive sleep apnea (adult) (pediatric), G47.61 - Periodic limb movement disorder, I10 - Essential (primary) hypertension, M54.2 - Cervicalgia, R79.89 - Other specified abnormal findings of blood chemistry, Z68.37 - Body mass index [BMI] 37.0-37.9, adult Complete Blood Count Auto Diff Today E66.01 - Morbid (severe) obesity due to excess calories, F33.41 - Major depressive disorder, recurrent, in partial remission, F41.1 - Generalized anxiety disorder, G47.33 - Obstructive sleep apnea (adult) (pediatric), G47.61 - Periodic limb movement disorder, I10 - Essential (primary) hypertension, M54.2 - Cervicalgia, R79.89 - Other specified abnormal findings of blood chemistry, Z68.37 - Body mass index [BMI] 37.0-37.9, adult Comprehensive Met. Panel Today E66.01 - Morbid (severe) obesity due to excess calories, F33.41 - Major depressive disorder, recurrent, in partial remission, F41.1 - Generalized anxiety disorder, G47.33 - Obstructive sleep apnea (adult) (pediatric), G47.61 - Periodic limb movement disorder, I10 - Essential (primary) hypertension, M54.2 - Cervicalgia, R79.89 - Other specified abnormal findings of blood chemistry, Z68.37 - Body mass index [BMI] 37.0-37.9, adult Medications: Changed From semaglutide (weight loss) administer weeks 1 through 4 of therapy 1 mg subcut .QWEDNESDAY To semaglutide (weight loss) administer weeks 1 through 4 of therapy 1.7 mg (0.75 mL) subcut .QWEDNESDAY 90 days 3 mL 0RF Refilled clonazepam 0.5 mg PO BEDTIME 90 days 90 tabs 0RF
[2024-05-08 09:21] VITALS: BP 124/70; PULSE 81; RESP 16; TEMP 36.7; O2SAT 98; BMI 32.9
--- OUTSIDE RECORDS SUMMARY | 2024-05-08 10:05 | XMS_ITS | Encounter Summary ---
Author Organization [employer] Address [address] [place] [id number] Care Team Providers Care Manager Infrastructure Name Role Phone Unavailable Primary Care Provider Unavailabl e Encounter Details Date Type Department Care Team (Latest Contact Info) Description 10/12/2021 Abstract [facility] CONVERSIONS Dental, Provider, DDS Social History [...]
--- OUTSIDE RECORDS SUMMARY | 2024-05-08 10:05 | XMS_ITS | Encounter Summary ---
Author Organization [employer] Address [address] [place] [address] Care Team Providers Care Manager Pipeline Name Role Phone Unavailable Primary Care Provider Unavailabl e Encounter Details Date Type Department Care Team (Latest Contact Info) Description 08/20/2018 Abstract [facility] CONVERSIONS Dental, Provider, DDS Social History Tobacco [...]
--- OUTSIDE RECORDS SUMMARY | 2024-05-08 10:05 | XMS_ITS | Clinical Summary ---
Author Organization [employer] Address [address] [place] [address] [address] [place] [address] Care Team Providers Care Wrapper Counter Name Role Phone Unavailable Primary Care Provider [...] Sodium Fluoride 1.1 % creamIndications:De ntin hypersensitivity [place] teeth for 2 minutes, morning and night. [...]
--- OUTSIDE RECORDS SUMMARY | 2024-05-08 10:05 | XMS_ITS | Encounter Summary ---
Author Organization [employer] Address [address] [place] [address] Care Team Providers Care Corporate Responsibility Officer Name Role Phone Unavailable Primary Care Provider Unavailabl e Encounter Details Date Type Department Care Team (Latest Contact Info) Description 11/14/2020 Abstract [facility] CONVERSIONS Dental, Provider, DDS Social History [...]
== END 2024-05-08 10:02 | disposition home or self-care (01) ==
PROVIDERS: PCP Internal Medicine; Visit Provider Internal Medicine
DX: I10 Essential (primary) hypertension (principal); E66.01 Morbid (severe) obesity due to excess calories; F33.41 Major depressive disorder, recurrent, in partial remission; Z68.37 Body mass index [BMI] 37.0-37.9, adult; F41.1 Generalized anxiety disorder; G47.61 Periodic limb movement disorder; G47.33 Obstructive sleep apnea (adult) (pediatric); M54.2 Cervicalgia; R79.89 Other specified abnormal findings of blood chemistry

== ENCOUNTER → 2024-05-08 09:18 | Outpatient (BNVA) | payer OTHER, SELFPAY | PROVIDERS: PCP Internal Medicine; Visit Provider Internal Medicine | DX: F41.1 Generalized anxiety disorder (principal); I10 Essential (primary) hypertension; G47.61 Periodic limb movement disorder; M17.0 Bilateral primary osteoarthritis of knee; G47.33 Obstructive sleep apnea (adult) (pediatric); E66.01 Morbid (severe) obesity due to excess calories; Z68.37 Body mass index [BMI] 37.0-37.9, adult; M25.512 Pain in left shoulder; M54.2 Cervicalgia; D23.5 Other benign neoplasm of skin of trunk | CPT/HCPCS: 99212 ==

== ENCOUNTER → 2024-05-14 14:16 | Outpatient (BNVA) | payer OTHER, SELFPAY | PROVIDERS: PCP Internal Medicine; Visit Provider Surgery | DX: Z09 Encounter for follow-up examination after completed treatment for conditions other than malignant neoplasm (principal); Z98.890 Other specified postprocedural states | CPT/HCPCS: 99211 ==

== ENCOUNTER 2024-05-15 11:48 | Outpatient (AMB) | payer OTHER, SELFPAY ==
--- NOTE | 2024-05-15 11:53 | AM.OFFWIN_ITS ---
Intake Vital Signs 05/15/24 11:57 Weight 183 lb BP 120/76 Blood Pressure Location Rt brachial Position Sitting Pulse 71 Pulse Source Pulse Oximeter Pulse Oximetry (%) 94 Oxygen Delivery Method Room Air Intake Visit Reasons: EP Bandage/wound check Intake Note: Patient here to have wound on upper back checked to ensure it is healing correctly. Patient Tobacco Use Status: Current everyday Tobacco user Allergies No Known Allergies Allergy (Verified 05/15/24 11:58) Do you need a note to return to daycare/school/sports/work: No HPI HPI Comments History of Present Illness Details History of Present Illness - The patient is a 64-year-old female pr esenting for a wound check after the surgical drainage of 2 cysts, one on her mid upper back and one on her low mid back. - The procedure occurred a week ago in [facility], involving cyst drainage. - There was instruction for daily dressi ng changes, recently confirmed through another healthcare visit. - No antibiotic regimen is currently in place. - A follow-up with Dr. Reddy was suppos ed to happen in 1 week, she is here today for it. Physical Exam General: Cooperative, healthy appearing, comfortable, no acute distress and well developed Orientation: Patient oriented x3 Limitations: No limitations Head: Normal to inspection Ears: Hearing grossly normal bilaterally Nose: Normal external nose present Face and sinus: Normal facial exam Eyes: Appearance normal, both eyes and all related structures Neck: Normal visual inspection and Yes full ROM Respiratory: Normal respiratory effort and able to speak in complete sentences. Skin: steri strips are clean dry and intact on her mid lower back, no surrounding erythema, no surrounding warmth. Removed bandage from the upper mid back wound, minimal blood, no warmth or purulent drainage noted. Neuro: Patient oriented x3 Extremities: Normal to inspection [facility] Medical History Malfunction of continuous positive airway pressure (CPAP) or bilevel positive airway pressure (BPAP) machine [place] on CPAP Obesity (BMI 35.0-39.9 without comorbidity) Anxiety, generalized Osteoarthritis, knee Hypertension, essential Periodic limb movement disorder Surgical History History of hysterectomy with bilateral oophorectomy History of section Family History Father No problems noted. Mother No problems noted. Brother No problems noted. Brother No problems noted. Brother No problems noted. Son No problems noted. Son No problems noted. Other Mental health disorder Social History Housing: House Are you a primary direct care worker to a significant other at home: No Do you presently have visiting nurse or other home services: No Alcohol intake: never Comment: counts correct Patient Tobacco Use Status: Current everyday Tobacco user Tobacco use type: Cigarette Cigarettes Per Day: 6 Years Smoked: 30 e-Cigarette/Vaping Use: Never Used Current occupational status: unemployed Cognitive needs: No Hearing needs: No Vision needs: No Review of Systems Const All systems reviewed & are unremarkable except as noted in HPI and below Physical Exam Vital Signs: Last Vital Signs Pulse 71 05/15/24 11:57 BP 120/76 05/15/24 11:57 Pulse Ox 94 05/15/24 11:57 Oxygen Delivery Method Room Air 05/15/24 11:57 Assessment & Plan Assessment & Plan (1) Wound check, abscess: Code(s): Z51.89 - Encounter for other specified aftercare Plan: For the mid lower back wound, kept CDI Steri-Strips in place, recommended she let them fall off on their own as they are clearly not ready but there is no signs of infection. For the mid upper back incision, cleaned with an alcohol wipe, applied a bacitracin and a large bandage. Advised if any fevers, purulent drainage, pain or warmth occurs, she should return to the clinic. Coding Level of Care Code Est Pt Level 3 (43765) Diagnoses Wound check, abscess Z51.89
[2024-05-15 11:57] VITALS: BP 120/76; PULSE 71; O2SAT 94
--- OUTSIDE RECORDS SUMMARY | 2024-05-15 13:37 | XMS_ITS | Encounter Summary ---
Author Organization [employer] Address [address] [place] [address] Care Team Providers Care Weigh Box Tender Name Role Phone Unavailable Primary Care Provider Unavailabl e Encounter Details Date Type Department Care Team (Latest Contact Info) Description 10/12/2021 Abstract [facility] CONVERSIONS Dental, Provider, DDS Social History [...]
--- OUTSIDE RECORDS SUMMARY | 2024-05-15 13:37 | XMS_ITS | Encounter Summary ---
Author Organization [employer] Address [address] [place] [address] Care Team Providers Care Associate Professor Of Theology Name Role Phone Unavailable Primary Care Provider Unavailabl e Encounter Details Date Type Department Care Team (Latest Contact Info) Description 11/14/2020 Abstract [facility] CONVERSIONS Dental, Provider, DDS Social History Tobacco [...]
--- OUTSIDE RECORDS SUMMARY | 2024-05-15 13:37 | XMS_ITS | Encounter Summary ---
Author Organization [employer] Address [address] [place] [address] Care Team Providers Care Data Entry Supervisor Name Role Phone Unavailable Primary Care Provider Unavailabl e Encounter Details Date Type Department Care Team (Latest Contact Info) Description 08/20/2018 Abstract [facility] CONVERSIONS Dental, Provider, DDS Social History [...]
--- OUTSIDE RECORDS SUMMARY | 2024-05-15 13:37 | XMS_ITS | Clinical Summary ---
Author Organization [employer] Address [address] [place] [address] [address] [place] [address] Care Team Providers Care Case Assembler Name Role Phone Unavailable Primary Care Provider [...] Sodium Fluoride 1.1 % creamIndications:De ntin hypersensitivity [place] teeth for 2 minutes, morning and night. [...]
== END 2024-05-15 12:21 | disposition home or self-care (01) ==
PROVIDERS: PCP Internal Medicine; Visit Provider Physician Assistant
DX: Z51.89 Encounter for other specified aftercare (principal)

== ENCOUNTER → 2024-05-15 11:48 | Outpatient (BNVA) | payer OTHER, SELFPAY | PROVIDERS: PCP Internal Medicine; Visit Provider Physician Assistant | DX: S30.91XD Unspecified superficial injury of lower back and pelvis, subsequent encounter (principal); Z51.89 Encounter for other specified aftercare | CPT/HCPCS: 99212 ==

== ENCOUNTER 2024-05-19 11:26 | Outpatient (AMB) | payer OTHER, SELFPAY ==
--- NOTE | 2024-05-19 11:26 | A.OFFVIS_ITS ---
Intake Visit Reasons: S/P WLE large back mass x2 Intake Note: Patient here s/p excision large sebaceous cyst x2; upper and lower back. Reports incisions healing well. Patient c/o: spouse reports no concerns. Bandage change daily. Denies pain to site. WLE: 05-07-2024 Furniture Mover Helper Required: No Accompanied by: Self / Same As Patient Allergies No Known Allergies Allergy (Verified 05/19/24 11:29) HPI Comments Details: Patient presents for follow-up status post excision upper lower back large sebaceous cyst. She has minimal incisional discomfort. Otherwise doing well. Pathology is benign [facility] Medical History Malfunction of continuous positive airway pressure (CPAP) or bilevel positive airway pressure (BPAP) machine [place] on CPAP Obesity (BMI 35.0-39.9 without comorbidity) Anxiety, generalized Osteoarthritis, knee Hypertension, essential Periodic limb movement disorder Surgical History History of hysterectomy with bilateral oophorectomy History of section Family History Father No problems noted. Mother No problems noted. Brother No problems noted. Brother No problems noted. Brother No problems noted. Son No problems noted. Son No problems noted. Other Mental health disorder Social History Housing: House Are you a primary managed care specialist to a significant other at home: No Do you presently have visiting nurse or other home services: No Alcohol intake: never Comment: counts correct Patient Tobacco Use Status: Current everyday Tobacco user Tobacco use type: Cigarette Cigarettes Per Day: 6 Years Smoked: 30 e-Cigarette/Vaping Use: Never Used Current occupational status: unemployed Cognitive needs: No Hearing needs: No Vision needs: No Physical Exam Back/Spine/Pelvis Other: Lower incision healing very well. Upper incision is healing well but has a seroma/hematoma which attempted aspiration had minimal output but dressing applied. Assessment & Plan Assessment & Plan (1) Encounter for postoperative wound check: Code(s): Z48.89 - Encounter for other specified surgical aftercare Category: Surgical Plan Patient was been given local instructions and will see me in 1 week's time for follow-up or p.r.n.. All questions answered Coding Level of Care Code Global (90382) Diagnoses Encounter for postoperative wound check Z48.89
--- OUTSIDE RECORDS SUMMARY | 2024-05-19 13:58 | XMS_ITS | Encounter Summary ---
Author Organization [employer] Address [address] [place] [address] Care Team Providers Care Sprayer Insecticide Name Role Phone Unavailable Primary Care Provider Unavailabl e Encounter Details Date Type Department Care Team (Latest Contact Info) Description 11/14/2020 Abstract [facility] CONVERSIONS Dental, Provider, DDS Social History [...]
--- OUTSIDE RECORDS SUMMARY | 2024-05-19 13:58 | XMS_ITS | Encounter Summary ---
Author Organization [employer] Address [address] [place] [address] Care Team Providers Care Plastic Technician Name Role Phone Unavailable Primary Care Provider Unavailabl e Encounter Details Date Type Department Care Team (Latest Contact Info) Description 10/12/[address] [facility] CONVERSIONS Dental, Provider, DDS Social History [...]
--- OUTSIDE RECORDS SUMMARY | 2024-05-19 13:58 | XMS_ITS | Clinical Summary ---
Author Organization [employer] Address [address] [place] [address] 7 [place] [address] Care Team Providers Care Packer Name Role Phone Unavailable Primary Care Provider [...] Sodium Fluoride 1.1 % creamIndications:De ntin hypersensitivity [place] teeth for 2 minutes, morning and night. [...]
--- OUTSIDE RECORDS SUMMARY | 2024-05-19 13:58 | XMS_ITS | Encounter Summary ---
Author Organization [email or web address] Address [address] [place] [address] Care Team Providers Care Dealership Manager Name Role Phone Unavailable Primary Care Provider Unavailabl e Encounter Details Date Type Department Care Team (Latest Contact Info) Description 08/20/2018 Abstract [facility] CONVERSIONS Dental, Provider, DDS Social History [...]
== END 2024-05-19 11:44 | disposition home or self-care (01) ==
LOC: HO.HGS 11:26
PROVIDERS: PCP Internal Medicine; Visit Provider Surgery
DX: Z48.89 Encounter for other specified surgical aftercare (principal)
CPT/HCPCS: 99024

== ENCOUNTER → 2024-05-19 11:26 | Outpatient (BNVA) | payer OTHER, SELFPAY | PROVIDERS: PCP Internal Medicine; Visit Provider Surgery | DX: Z48.817 Encounter for surgical aftercare following surgery on the skin and subcutaneous tissue (principal); Z98.890 Other specified postprocedural states | CPT/HCPCS: 99212 ==

== ENCOUNTER 2024-05-26 10:52 | Outpatient (AMB) | payer OTHER, SELFPAY ==
--- NOTE | 2024-05-26 10:54 | A.OFFVIS_ITS ---
Vital Signs 05/26/24 10:55 Height 5 ft 2 in Weight 178 lb 9.191 oz BMI 32.7 Intake Visit Reasons: 1 wek follow up S/P WLE large back mass x2 Intake Note: 1 week follow-up S/P WLE large back mass x2 feeling good Boiler Plant Operator Required: No Allergies No Known Allergies Allergy (Verified 05/19/24 11:29) HPI Comments Details: Patient presents for follow-up status post upper and lower back sebaceous cyst excisions. Upper 1 had a seroma which she says has markedly improved regarding her symptoms. [facility] Medical History Malfunction of continuous positive airway pressure (CPAP) or bilevel positive airway pressure (BPAP) machine [place] on CPAP Obesity (BMI 35.0-39.9 without comorbidity) Anxiety, generalized Osteoarthritis, knee Hypertension, essential Periodic limb movement disorder Surgical History History of hysterectomy with bilateral oophorectomy History of section Family History Father No problems noted. Mother No problems noted. Brother No problems noted. Brother No problems noted. Brother No problems noted. Son No problems noted. Son No problems noted. Other Mental health disorder Social History Housing: House Are you a primary critical care specialist to a significant other at home: No Do you presently have visiting nurse or other home services: No Alcohol intake: never Comment: counts correct Patient Tobacco Use Status: Current everyday Tobacco user Tobacco use type: Cigarette Cigarettes Per Day: 6 Years Smoked: 30 e-Cigarette/Vaping Use: Never Used Current occupational status: unemployed Cognitive needs: No Hearing needs: No Vision needs: No Physical Exam Vital Signs: BMI result Body Mass Index 32.7 Back/Spine/Pelvis Other: Lower incision clean dry and intact. Upper incision is intact with significant decrease in seroma size. Assessment & Plan Assessment & Plan (1) Encounter for wound re-check: Code(s): Z51.89 - Encounter for other specified aftercare Category: Surgical Plan At present, continue conservative therapy. No need for aspiration at this time. Patient was given local instructions and will otherwise follow-up p.r.n.. All questions answered. Coding Level of Care Code Global (45793) Diagnoses Encounter for wound re-check Z51.89
[2024-05-26 10:55] VITALS: BMI 32.7
--- OUTSIDE RECORDS SUMMARY | 2024-05-26 13:16 | XMS_ITS | Encounter Summary ---
Author Organization [employer] Address [address] [place] [address] Care Team Providers Care [employer] Maintenance Worker Name Role Phone Unavailable Primary Care Provider Unavailabl e Encounter Details Date Type Department Care Team (Latest Contact Info) Description 11/14/2020 Abstract [facility] CONVERSIONS Dental, Provider, DDS Social History [...]
--- OUTSIDE RECORDS SUMMARY | 2024-05-26 13:16 | XMS_ITS | Encounter Summary ---
Author Organization [employer] Address [address] [place] [address] Care Team Providers Care Merchandise Flow Manager Name Role Phone Unavailable Primary Care Provider Unavailabl e Encounter Details Date Type Department Care Team (Latest Contact Info) Description 08/20/2018 Abstract [facility] CONVERSIONS Dental, Provider, DDS Social History [...]
--- OUTSIDE RECORDS SUMMARY | 2024-05-26 13:16 | XMS_ITS | Clinical Summary ---
Author Organization [employer] Address [address] [place] [address] [address] [place] [address] Care Team Providers Care Policy Writer Name Role Phone Unavailable Primary Care Provider [...] Sodium Fluoride 1.1 % creamIndications:De ntin hypersensitivity [place] teeth for 2 minutes, morning and night. [...]
--- OUTSIDE RECORDS SUMMARY | 2024-05-26 13:16 | XMS_ITS | Encounter Summary ---
Author Organization [employer] Address [address] [place] [address] Care Team Providers Care Lumber Estimator Name Role Phone Unavailable Primary Care Provider Unavailabl e Encounter Details Date Type Department Care Team (Latest Contact Info) Description 10/12/2021 Abstract [facility] CONVERSIONS Dental, Provider, DDS Social [...]
== END 2024-05-26 11:38 | disposition home or self-care (01) ==
LOC: HO.HGS 10:53
PROVIDERS: PCP Internal Medicine; Visit Provider Surgery
DX: Z51.89 Encounter for other specified aftercare (principal)
CPT/HCPCS: 99024

== ENCOUNTER → 2024-05-26 10:52 | Outpatient (BNVA) | payer OTHER, SELFPAY | PROVIDERS: PCP Internal Medicine; Visit Provider Surgery | DX: Z09 Encounter for follow-up examination after completed treatment for conditions other than malignant neoplasm (principal); Z87.2 Personal history of diseases of the skin and subcutaneous tissue; Z98.890 Other specified postprocedural states | CPT/HCPCS: 99212 ==

== ENCOUNTER 2024-07-24 08:16 | Outpatient (AMB) | payer OTHER, SELFPAY ==
[2024-07-24 08:20] VITALS: BP 126/74; PULSE 76; O2SAT 95; BMI 32.0
--- NOTE | 2024-07-24 08:20 | A.OFFPC_ITS ---
Vital Signs 07/24/24 08:20 Height 5 ft 2 in Weight 175 lb BMI 32.0 BP 126/74 Blood Pressure Location Rt brachial Position Sitting Pulse 76 Pulse Source Pulse Oximeter Pulse Oximetry (%) 95 Oxygen Delivery Method Room Air Intake Visit Reasons: 11 week follow up Mass Spectroscopist Required: No Accompanied by: Self / Same As Patient Allergies No Known Allergies Allergy (Verified 07/24/24 08:20) Medication List - Last Reconciled 07/24/24 by Norbert Reddy MD amlodipine 10 mg PO DAILY [Bp Monitor As directed] clonazepam 0.5 mg PO BEDTIME 90 days cyclobenzaprine 5 mg PO BEDTIME losartan 50 mg PO BID 90 days omeprazole 20 mg PO DAILY semaglutide (weight loss) 1.7 mg (0.75 mL) subcut .QWEDNESDAY 90 days sertraline 100 mg PO DAILY 90 days Tobacco use date assessed: 05/08/24 Dental Screening Dental Screen Date: 03/19/24 HPI 11 week follow up HPI Details History - The patient is a 64-year-old female pr esenting with concerns regarding pharmacy and medication refill issues, wheezing, and medication management. - Semaglutide prescriptions have been se nt for three-month quantities, but the pharmacy provides monthly refills; patient advised to discuss this with the pharmacy for clarification. - Patient has a known history of smoking for approximately 30 years, currently smoking 5-6 cigarettes a day; she reports wheezing but denies shortness of breath, suggesting a possible relation to long-term smoking. - Reports taking clonazepam, losartan, a mlodipine, omeprazole, sertraline, and semaglutide; - Blood tests were done in March; advi sed to repeat in August for regular monitoring. - The patient has a scheduled physical e xamination for September 29. Problem List - Semaglutide management - Wheezing with a history of smoking - Anxiety - Hypertension - Gastroesophageal reflux disease (GERD) Patient Instructions - Talk to the pharmacy about why medicat ions are filled every month instead of every three months. - If experiencing difficulty in breathin g or shortness of breath when climbing stairs or walking, contact the doctor immediately. - Consider reaching out to dermatology f or skin cancer screening - Reduce cigarette use, aiming to quit s moking for improved lung health. I have ordered pulmonary function test for you - Ensure to have blood tests repeated in August as discussed. - Continue taking current medications as prescribed. - Follow diet and lifestyle modification s discussed for weight management until the goal is achieved. Review of Systems - General: No fever no chills - Neurological: No headaches no dizziness - Ear nose throat: No sore throat no hearing difficulty no ear pain - Cardiovascular: No syncope, no chest pain, no palpitations - Gastrointestinal: No nausea vomiting or diarrhea - Endocrine: No polyuria polydipsia no heat intolerance - Genitourinary: No dysuria , no blood in urine Physical Exam General: No acute distress HEENT: No acute findings Neck: Supple Respiratory system: Able to talk in full sentences, slight wheezing noted Cardiovascular: S1-S2 regular in rate and rhythm Gastrointestinal: No pain Extremities: No new findings POWERHOUSE HELPER: Alert awake oriented x3 motor sensory intact Skin: Normal turgor [facility] Medical History Malfunction of continuous positive airway pressure (CPAP) or bilevel positive airway pressure (BPAP) machine [place] on CPAP Obesity (BMI 35.0-39.9 without comorbidity) Anxiety, generalized Osteoarthritis, knee Hypertension, essential Periodic limb movement disorder Surgical History History of hysterectomy with bilateral oophorectomy History of section Family History Father No problems noted. Mother No problems noted. Brother No problems noted. Brother No problems noted. Brother No problems noted. Son No problems noted. Son No problems noted. Other Mental health disorder Social History Housing: House Are you a primary career services coordinator to a significant other at home: No Do you presently have visiting nurse or other home services: No Alcohol intake: never Comment: counts correct Patient Tobacco Use Status: Current everyday Tobacco user Tobacco use type: Cigarette Cigarettes Per Day: 6 Years Smoked: 30 Packs per year/per ci.00 e-Cigarette/Vaping Use: Never Used Current occupational status: unemployed Cognitive needs: No Hearing needs: No Vision needs: No Questionnaire Thrive Questionnaire Date Thrive assessed: 03/19/24 LYNNE-7 AMB Questionnaire LYNNE-7 Date LYNNE - 7 assessed: 03/19/24 Source: Developed by Drs. Reji Gimenez, Kina Patel, Rodolfo Mosley and colleagues, with an educational lamar from [employer]. Physical exam (Primary Care) Vital Signs: Last Vital Signs Pulse 76 07/24/24 08:20 BP 126/74 07/24/24 08:20 Pulse Ox 95 07/24/24 08:20 Oxygen Delivery Method Room Air 07/24/24 08:20 BMI result Body Mass Index 32.0 Tobacco/Smoking Status: Tobacco use Status Tobacco use date assessed 05/08/24 07/24/24 08:23 Patient Tobacco Use Status Current everyday Tobacco 07/24/24 08:23 Tobacco use type Cigarette 07/24/24 08:23 e-Cigarette/Vaping Use Never Used 07/24/24 08:23 Thrive Assessment: Date of Thrive Assessment Date Thrive assessed 03/19/24 07/24/24 08:23 Coding Level of Care Code Est Pt Level 4 (96046) Diagnoses Wheezing R06.2 Smoker F17.200 Hypertension, essential I10 Periodic limb movement disorder G47.61 Anxiety, generalized F41.1 Obstructive sleep apnea syndrome G47.33 Sleep apnea type: obstructive Class 2 severe obesity due to excess calories with serious comorbidity and body mass index (BMI) of 37.0 to 37.9 in adult E66.01; Z68.37 Obesity classification: adult class 2 (BMI 35 - 39.9) Serious obesity comorbidity presence: with serious comorbidity Body mass index: BMI 37.0-37.9 Recurrent major depressive disorder, in partial remission F33.41 Active/Remission status: in partial remission Neck pain M54.2 LFT elevation R79.89 Skin cancer screening Z12.83 Assessment & Plan Assessment & Plan (1) Wheezing: Code(s): R06.2 - Wheezing Category: Medical (2) Smoker: Code(s): F17.200 - Nicotine dependence, unspecified, uncomplicated Category: Social Hx (3) Hypertension, essential: Code(s): I10 - Essential (primary) hypertension Category: Medical (4) Periodic limb movement disorder: Code(s): G47.61 - Periodic limb movement disorder Category: Medical (5) Anxiety, generalized: Code(s): F41.1 - Generalized anxiety disorder Category: Medical (6) Sleep apnea: Code(s): G47.30 - Sleep apnea, unspecified Category: Medical Qualifiers: Sleep apnea type: obstructive Qualified Code(s): G47.33 - Obstructive sleep apnea (adult) (pediatric) (7) Obesity due to excess calories: Code(s): E66.09 - Other obesity due to excess calories Category: Medical Qualifiers: Obesity classification: adult class 2 (BMI 35 - 39.9) Serious obesity comorbidity presence: with serious comorbidity Body mass index: BMI 37.0-37.9 Qualified Code(s): E66.01 - Morbid (severe) obesity due to excess calories; Z68.37 - Body mass index [BMI] 37.0-37.9, adult (8) Major depression, recurrent: Code(s): F33.9 - Major depressive disorder, recurrent, unspecified Category: Medical Qualifiers: Active/Remission status: in partial remission Qualified Code(s): F33.41 - Major depressive disorder, recurrent, in partial remission (9) Neck pain: Code(s): M54.2 - Cervicalgia Category: Medical (10) LFT elevation: Code(s): R79.89 - Other specified abnormal findings of blood chemistry Category: Medical (11) Skin cancer screening: Code(s): Z12.83 - Encounter for screening for malignant neoplasm of skin Category: Medical Plan History - The patient is a 64-year-old female presenting with concerns regarding pharmacy and medication refill issues, wheezing, and medication management. - Semaglutide prescriptions have been sent for three-month quantities, but the pharmacy provides monthly refills; patient advised to discuss this with the pharmacy for clarification. - Patient has a known history of smoking for approximately 30 years, currently smoking 5-6 cigarettes a day; she reports wheezing but denies shortness of breath, suggesting a possible relation to long-term smoking. - Reports taking clonazepam, losartan, amlodipine, omeprazole, sertraline, and semaglutide; - Blood tests were done in March; advised to repeat in August for regular monitoring. - The patient has a scheduled physical examination for September 29. Problem List - Semaglutide management - Wheezing with a history of smoking - Anxiety - periodic leg movement disorder - Hypertension - Gastroesophageal reflux disease (GERD) Patient Instructions - Talk to the pharmacy about why medications are filled every month instead of every three months. - If experiencing difficulty in breathing or shortness of breath when climbing stairs or walking, contact the doctor immediately. - Consider reaching out to dermatology for skin cancer screening - Reduce cigarette use, aiming to quit smoking for improved lung health. I have ordered pulmonary function test for you - Ensure to have blood tests repeated in August as discussed. - Continue taking current medications as prescribed. - Follow diet and lifestyle modifications discussed for weight management until the goal is achieved. Orders: Orders PFT pulmonary function test Today F17.200 - Nicotine dependence, unspecified, uncomplicated, R06.2 - Wheezing Referrals Dermatology Referral Z12.83 - Encounter for screening for malignant neoplasm of skin Medications: Refilled semaglutide (weight loss) administer weeks 1 through 4 of therapy 1.7 mg (0.75 mL) subcut .QWEDNESDAY 3 mL 2RF 90 days clonazepam 0.5 mg PO BEDTIME 90 tabs 0RF 90 days losartan 50 mg PO BID 180 tabs 0RF 90 days
== END 2024-07-24 08:42 | disposition home or self-care (01) ==
LOC: HO.HMCC 08:17
PROVIDERS: PCP Internal Medicine; Visit Provider Internal Medicine
DX: R06.2 Wheezing (principal); F17.200 Nicotine dependence, unspecified, uncomplicated; E66.01 Morbid (severe) obesity due to excess calories; Z68.37 Body mass index [BMI] 37.0-37.9, adult; I10 Essential (primary) hypertension; G47.61 Periodic limb movement disorder; F41.1 Generalized anxiety disorder; G47.33 Obstructive sleep apnea (adult) (pediatric); F33.41 Major depressive disorder, recurrent, in partial remission; M54.2 Cervicalgia; R79.89 Other specified abnormal findings of blood chemistry; Z12.83 Encounter for screening for malignant neoplasm of skin

== ENCOUNTER 2024-07-24 08:16 | Outpatient (REF) | payer OTHER, SELFPAY ==
[2024-07-24 10:00] LABS: MANUAL DIFF FLAG NO
[2024-07-24 10:10] LABS: Basophils Percent Auto 0.3 % (0-2); Eosinophils Absolute Auto 0.2 X10*3/uL (0.0-0.4); Hematocrit 40.5 % (37.0-47.0); Hemoglobin 13.2 g/dl (12.0-16.0); Imm Gran Abs Auto 0.02 X10*3/uL (0.00-0.03); Imm Gran Pct Auto 0.2 % (0.0-0.4); Lymphocytes Absolute Auto 2.6 X10*3/uL (1.2-4.9); Mean Corpuscular HGB Conc 32.6 g/dl (31.0-35.0); Mean Corpuscular Hemoglobin 29.3 pg (27.0-33.0); Mean Corpuscular Volume 89.8 fL (80.0-98.0); Mean Platelet Volume 10.2 fL (9.4-12.3); Monocytes Absolute Auto 0.6 X10*3/uL (0.1-1.2); Monocytes Percent Auto 5.7 % (2-11); Neutrophils Absolute Auto 6.4 x10*3/uL (2.0-8.3); Neutrophils Percent Auto 65.8 % (45-73); Platelet Count 274 X10*3/uL (160-400); Red Blood Count 4.51 X10*6/uL (4.20-5.50); Red Cell Distribution Width 13.6 % (11.0-16.0); White Blood Count 9.8 X10*3/uL (4.8-10.8)
[2024-07-24 10:14] LABS: Estimated Average Glucose 111 mg/dL; Hemoglobin A1C 126.7777 umol/L; Hemoglobin A1c % 5.5 % (<6.0); Total Hemoglobin (HGBA1C) 3476.0062 umol/L
[2024-07-24 10:53] LABS: Alanine Aminotransferase 18 U/L (0-31); Albumin Level 4.2 g/dL (3.5-5.0); Alkaline Phosphatase 133 U/L (39-117); Anion Gap 12 (12-20); Aspartate Amino Transferase 23 U/L (5-31); Bilirubin Total 0.3 mg/dL (0.0-1.0); Blood Urea Nitrogen 15 mg/dL (9-16); Calcium 9.5 mg/dL (8.4-10.2); Carbon Dioxide 24 mmol/L (22-29); Chloride 109 mmol/L (96-108); Estimated Glomerular Filt Rate > 60; Glucose Random 109 mg/dL (60-115); Potassium 3.7 mmol/L (3.3-5.1); Sodium 141 mmol/L (135-145); Total Protein 7.2 g/dL (6.5-8.0)
== END 2024-07-24 08:17 | disposition home or self-care (01) ==
LOC: HO.HMGCLDS 08:16
PROVIDERS: PCP Internal Medicine; Visit Provider Internal Medicine
DX: R06.2 Wheezing (principal); I10 Essential (primary) hypertension; G47.61 Periodic limb movement disorder; F41.1 Generalized anxiety disorder; G47.33 Obstructive sleep apnea (adult) (pediatric); E66.01 Morbid (severe) obesity due to excess calories; Z68.37 Body mass index [BMI] 37.0-37.9, adult; F33.41 Major depressive disorder, recurrent, in partial remission; M54.2 Cervicalgia; R79.89 Other specified abnormal findings of blood chemistry; F17.200 Nicotine dependence, unspecified, uncomplicated; Z79.899 Other long term (current) drug therapy
CPT/HCPCS: 36415; 80053; 83036; 85025; 99212

== ENCOUNTER 2024-10-07 10:47 | Outpatient (AMB) | payer OTHER, SELFPAY ==
--- NOTE | 2024-10-07 10:55 | MHC.OFFVIS ---
Vital Signs 10/07/24 10:56 Height 5 ft 2 in Weight 173 lb BMI 31.6 BP 130/74 Blood Pressure Location Lt brachial Position Sitting Pulse 71 Pulse Source Pulse Oximeter Pulse Oximetry (%) 96 Oxygen Delivery Method Room Air Intake Visit Reasons: fang Intake Note: pt is here for follow up and states she is doing well. Direct Sales Professional Required: No Allergies No Known Allergies Allergy (Verified 10/07/24 10:58) [facility] Medical History Malfunction of continuous positive airway pressure (CPAP) or bilevel positive airway pressure (BPAP) machine FANG on CPAP Obesity (BMI 35.0-39.9 without comorbidity) Anxiety, generalized Osteoarthritis, knee Hypertension, essential Periodic limb movement disorder Surgical History History of hysterectomy with bilateral oophorectomy History of section Family History Father No problems noted. Mother No problems noted. Brother No problems noted. Brother No problems noted. Brother No problems noted. Son No problems noted. Son No problems noted. Other Mental health disorder Social History (Reviewed 10/07/24 @ 10:59 by Aishwarya Lou COUNTS INCLUDE 234 BEDS AT THE [facility]) Housing: House Are you a primary animal caregiver to a significant other at home: No Do you presently have visiting nurse or other home services: No Alcohol intake: never Comment: counts correct Patient Tobacco Use Status: Current everyday Tobacco user Tobacco use type: Cigarette Cigarettes Per Day: 6 Years Smoked: 30 e-Cigarette/Vaping Use: Never Used Current occupational status: unemployed Cognitive needs: No Hearing needs: No Vision needs: No Coding
[2024-10-07 10:56] VITALS: BP 130/74; PULSE 71; O2SAT 96; BMI 31.6
--- NOTE | 2024-10-07 10:58 | A.OFFVIS_ITS ---
Vital Signs 10/07/24 10:56 Height 5 ft 2 in Weight 173 lb BMI 31.6 BP 130/74 Blood Pressure Location Lt brachial Position Sitting Pulse 71 Pulse Source Pulse Oximeter Pulse Oximetry (%) 96 Oxygen Delivery Method Room Air Intake Visit Reasons: fang Allergies No Known Allergies Allergy (Verified 10/07/24 11:09) Medication List - Last Reconciled 10/07/24 by Marcella Caban MD amlodipine 10 mg PO DAILY [Bp Monitor As directed] clonazepam 0.5 mg PO BEDTIME 90 days cyclobenzaprine 5 mg PO BEDTIME losartan 50 mg PO BID 90 days omeprazole 20 mg PO DAILY semaglutide (weight loss) 1.7 mg (0.75 mL) subcut .QWEDNESDAY 90 days sertraline 100 mg PO DAILY 90 days HPI HPI fang: Details: 64 YEARS OLD FEMALE MODERATELY OBESE, CASE OF OBSTRUCTIVE SLEEP APNEA,, USES CPAP REGULARLY BUT HAS NOT BEEN ABLE TO GET SUPPLIES FOR THE LAST 6 MONTHS. SHE HAS BEEN USING NASAL MASK, WAKES UP IN THE MORNING WITH A DRY MOUTH AND COATED TONGUE, IN SPITE OF USING THE HUMIDIFICATION. 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 SHE IS VERY COMPLIANT, AND ACTUALLY WITHOUT THE USE OF CPAP SHE HAS HARD TIME TO SLEEP. HAS BEEN A SMOKER FOR THE LAST 30 YEARS AND NOW CUT DOWN TO 6 CIGARETTES A DAY. DENIES COUGH OR WHEEZING. FORMERLY [facility] Medical History Malfunction of continuous positive airway pressure (CPAP) or bilevel positive airway pressure (BPAP) machine FANG on CPAP Obesity (BMI 35.0-39.9 without comorbidity) Anxiety, generalized Osteoarthritis, knee Hypertension, essential Periodic limb movement disorder Surgical History History of hysterectomy with bilateral oophorectomy History of section Family History Father No problems noted. Mother No problems noted. Brother No problems noted. Brother No problems noted. Brother No problems noted. Son No problems noted. Son No problems noted. Other Mental health disorder Social History Housing: House Are you a primary caregiver services home to a significant other at home: No Do you presently have visiting nurse or other home services: No Alcohol intake: never Comment: counts correct Patient Tobacco Use Status: Current everyday Tobacco user Tobacco use type: Cigarette Cigarettes Per Day: 6 Years Smoked: 30 e-Cigarette/Vaping Use: Never Used Current occupational status: unemployed Cognitive needs: No Hearing needs: No Vision needs: No Review of Systems Const All systems reviewed & are unremarkable except as noted in HPI and below ENT Reports nasal congestion (MILD OFF AND ON ) Card Denies chest pain, Denies leg edema and Denies dyspnea on exertion Resp Denies cough, Denies dyspnea on exertion and Denies wheezing GI Reports no additional complaints Musc Reports no additional complaints Neuro Reports no additional complaints Psych Reports anxiety and Reports depression (TREATED WITH MEDS) Endo Reports no additional complaints Aller/Immun Denies wheezing Physical Exam Vital Signs: Last Vital Signs Pulse 71 10/07/24 10:56 BP 130/74 10/07/24 10:56 Pulse Ox 96 10/07/24 10:56 Oxygen Delivery Method Room Air 10/07/24 10:56 BMI result Body Mass Index 31.6 Const General: healthy appearing (EXCEPT FOR BEING OBESE .), comfortable, no acute distress, alert and awake Orientation/consciousness: patient oriented x3 HEENT Head: Yes normal to inspection General nose exam: No nasal polyps present and No nasal discharge present Face and sinus: Yes sinuses nontender Mouth: oropharynx abnormals (VERY CROWDED AND NARROW, MALLAMPATI CLASS FOUR) and tongue abnormal (SHE DOES HAVE WHITE AND WITH YELLOWISH SPOTS, COATING ON THE TONGUE.) Throat: Yes posterior oropharynx normal Eyes General: appearance normal, both eyes and all related structures Neck Neck: Yes normal visual inspection, Yes no lymphadenopathy, Yes trachea midline and Yes no JVD Thyroid: Thyroid normal Chest Chest palpation & inspection: normal inspection of the chest, normal palpation of entire chest wall and no tenderness Resp Effort & Inspection: normal respiratory effort Auscultation: clear to auscultation bilaterally, no rhonchi and no wheezes Cardio Palpation: normal PMI Rate: regular rate Rhythm: regular rhythm Heart sounds: no gallops and no murmurs GI Palpation (GI): Soft to palpation, nontender, No hepatosplenomegaly present and no masses Auscultation: normal bowel sounds Back/Spine/Pelvis Thoracic/Lumbar Spine: thoracic and lumbar spine normal to inspection Skin General skin exam: no rashes or lesions noted Neuro General: patient oriented x3 and no focal motor deficits Cranial nerves: Yes CN's II-XII intact bilaterally Extrem General: Yes normal to inspection, Yes no clubbing, cyanosis or edema and Yes no calf tenderness Psych Appearance: grossly normal and well kempt Speech and movement: Normal speech and movement present Results Reviewed Results Reviewed: COMPLIANCE REPORT FOR THE LAST 30 NIGHTS IS REVIEWED. SHE HAS USED 30/30 NIGHTS., 100% AVERAGE USAGE PER NIGHT 9 HOURS 32 MINUTES. PRESSURE SETTING, CPAP=12 CMs . THERE IS A MINIMAL DEGREE OF AIR LEAK. RESIDUAL AHI ONLY 0.6 Assessment & Plan Assessment & Plan (1) FANG on CPAP: Comment: SHE HAS BEEN ON CPAP, SINCE 2013. HAS BEEN VERY COMPLIANT AND BENEFITTING. NOW WITH THE NEW CPAP MACHINE SHE FEELS MUCH BETTER. The new nasal mask, is not fitting her well, and there seems to be some air leak at night. 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 Code(s): G47.33 - Obstructive sleep apnea (adult) (pediatric); Z99.89 - Dependence on other enabling machines and devices Category: Medical Plan: I THINK SHE SHOULD TRY TO USE A FULLFACE MASK . AFIT-40 MASK IS ORDERED CONTINUE TO USE HEATED HUMIDIFICATION. MAY DO MOUTH WASHES WITH LISTERINE PLUS WATER HALF AND HAVE 2 OR 3 TIMES A DAY. SHE WOULD ALSO NEED TO STOP SMOKING BECAUSE SMOKING MAY BE CONTRIBUTING TO HER YELLOWISH STAINS ON THE TONGUE. (2) Obesity (BMI 35.0-39.9 without comorbidity): Comment: SHE HAS BEEN MODERATELY OBESE ALL ALONG, ADVISED THAT SHE SHOULD TRY TO LOSE ABOUT 10-15 LB OF WEIGHT. DISCUSSED ABOUT DIET AND REDUCING CALORIES INTAKE . CURRENTLY SHE HAS ALSO BEEN STARTED ON SEMAGLUTIDE INJECTIONS, AND IS STARTING TO LOSE WEIGHT Code(s): E66.9 - Obesity, unspecified Category: Medical Plan: ENCOURAGED TO KEEP ON LOSING WEIGHT SLOWLY . (3) Smoker: Comment: SHE HAS A LONGSTANDING HISTORY OF SMOKING, CLAIMS THAT SHE IS SMOKING NO MORE THAN 5 OR 6 CIGARETTES A DAY. Code(s): F17.200 - Nicotine dependence, unspecified, uncomplicated Category: Social Hx Plan: I DISCUSSED WITH HER THE RISKS OF CONTINUED SMOKING. ENCOURAGED HER TO QUIT COMPLETELY OR AT LEAST CUT DOWN TO ONLY A FEW CIGARETTES PER DAY. Coding Level of Care Code Est Pt Level 3 (67253) Diagnoses FANG on CPAP G47.33; Z99.89 Obesity (BMI 35.0-39.9 without comorbidity) E66.9 Smoker F17.200
--- OUTSIDE RECORDS SUMMARY | 2024-10-07 11:30 | XMS_ITS | Clinical Summary ---
Author Organization [employer] Address [address] [place] [address] Care Team Providers Care Algologist Name Role Phone Unavailable Primary Care Provider [...] Sodium Fluoride 1.1 % creamIndications:De ntin hypersensitivity Clutier teeth for 2 minutes, morning and night. [...] Panel 1962 SDOH Screening 1962 Sigmoidoscopy 1962 Disability Screening 1962 Alcohol/Substance Use Screening 1974 Hepatitis C [...] 03/29/2024 09/26/2023 Dental X-Ray: Bitewings 09/26/2024 09/26/2023 Influenza Vaccine (#1) 2024 , 02/21/2022, 11/22/2021, Additional history exists Tobacco Screening 01/01/2025 01/02/2024 Dental X-Ray: Full Mouth 09/26/2026 09/26/2023 RSV Patients and Patients Aged 60 years or older (1 - 1-dose 75+ series) 2037 HIB Vaccines Aged Out No longer eligi [...] patient's age to complete this topic Meningococcal B Vaccine Aged Out No l onger eligible based on patient's age to complete [...]
--- OUTSIDE RECORDS SUMMARY | 2024-10-07 11:30 | XMS_ITS | Patient Health Record ---
[facility] Address [address] [place] [address] Care Team Providers Care Camera Engineer Name Role Phone [facility] Primary Care Provider Latisha Dao Unavailable [phone] Reason For Referral No Information Medications Medication SIG (Take, Route, Fr equency, Duration) Notes Start Date End Date Status Calcium Active ibuprofen Active Losartan Potassium A ctive Sertraline HCl Activ e Problems No Known Problems Plan Of Treatment Pending Test Test Name Order Date [id number] Destruction, -01/13/2015 [id number] Destruction, 03-1702/03/2015 Insurance Providers Payer Name Payer Address Payer Phone Subscriber Number Group Number Insured Name Patient Relationship to Insured Coverage Start Date Coverage End Date [facility] [address] [facility] [id number] [employer] Spouse - patient is the spouse of the insured Medical (General) History Medical History History ICD Code Anxiety Back,Hip,and Knee pain Chicken pox Measles Hypertension Surgical History Surgery Date(Month/Year) section x2 ovarian surgery
--- OUTSIDE RECORDS SUMMARY | 2024-10-07 11:30 | XMS_ITS | Patient Health Record ---
Author Organization [facility] Address [address] [place] [address] Care Team Providers Care Cat Sitter Name Role Phone Barry HOUSE, Asma Primary Care Provider Reji Malone [phone] Reason For Referral No Information Medications Medication SIG (Take, Route, Frequency, Duration) Notes Start Date End Date Status Dulcolax (colon prep) 5 MG take at 3:00 p.m and 7:00p.m. Orally two tablets twice a day for one day for 1 day 04/04/2017 Active Calcium 200 MG 1 tablet with meals Orally Once a day Active MiraLax (colon prep) 8.3 ounce ((238) grams mixed with Gatorade or Crystal Light orally begin at 5:00 p.m. the day before the procedure for 1 day 04/04/2017 Active Ibuprofen 200 MG 1 tablet with food o r milk as needed Orally as needed Activ e Sertraline HCl 25 MG TAKE 1 TABLET BY MO UTH EVERY DAY Oral for 30 Active Losartan Potassium 50 MG TAKE 1 TABLET B Y MOUTH EVERY DAY Oral for 30 Active Social History Tobacco Use: Social History Observation Description Date Details (start date - stop date) Current Smoker NA - NA Tobacco Use/Smoking Question Answer Notes Patient is a current smoker How often do you smoke cigarettes? every day How many cigarettes a day do you smoke? 5 or les s How soon after you wake up do you smoke your fir st cigarette? after 60 minutes Are you interested in quitting? Not ready to thomas t Section Notes: Came from [place] in 2012 Smoke 3-4 cigs QD, no sig alcohol Problems Problem Type SNOMED Code ICD Code Onset Dates Problem Status W/U Status Risk Notes Problem [id number] Encounter for screening for malignant neoplasm of colon (Z12.11) Active confirmed Problem [id number] Preprocedural examination (Z01.818) Active confirmed Plan Of Treatment Pending Test Test Name Order Date GI BIOPSY 07/17/2017 Future Test Test Name Order Date COLONOSCOPY 04/04/2017 Insurance Providers Payer Name Payer Address Payer Phone Subscriber Number Group Number Insured Name Patient Relationship to Insured Coverage Start Date Coverage End Date [facility] [address] [address] [place], [place] [phone] [id number] ARA MATTHEWS Self - patient is the insured MEDICAID OF [employer] [address] [place] [address] [phone] [id number] ARA MATTHEWS Self - patient is the insured Medical (General) History Medical History History ICD Code Hypertension Denies VA,DM,CVA,Lung disease,renal dise ase Arthritis in knees Anxiety Sleep apnea--uses CPAP Surgical History Surgery Date(Month/Year) 1988,1990 [facility]
--- NOTE | 2024-10-07 11:38 | MHC.OFFVIS ---
Vital Signs 10/07/24 10:56 Height 5 ft 2 in Weight 173 lb BMI 31.6 BP 130/74 Blood Pressure Location Lt brachial Position Sitting Pulse 71 Pulse Source Pulse Oximeter Pulse Oximetry (%) 96 Oxygen Delivery Method Room Air Intake Visit Reasons: Obstructive sleep apnea Allergies No Known Allergies Allergy (Verified 10/07/24 11:09) Medication List - Last Reconciled 10/07/24 by Marcella Caban MD amlodipine 10 mg PO DAILY [Bp Monitor As directed] clonazepam 0.5 mg PO BEDTIME 90 days cyclobenzaprine 5 mg PO BEDTIME losartan 50 mg PO BID 90 days omeprazole 20 mg PO DAILY semaglutide (weight loss) 1.7 mg (0.75 mL) subcut .QWEDNDAY 90 days sertraline 100 mg PO DAILY 90 days [facility] Medical History Malfunction of continuous positive airway pressure (CPAP) or bilevel positive airway pressure (BPAP) machine POLINA on CPAP Obesity (BMI 35.0-39.9 without comorbidity) Anxiety, generalized Osteoarthritis, knee Hypertension, essential Periodic limb movement disorder Surgical History History of hysterectomy with bilateral oophorectomy History of section Family History Father No problems noted. Mother No problems noted. Brother No problems noted. Brother No problems noted. Brother No problems noted. Son No problems noted. Son No problems noted. Other Mental health disorder Social History Housing: House Are you a primary director of career services to a significant other at home: No Do you presently have visiting nurse or other home services: No Alcohol intake: never Comment: counts correct Patient Tobacco Use Status: Current everyday Tobacco user Tobacco use type: Cigarette Cigarettes Per Day: 6 Years Smoked: 30 e-Cigarette/Vaping Use: Never Used Current occupational status: unemployed Cognitive needs: No Hearing needs: No Vision needs: No Physical Exam Vital Signs: Last Vital Signs Pulse 71 10/07/24 10:56 BP 130/74 10/07/24 10:56 Pulse Ox 96 10/07/24 10:56 Oxygen Delivery Method Room Air 10/07/24 10:56 BMI result Body Mass Index 31.6 Assessment & Plan Assessment & Plan (1) POLINA on CPAP: Comment: SHE HAS BEEN ON CPAP, SINCE 2013. HAS BEEN VERY COMPLIANT AND BENEFITTING. NOW WITH THE NEW CPAP MACHINE SHE FEELS MUCH BETTER. The new nasal mask, is not fitting her well, and there seems to be some air leak at night. 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 Code(s): G47.33 - Obstructive sleep apnea (adult) (pediatric); Z99.89 - Dependence on other enabling machines and devices Category: Medical (2) Obesity (BMI 35.0-39.9 without comorbidity): Comment: SHE HAS BEEN MODERATELY OBESE ALL ALONG, ADVISED THAT SHE SHOULD TRY TO LOSE ABOUT 10-15 LB OF WEIGHT. DISCUSSED ABOUT DIET AND REDUCING CALORIES INTAKE . CURRENTLY SHE HAS ALSO BEEN STARTED ON SEMAGLUTIDE INJECTIONS, AND IS STARTING TO LOSE WEIGHT Code(s): E66.9 - Obesity, unspecified Category: Medical (3) Smoker: Comment: SHE HAS A LONGSTANDING HISTORY OF SMOKING, CLAIMS THAT SHE IS SMOKING NO MORE THAN 5 OR 6 CIGARETTES A DAY. Code(s): F17.200 - Nicotine dependence, unspecified, uncomplicated Category: Social Hx Coding Level of Care Code Est Pt Level 3 (82344) Diagnoses POLINA on CPAP G47.33; Z99.89 Obesity (BMI 35.0-39.9 without comorbidity) E66.9 Smoker F17.200
--- NOTE | 2024-10-07 11:40 | MHC.OFFVIS ---
Vital Signs 10/07/24 10:56 Height 5 ft 2 in Weight 173 lb BMI 31.6 BP 130/74 Blood Pressure Location Lt brachial Position Sitting Pulse 71 Pulse Source Pulse Oximeter Pulse Oximetry (%) 96 Oxygen Delivery Method Room Air Intake Visit Reasons: Obstructive sleep apnea Allergies No Known Allergies Allergy (Verified 10/07/24 11:09) Medication List - Last Reconciled 10/07/24 by Marcella Caban MD amlodipine 10 mg PO DAILY [Bp Monitor As directed] clonazepam 0.5 mg PO BEDTIME 90 days cyclobenzaprine 5 mg PO BEDTIME losartan 50 mg PO BID 90 days omeprazole 20 mg PO DAILY semaglutide (weight loss) 1.7 mg (0.75 mL) subcut .QWEDNDAY 90 days sertraline 100 mg PO DAILY 90 days [facility] Medical History Malfunction of continuous positive airway pressure (CPAP) or bilevel positive airway pressure (BPAP) machine POLINA on CPAP Obesity (BMI 35.0-39.9 without comorbidity) Anxiety, generalized Osteoarthritis, knee Hypertension, essential Periodic limb movement disorder Surgical History History of hysterectomy with bilateral oophorectomy History of section Family History Father No problems noted. Mother No problems noted. Brother No problems noted. Brother No problems noted. Brother No problems noted. Son No problems noted. Son No problems noted. Other Mental health disorder Social History Housing: House Are you a primary landcare officer to a significant other at home: No Do you presently have visiting nurse or other home services: No Alcohol intake: never Comment: counts correct Patient Tobacco Use Status: Current everyday Tobacco user Tobacco use type: Cigarette Cigarettes Per Day: 6 Years Smoked: 30 e-Cigarette/Vaping Use: Never Used Current occupational status: unemployed Cognitive needs: No Hearing needs: No Vision needs: No Physical Exam Vital Signs: Last Vital Signs Pulse 71 10/07/24 10:56 BP 130/74 10/07/24 10:56 Pulse Ox 96 10/07/24 10:56 Oxygen Delivery Method Room Air 10/07/24 10:56 BMI result Body Mass Index 31.6 Assessment & Plan Assessment & Plan (1) POLINA on CPAP: Comment: SHE HAS BEEN ON CPAP, SINCE 2013. HAS BEEN VERY COMPLIANT AND BENEFITTING. NOW WITH THE NEW CPAP MACHINE SHE FEELS MUCH BETTER. The new nasal mask, is not fitting her well, and there seems to be some air leak at night. 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 Code(s): G47.33 - Obstructive sleep apnea (adult) (pediatric); Z99.89 - Dependence on other enabling machines and devices Category: Medical Plan: FULLFACE MASK RESMED F-40 IS THE ORDERED (2) Obesity (BMI 35.0-39.9 without comorbidity): Comment: SHE HAS BEEN MODERATELY OBESE ALL ALONG, ADVISED THAT SHE SHOULD TRY TO LOSE ABOUT 10-15 LB OF WEIGHT. DISCUSSED ABOUT DIET AND REDUCING CALORIES INTAKE . CURRENTLY SHE HAS ALSO BEEN STARTED ON SEMAGLUTIDE INJECTIONS, AND IS STARTING TO LOSE WEIGHT Code(s): E66.9 - Obesity, unspecified Category: Medical Plan: ENCOURAGED TO KEEP ON LOSING WEIGHT (3) Smoker: Comment: SHE HAS A LONGSTANDING HISTORY OF SMOKING, CLAIMS THAT SHE IS SMOKING NO MORE THAN 5 OR 6 CIGARETTES A DAY. Code(s): F17.200 - Nicotine dependence, unspecified, uncomplicated Category: Social Hx Plan: DISCUSSED ABOUT LONG-TERM RISKS FROM CONTINUED SMOKING. ENCOURAGED TO STOP SMOKING COMPLETELY OR AT LEAST CUT DOWN TO JUST 1 OR. 2 CIGARETTES A DAY Coding Level of Care Code Est Pt Level 3 (23164) Diagnoses POLINA on CPAP G47.33; Z99.89 Obesity (BMI 35.0-39.9 without comorbidity) E66.9 Smoker F17.200
== END 2024-10-07 11:18 | disposition home or self-care (01) ==
PROVIDERS: PCP Internal Medicine; Visit Provider Internal Medicine
DX: G47.33 Obstructive sleep apnea (adult) (pediatric) (principal); Z99.89 Dependence on other enabling machines and devices; E66.9 Obesity, unspecified; F17.200 Nicotine dependence, unspecified, uncomplicated
CPT/HCPCS: 99213; 99499

== ENCOUNTER → 2024-10-07 10:47 | Outpatient (BNVA) | payer OTHER, SELFPAY | PROVIDERS: Visit Provider Internal Medicine | DX: G47.33 Obstructive sleep apnea (adult) (pediatric) (principal); E66.9 Obesity, unspecified; F17.210 Nicotine dependence, cigarettes, uncomplicated; Z68.31 Body mass index [BMI] 31.0-31.9, adult; Z99.89 Dependence on other enabling machines and devices | CPT/HCPCS: 99212 ==

== ENCOUNTER 2024-10-14 12:09 | Outpatient (AMB) | payer OTHER, SELFPAY ==
--- NOTE | 2024-10-14 12:12 | A.OFFPC_ITS ---
Vital Signs 10/14/24 12:16 Height 5 ft 2 in Weight 174 lb BMI 31.8 BP 116/70 Blood Pressure Location Lt brachial Position Sitting Pulse 72 Pulse Source Pulse Oximeter Pulse Oximetry (%) 96 Intake Visit Reasons: Follow up Allergies No Known Allergies Allergy (Verified 10/14/24 12:17) Medication List - Last Reconciled 10/14/24 by Norbert Reddy MD amlodipine 10 mg PO DAILY [Bp Monitor As directed] clonazepam 0.5 mg PO BEDTIME 90 days cyclobenzaprine 5 mg PO BEDTIME losartan 50 mg PO BID 90 days omeprazole 20 mg PO DAILY semaglutide (weight loss) 1.7 mg (0.75 mL) subcut .QWEDNESDAY 90 days sertraline 100 mg PO DAILY 90 days Tobacco use date assessed: 05/08/24 Dental Screening Dental Screen Date: 03/19/24 HPI Follow up HPI0 Details Chief Complaint The patient reports issues concerning medication coverage and adjustment. History of Present Illness The patient is a 64-year-old female presenting for a regular follow-up appointment and issues with some medications. Medication management and coverage: - The patient reports an issue with medi [employer] coverage, particularly with a medication named Zepbound. Patient was on Wegovy but insurance coverage is denied, I have sent Zepbound instead Blood pressure management: - The patient has a history of hypertens ion with recent blood pressure readings at 116/70 mmHg. - Previous readings were around 130 mmHg . Diabetes management: - A1c recently reported at 5.9%, reflect ing good blood sugar control. Medical History: - Hypertension - Anxiety or associated condition manage d with clonazepam - Muscle spasms managed with cyclobenzap rine - Gastroesophageal reflux disease or rel ated condition managed with omeprazole - Depression managed with sertraline Medications: - Amlodipine: hypertension management - Clonazepam: management of anxiety or r elated condition - Cyclobenzaprine: management of muscle spasms - Losartan: hypertension management - Omeprazole: management of gastroesopha geal reflux disease - Sertraline: management of depression Problem List - Essential Hypertension - Anxiety Disorder - Muscle Spasms - Gastroesophageal Reflux Disease - Major Depressive Disorder Patient Instructions - Continue monitoring blood pressure at home to ensure optimal readings - Utilize patient portal for communicati on and management of medications - Arrange medication pick-up and verify availability at [facility] - Maintain current lifestyle and adhere to treatment plans discussed Review of Systems - General: No fever no chills - Neurological: No headaches no dizziness - Ear nose throat: No sore throat no hearing difficulty no ear pain - Cardiovascular: No syncope, no chest pain, no palpitations - Gastrointestinal: No nausea vomiting or diarrhea - Endocrine: No polyuria polydipsia no heat intolerance - Genitourinary: No dysuria , no blood in urine Physical Exam - General: No acute distress - HEENT: No acute findings - Neck: Supple - Respiratory system: Able to talk in f ull sentences, no audible wheeze - Cardiovascular: S1-S2 regular in rate and rhythm - Gastrointestinal: No pain - Extremities: No new findings - SENIOR MOBILE DEVELOPER: Alert awake oriented x3 motor se nsory intact - Skin: Normal turgor [facility] Medical History Smoker Malfunction of continuous positive airway pressure (CPAP) or bilevel positive airway pressure (BPAP) machine [place]INA on CPAP Obesity (BMI 35.0-39.9 without comorbidity) Anxiety, generalized Osteoarthritis, knee Hypertension, essential Periodic limb movement disorder Surgical History History of hysterectomy with bilateral oophorectomy History of section Family History Father No problems noted. Mother No problems noted. Brother No problems noted. Brother No problems noted. Brother No problems noted. Son No problems noted. Son No problems noted. Other Mental health disorder Social History Housing: House Are you a primary care worker to a significant other at home: No Do you presently have visiting nurse or other home services: No Alcohol intake: never Comment: counts correct Patient Tobacco Use Status: Current everyday Tobacco user Tobacco use type: Cigarette Cigarettes Per Day: 6 Years Smoked: 30 e-Cigarette/Vaping Use: Never Used Current occupational status: unemployed Cognitive needs: No Hearing needs: No Vision needs: No Questionnaire Thrive Questionnaire Date Thrive assessed: 03/19/24 LYNNE-7 AMB Questionnaire LYNNE-7 Date LYNNE - 7 assessed: 03/19/24 Source: Developed by Drs. Reji Gimenez, Kina B.W. Rodolfo Patel and colleagues, with an educational lamar from [employer]. Physical exam (Primary Care) Vital Signs: Last Vital Signs Pulse 72 10/14/24 12:16 BP 116/70 10/14/24 12:16 Pulse Ox 96 10/14/24 12:16 BMI result Body Mass Index 31.8 Tobacco/Smoking Status: Tobacco use Status Tobacco use date assessed 05/08/24 10/14/24 12:14 Patient Tobacco Use Status Current everyday Tobacco 10/14/24 12:14 Tobacco use type Cigarette 10/14/24 12:14 e-Cigarette/Vaping Use Never Used 10/14/24 12:14 Thrive Assessment: Date of Thrive Assessment Date Thrive assessed 03/19/24 10/14/24 12:14 Results AMB Hemoglobin A1c AMB Hemoglobin A1c 5.9 % Last Edit by Lucas Wheatley CMA on 10/14/24 12: 28 Results Reviewed Results Reviewed: Laboratory Last Values Hgb A1c (Clinic) 5.9 % (4.0-6.0) 10/14/24 12:19 Coding Level of Care Code Est Pt Level 4 (37334) Diagnoses Hypertension, essential I10 Periodic limb movement disorder G47.61 Anxiety, generalized F41.1 Obstructive sleep apnea syndrome G47.33 Sleep apnea type: obstructive Class 2 severe obesity due to excess calories with serious comorbidity and body mass index (BMI) of 37.0 to 37.9 in adult E66.01; Z68.37 Obesity classification: adult class 2 (BMI 35 - 39.9) Serious obesity comorbidity presence: with serious comorbidity Body mass index: BMI 37.0-37.9 Recurrent major depressive disorder, in partial remission F33.41 Active/Remission status: in partial remission LFT elevation R79.89 Assessment & Plan Assessment & Plan (1) Hypertension, essential: Code(s): I10 - Essential (primary) hypertension Category: Medical (2) Periodic limb movement disorder: Code(s): G47.61 - Periodic limb movement disorder Category: Medical (3) Anxiety, generalized: Code(s): F41.1 - Generalized anxiety disorder Category: Medical (4) Sleep apnea: Code(s): G47.30 - Sleep apnea, unspecified Category: Medical Qualifiers: Sleep apnea type: obstructive Qualified Code(s): G47.33 - Obstructive sleep apnea (adult) (pediatric) (5) Obesity due to excess calories: Code(s): E66.09 - Other obesity due to excess calories Category: Medical Qualifiers: Obesity classification: adult class 2 (BMI 35 - 39.9) Serious obesity comorbidity presence: with serious comorbidity Body mass index: BMI 37.0-37.9 Qualified Code(s): E66.01 - Morbid (severe) obesity due to excess calories; Z68.37 - Body mass index [BMI] 37.0-37.9, adult (6) Major depression, recurrent: Code(s): F33.9 - Major depressive disorder, recurrent, unspecified Category: Medical Qualifiers: Active/Remission status: in partial remission Qualified Code(s): F33.41 - Major depressive disorder, recurrent, in partial remission (7) LFT elevation: Code(s): R79.89 - Other specified abnormal findings of blood chemistry Category: Medical Plan Chief Complaint The patient reports issues concerning medication coverage and adjustment. History of Present Illness The patient is a 64-year-old female presenting for a regular follow-up appointment and issues with some medications. Medication management and coverage: - The patient reports an issue with medication coverage, particularly with a medication named Zepbound. Patient was on Wegovy but insurance coverage is denied, I have sent Zepbound instead Blood pressure management: - The patient has a history of hypertension with recent blood pressure readings at 116/70 mmHg. - Previous readings were around 130 mmHg. Diabetes management: - A1c recently reported at 5.9%, reflecting good blood sugar control. Medical History: - Hypertension - Anxiety or associated condition managed with clonazepam - Muscle spasms managed with cyclobenzaprine - Gastroesophageal reflux disease or related condition managed with omeprazole - Depression managed with sertraline Medications: - Amlodipine: hypertension management - Clonazepam: management of anxiety or related condition - Cyclobenzaprine: management of muscle spasms - Losartan: hypertension management - Omeprazole: management of gastroesophageal reflux disease - Sertraline: management of depression Problem List - Essential Hypertension - Anxiety Disorder - Muscle Spasms - Gastroesophageal Reflux Disease - Major Depressive Disorder Patient Instructions - Continue monitoring blood pressure at home to ensure optimal readings - Utilize patient portal for communication and management of medications - Arrange medication pick-up and verify availability at [facility] - Maintain current lifestyle and adhere to treatment plans discussed Orders: Orders AMB Hemoglobin A1c Today Z13.9 - Encounter for screening, unspecified Medications: New Zepbound (tirzepatide (weight loss)) for 4 weeks 2.5 mg (0.5 mL) subcut QWEEK 6 mL 0RF 90 days NS Refilled amlodipine 10 mg PO DAILY 90 tabs 0RF clonazepam 0.5 mg PO BEDTIME 90 tabs 0RF 90 days losartan 50 mg PO BID 180 tabs 0RF 90 days omeprazole Take 1 capsule on empty stomach at night 20 mg PO DAILY 90 caps 0RF Heartburn sertraline 100 mg PO DAILY 90 tabs 0RF 90 days F41.1 - Generalized anxiety disorder Discontinued semaglutide (weight loss) administer weeks 1 through 4 of therapy Discontinued Reason: Doctor's Order 1.7 mg (0.75 mL) subcut .QWEDNESDAY 90 days 3 mL 2RF
[2024-10-14 12:16] VITALS: BP 116/70; PULSE 72; O2SAT 96; BMI 31.8
--- OUTSIDE RECORDS SUMMARY | 2024-10-14 12:52 | XMS_ITS | Patient Health Record ---
[facility] Address [address] [place] [address] Care Team Providers Care Steel Fabricating Supervisor Name Role Phone Barry HOUSE, [facility] Primary Care Provider Latisha Dao Unavailable [phone] Reason For Referral No Information Medications Medication SIG (Take, Route, Fr equency, Duration) Notes Start Date End Date Status Calcium Active ibuprofen Active Losartan Potassium A ctive Sertraline HCl Activ e Problems No Known Problems Plan Of Treatment Pending Test Test Name Order Date [id number] Destruction, -01/13/2015 [id number] Destruction, 03-1702/03/2015 Insurance Providers Payer Name Payer Address Payer Phone Subscriber Number Group Number Insured Name Patient Relationship to Insured Coverage Start Date Coverage End Date [facility] [address] [facility] [address] [id number] Spouse - patient is the spouse of the insured Medical (General) History Medical History History ICD Code Anxiety Back,Hip,and Knee pain Chicken pox Measles Hypertension Surgical History Surgery Date(Month/Year) section x2 ovarian surgery
--- OUTSIDE RECORDS SUMMARY | 2024-10-14 12:52 | XMS_ITS | Patient Health Record ---
Author Organization [facility] Address [address] [place] [address] Care Team Providers Care Linoleum Tile Layer Name Role Phone Barry HOUSE, Asma Primary Care Provider Reji Malone [phone] Reason For Referral No Information Medications Medication [...] Problem Status W/U Status Risk Notes Problem [id number] Encounter for screening for malignant neoplasm of colon (Z12.11) Active confirmed Problem [id number] Preprocedural examination (Z01.818) Active confirmed Plan Of Treatment Pending Test Test Name Order Date GI BIOPSY 07/17/2017 Future Test Test Name Order Date COLONOSCOPY 04/04/2017 Insurance Providers Payer Name Payer Address Payer Phone Subscriber Number Group Number Insured Name Patient Relationship to Insured Coverage Start Date Coverage End Date [facility] [address] [address] [place], [place] [id number] ARA MATTHEWS Self - patient is the insured MEDICAID OF [employer] [address] [place] [address] [phone] [id number] ARA MATTHEWS Self - patient is the insured Medical (General) History Medical History History ICD Code Hypertension Denies [place],DM,CVA,Lung disease,renal dise ase Arthritis in knees Anxiety Sleep apnea--uses CPAP Surgical History Surgery Date(Month/Year) 1988,1990 [facility]
--- OUTSIDE RECORDS SUMMARY | 2024-10-14 12:52 | XMS_ITS | Clinical Summary ---
Author Organization [employer] Address [address] [place] [address] Care Team Providers Care Computer Hardware Engineer Name Role Phone Unavailable Primary Care Provider [...] Sodium Fluoride 1.1 % creamIndications:De ntin hypersensitivity [place] teeth for 2 minutes, morning and night. [...]
== END 2024-10-14 12:33 | disposition home or self-care (01) ==
LOC: HO.HMCC 12:09
PROVIDERS: Visit Provider Internal Medicine
DX: I10 Essential (primary) hypertension (principal); G47.61 Periodic limb movement disorder; E66.01 Morbid (severe) obesity due to excess calories; Z68.37 Body mass index [BMI] 37.0-37.9, adult; F41.1 Generalized anxiety disorder; G47.33 Obstructive sleep apnea (adult) (pediatric); F33.41 Major depressive disorder, recurrent, in partial remission; R79.89 Other specified abnormal findings of blood chemistry; Z13.9 Encounter for screening, unspecified

== ENCOUNTER → 2024-10-14 12:09 | Outpatient (BNVA) | payer OTHER, SELFPAY | PROVIDERS: Visit Provider Internal Medicine | DX: I10 Essential (primary) hypertension (principal); G47.61 Periodic limb movement disorder; F41.1 Generalized anxiety disorder; G47.33 Obstructive sleep apnea (adult) (pediatric); E66.01 Morbid (severe) obesity due to excess calories; E66.812 Obesity, class 2; F33.41 Major depressive disorder, recurrent, in partial remission; R79.89 Other specified abnormal findings of blood chemistry; Z51.81 Encounter for therapeutic drug level monitoring; Z68.37 Body mass index [BMI] 37.0-37.9, adult; Z79.899 Other long term (current) drug therapy | CPT/HCPCS: 83036; 99212 ==

== ENCOUNTER 2024-12-28 10:30 | Outpatient (AMB) | payer OTHER, SELFPAY ==
[2024-12-28 11:14] VITALS: BP 130/82; PULSE 59; TEMP 36.6; O2SAT 95; BMI 32.2
--- NOTE | 2024-12-28 11:14 | MHC.OFFWIV ---
Intake Vital Signs 12/28/24 11:14 Height 5 ft 2 in Weight 176 lb BMI 32.2 BP 130/82 Blood Pressure Location Lt brachial Position Sitting Pulse 59 Pulse Source Pulse Oximeter Temp 97.8 F Temp Source Oral Pulse Oximetry (%) 95 Oxygen Delivery Method Room Air Intake Visit Reasons: EP-bl/l ears block Intake Note: pt presents with NUNU ear blockage after using q-tips; LT > RT x4-5 days Patient Tobacco Use Status: Current everyday Tobacco user Allergies No Known Allergies Allergy (Verified 12/28/24 11:16) Do you need a note to return to daycare/school/sports/work: No HPI HPI Comments History of Present Illness Details History - The patient is a 64-year-old female presenting with a sensation of fullness in the left ear. - Reports fullness in the left ear without pain, fever, chills, headache, dizziness, or congestion. - Denies hearing loss in the right ear but notes decreased hearing in the left ear. - Uses Q-tips, potentially contributing to cerumen impaction. - She wants her ears flushed out. - She denies cold symptoms. Physical Exam General: Cooperative, healthy appearing, comfortable, no acute distress and well developed Head: Normal to inspection Ears: External ears normal bilaterally. No tragus or mastoid tenderness noted. Cerumen noted in both canals. TM's not visualized. Face and sinus: Normal facial exam. No TTP of the sinuses. Neck: Normal visual inspection. Full ROM. No lymphadenopathy noted. Respiratory: Normal respiratory effort and able to speak in complete sentences. Clear to auscultation bilaterally. No w/r/r noted. Cardiac: RRR, no m/r/g noted. Normal S1 and S2 noted. Patient was informed and verbally consented to the use of an ambient scribe for clinic note documentation during this visit. ON LICENSE OF [facility] Medical History Smoker Malfunction of continuous positive airway pressure (CPAP) or bilevel positive airway pressure (BPAP) machine POLINA on CPAP Obesity (BMI 35.0-39.9 without comorbidity) Anxiety, generalized Osteoarthritis, knee Hypertension, essential Periodic limb movement disorder Surgical History History of hysterectomy with bilateral oophorectomy History of section Family History Father No problems noted. Mother No problems noted. Brother No problems noted. Brother No problems noted. Brother No problems noted. Son No problems noted. Son No problems noted. Other Mental health disorder Social History Housing: House Are you a primary health care specialist to a significant other at home: No Do you presently have visiting nurse or other home services: No Alcohol intake: never Comment: counts correct Patient Tobacco Use Status: Current everyday Tobacco user Tobacco use type: Cigarette Cigarettes Per Day: 6 Years Smoked: 30 e-Cigarette/Vaping Use: Never Used Current occupational status: unemployed Cognitive needs: No Hearing needs: No Vision needs: No Review of Systems Const All systems reviewed & are unremarkable except as noted in HPI and below Physical Exam Vital Signs: Last Vital Signs Temp 97.8 F 12/28/24 11:14 Pulse 59 12/28/24 11:14 BP 130/82 12/28/24 11:14 Pulse Ox 95 12/28/24 11:14 Oxygen Delivery Method Room Air 12/28/24 11:14 BMI result Body Mass Index 32.2 Office Procedures Cerumen Removal From which ear canal was the cerumen removed: bilateral Removal: irrigation Notes: patient tolerated procedure well, no complications and ear canal clear [id number] Irrigation/Lavage Assessment & Plan Assessment & Plan (1) Impacted cerumen of both ears: Code(s): H61.23 - Impacted cerumen, bilateral Plan Most likely impaction Plan - Perform ear irrigation to remove cerumen impaction. - Prescribe ear drops for home use to soften earwax - Advise the patient to avoid using Q-tips to prevent further impaction. - follow up with PCP Orders: Orders AMB Cerumen Removal Today H61.23 - Impacted cerumen, bilateral Medications: New carbamide peroxide 6.5% (Debrox) 5 drps otic (ears) DAILY 15 mL 0RF 4 days Coding Level of Care Code Est Pt Level 3 (29041) Diagnoses Impacted cerumen of both ears H61.23 CPT Codes Office Procedure - CPT: [id number] Irrigation/Lavage ([id number])
--- OUTSIDE RECORDS SUMMARY | 2024-12-28 12:49 | XMS_ITS | Patient Health Record ---
Author Organization [facility] Address [address] [address] [facility] [place] [address] Care Team Providers Care Sustainability Coordinator Name Role Phone Barry [facility]SE, [facility] Primary Care Provider Latisha Dao Unavailable [phone] Reason For Referral No Information Medications Medication SIG (Take, Route, Fr equency, Duration) Notes Start Date End Date Status Calcium Active ibuprofen Active Losartan Potassium A ctive Sertraline HCl Activ e Problems No Known Problems Plan Of Treatment Pending Test Test Name Order Date [id number] Destruction, -01/13/2015 [id number] Destruction, 03-1702/03/2015 Insurance Providers Payer Name Payer Address Payer Phone Subscriber Number Group Number Insured Name Patient Relationship to Insured Coverage Start Date Coverage End Date [facility] [address] [facility] [address] [id number] Spouse - patient is the spouse of the insured Medical (General) History Medical History History ICD Code Anxiety Back,Hip,and Knee pain Chicken pox Measles Hypertension Surgical History Surgery Date(Month/Year) section x2 ovarian surgery
--- OUTSIDE RECORDS SUMMARY | 2024-12-28 12:49 | XMS_ITS | Encounter Summary ---
Author Organization [facility] Address [address] [place] [address] 7 [place] [address] Care Team Providers Care Container Repairer Name Role Phone Unavailable Primary Care Provider Unavailabl e Encounter Details Date Type Department Care Team (Latest Contact Info) Description 11/14/2020 Abstract [facility] CONVERSIONS Dental, Provider, DDS Social History [...]
--- OUTSIDE RECORDS SUMMARY | 2024-12-28 12:49 | XMS_ITS | Encounter Summary ---
Author Organization [employer] [facility] Address [address] [place] [address] 7 [place] [address] Care Team Providers Care It Administrative Assistant Name Role Phone Unavailable Primary Care Provider Unavailabl e Encounter Details Date Type Department Care Team (Latest Contact Info) Description 08/20/2018 Abstract [facility] CONVERSIONS Dental, Provider, DDS Social History [...]
--- OUTSIDE RECORDS SUMMARY | 2024-12-28 12:49 | XMS_ITS | Clinical Summary ---
Author Organization [employer] Address [address] [facility] [address]t [place] [address] Care Team Providers Care Clinical Trials Systems Administrator Name Role Phone Unavailable Primary Care Provider [...] Sodium Fluoride 1.1 % creamIndications:De ntin hypersensitivity [place] teeth for 2 minutes, morning and night. [...] 2002 Zoster Vaccines (1 of 2) 02/16/2012 Dental Oral Exam 03/29/2024 09/26/2023 Dental Prophylaxis 03/29/2024 09/26/2023 Dental X-Ray: Bitewings 09/26/2024 09/26/2023 COVID-19 Vaccine ( - season) 2024 02/23/2021, 05/04/2020, 04/13/2020 Influenza Vaccine (#1) 2024 , 02/21/2022, 11/22/2021, [...]
--- OUTSIDE RECORDS SUMMARY | 2024-12-28 12:49 | XMS_ITS | Encounter Summary ---
Author Organization [facility] Address [address] [place] [address] [address] [place] [address] Care Team Providers Care Rate Inserter Name Role Phone Unavailable Primary Care Provider Unavailabl e Encounter Details Date Type Department Care Team (Latest Contact Info) Description 10/12/2021 Abstract [facility] CONVERSIONS Dental, Provider, DDS Social History Tobacco [...]
--- OUTSIDE RECORDS SUMMARY | 2024-12-28 12:49 | XMS_ITS | Patient Health Record ---
Author Organization [facility] Address [address] [place] [address] Care Team Providers Care Oil Field Caser Name Role Phone Barry HOUSE, Asma Primary Care Provider Reji Malone [phone] Reason For Referral No Information Medications Medication SIG (Take, Route, Frequency, Duration) Notes Start Date End Date Status Dulcolax (colon prep) 5 MG take at 3:00 p.m and 7:00p.m. Orally two tablets twice a day for one day; Duration: 1 day 04/04/2017 Active Calcium 200 MG 1 tablet with meals Orally Once a day Active MiraLax (colon prep) 8.3 ounce ((238) grams mixed with Gatorade or Crystal Light orally begin at 5:00 p.m. the day before the procedure; Duration: 1 day 04/04/2017 Active Ibuprofen 200 MG 1 tablet with food o r milk as needed Orally as needed Activ e Sertraline HCl 25 MG TAKE 1 TABLET BY MO [facility] EVERY DAY Oral; Duration: 30 Active Losartan Potassium 50 MG TAKE 1 TABLET B Y MOUTH EVERY DAY Oral; Duration: 30 Active Social History Tobacco Use: Social [...] Problem Status W/U Status Risk Notes Problem Screening for malignant neoplasm of colon (859069617) Encounter for screening for malignant neoplasm of colon (Z12.11) Active confirmed Problem Preprocedural examination ([id number]) Preprocedural examination (Z01.818) Active confirmed Plan Of Treatment Pending Test Test Name Order Date GI BIOPSY 07/17/2017 Future Test Test Name Order Date COLONOSCOPY 04/04/2017 Insurance Providers Payer Name Payer Address Payer Phone Subscriber Number Group Number Insured Name Patient Relationship to Insured Coverage Start Date Coverage End Date [facility] [address] [address] [place], [place] [id number] YASMANY MATTHEWSBA Self - patient is the insured MEDICAID OF [id number] [address] [place] [address] [phone] [id number] YASMANY MATTHEWSBA Self - patient is the insured Medical (General) History Medical History History ICD Code Hypertension Denies [place],DM,CVA,Lung disease,renal dise ase Arthritis in knees Anxiety Sleep apnea--uses CPAP Surgical History Surgery Date(Month/Year) 1988,1990 [facility]
== END 2024-12-28 12:38 | disposition home or self-care (01) ==
PROVIDERS: PCP Internal Medicine; Visit Provider Physician Assistant Medical
DX: H61.23 Impacted cerumen, bilateral (principal)

== ENCOUNTER → 2024-12-28 10:30 | Outpatient (BNVA) | payer OTHER, SELFPAY | PROVIDERS: PCP Internal Medicine; Visit Provider Physician Assistant Medical | DX: H61.23 Impacted cerumen, bilateral (principal) | CPT/HCPCS: 69209; 99212 ==

== ENCOUNTER 2025-01-01 08:02 | Outpatient (REF) | payer OTHER, SELFPAY ==
--- OUTSIDE RECORDS SUMMARY | 2025-01-01 08:06 | XMS_ITS | Encounter Summary ---
Author Organization [employer] [facility] Address [address] [place] [address] [address] [place] [address] Care Team Providers Care Application Integration Engineer Name Role Phone Unavailable Primary Care Provider Unavailabl e Encounter Details Date Type Department Care Team (Latest Contact Info) Description 08/20/2018 Abstract [facility] CONVERSIONS Dental, Provider, DDS Social [...]
--- OUTSIDE RECORDS SUMMARY | 2025-01-01 08:06 | XMS_ITS | Clinical Summary ---
Author Organization [employer] Address [address] [facility] [address]t [place] [address] Care Team Providers Care Controller Mechanic Name Role Phone Unavailable Primary Care Provider [...] Sodium Fluoride 1.1 % creamIndications:De ntin hypersensitivity [place] teeth for 2 minutes, morning and night. [...]
--- OUTSIDE RECORDS SUMMARY | 2025-01-01 08:06 | XMS_ITS | Encounter Summary ---
Author Organization [employer] [facility] Address [address] [place] [address] 7 [place] [address] Care Team Providers Care Transfer Table Operator Helper Name Role Phone Unavailable Primary Care Provider Unavailabl e Encounter Details Date Type Department Care Team (Latest Contact Info) Description 10/12/2021 Abstract [facility] CONVERSIONS Dental, Provider, DDS Social History [...]
--- OUTSIDE RECORDS SUMMARY | 2025-01-01 08:06 | XMS_ITS | Patient Health Record ---
Author Organization [facility] Address [address] [facility] [facility] [place] [address] Care Team Providers Care Paper Cone Machine Tender Name Role Phone Barry HOUSE, [facility] Primary Care Provider Latisha Dao Unavailable [phone] Reason For Referral No Information Medications Medication SIG (Take, Route, Fr equency, Duration) Notes Start Date End Date Status Calcium Active ibuprofen Active Losartan Potassium A ctive Sertraline HCl Activ e Problems No Known Problems Plan Of Treatment Pending Test Test Name Order Date [id number] Destruction, -01/13/2015 [id number] Destruction, 03-1702/03/2015 Insurance Providers Payer Name Payer Address Payer Phone Subscriber Number Group Number Insured Name Patient Relationship to Insured Coverage Start Date Coverage End Date [facility] [address] [facility] [id number] Spouse - patient is the spouse of the insured Medical (General) History Medical History History ICD Code Anxiety Back,Hip,and Knee pain Chicken pox Measles Hypertension Surgical History Surgery Date(Month/Year) section x2 ovarian surgery
--- OUTSIDE RECORDS SUMMARY | 2025-01-01 08:06 | XMS_ITS | Patient Health Record ---
Author Organization [facility] Address [address] [place] [address] Care Team Providers Care Webbing Tacker Name Role Phone Barry HOUSE, Asma Primary Care Provider Reji Malone [phone] Reason For Referral No Information Medications Medication [...] 25 MG TAKE 1 TABLET [facility] Oral; Duration: 30 Active Losartan [...] Problem Screening for malignant neoplasm of colon (659766845) Encounter for screening for malignant neoplasm of colon (Z12.11) Active confirmed Problem Preprocedural examination (018223518793692) Preprocedural examination (Z01.818) Active confirmed Plan Of Treatment Pending Test Test Name Order Date GI BIOPSY 07/17/2017 Future Test Test Name Order Date COLONOSCOPY 04/04/2017 Insurance Providers Payer Name Payer Address Payer Phone Subscriber Number Group Number Insured Name Patient Relationship to Insured Coverage Start Date Coverage End Date [facility] [address] [address] [place], [place] [id number] YASMANY MATTHEWSBA Self - patient is the insured [facility] [address] [place] [address] [id number] YASMANY MATTHEWSBA Self - patient is the insured Medical (General) History Medical History History ICD Code Hypertension Denies [place],DM,CVA,Lung disease,renal dise ase Arthritis in knees Anxiety Sleep apnea--uses CPAP Surgical History Surgery Date(Month/Year) 1988,1990 ASTRID
--- OUTSIDE RECORDS SUMMARY | 2025-01-01 08:06 | XMS_ITS | Encounter Summary ---
Author Organization [facility] Address [address] [place] [address] 7 [place] [address] Care Team Providers Care City Editor Name Role Phone Unavailable Primary Care Provider Unavailabl e Encounter Details Date Type Department Care Team (Latest Contact Info) Description 11/14/2020 Abstract [facility] CONVERSIONS Dental, Provider, DDS Social History [...]
--- NOTE | 2025-01-01 08:09 | PFT_ITS ---
Flows: FEV1: 77 % of predicted at 1.73 L FVC: 77 % of predicted at 2.22 L FEV1/FVC: 78 % Bronchodilator response: Unable to perform bronchodilator testing secondary to equipment malfunction Volumes: Total lung capacity: 79 % of predicted at 3.72 L Residual volume: 90 % of predicted at 1.51 L Slow vital capacity: 72 % of predicted at 2.22 L Expiratory reserve volume: 41 % of predicted at 0.30 L Diffusion capacity: Normal Impression: Moderate restrictive ventilatory defect. Unable to perform bronchodilator testing secondary to equipment malfunction. Decreased expiratory reserve volume suggests extrathoracic restriction likely secondary to abdominal obesity. MTDD
== END 2025-01-01 08:03 | disposition home or self-care (01) ==
LOC: HO.RESP 08:02
PROVIDERS: PCP Internal Medicine; Visit Provider Internal Medicine
DX: F17.210 Nicotine dependence, cigarettes, uncomplicated (principal); R06.2 Wheezing
CPT/HCPCS: 94010; 94727; 94729

== ENCOUNTER → 2025-01-01 08:09 | Outpatient (BNV) | payer OTHER, SELFPAY | PROVIDERS: PCP Internal Medicine; Visit Provider Internal Medicine Pulmonary Disease | DX: J98.4 Other disorders of lung (principal) | CPT/HCPCS: 94060; 94727; 94729 ==

== ENCOUNTER 2025-01-22 07:54 | Outpatient (AMB) | payer OTHER, SELFPAY ==
--- OUTSIDE RECORDS SUMMARY | 2025-01-22 07:58 | XMS_ITS | Clinical Summary ---
Author Organization [employer] Address [address] [facility] 7t [place] [address] Care Team Providers Care Yard Supervisor Name Role Phone Unavailable Primary Care [...] Sodium Fluoride 1.1 % creamIndications:De ntin hypersensitivity [place] teeth for 2 minutes, morning and night. [...]
--- OUTSIDE RECORDS SUMMARY | 2025-01-22 07:58 | XMS_ITS | Patient Health Record ---
Author Organization [facility] Address [address] [place] [address] Care Team Providers Care Power Saw Operator Name Role Phone [facility], [facility] Primary Care Provider Reji Malone [phone] Reason For Referral No Information Medications Medication SIG (Take, Route, Frequency, Duration) Notes Start Date End Date Status Dulcolax (colon prep) 5 MG Tablet Delayed Release take at 3:00 p.m and 7:00p.m. Orally two tablets twice a day for one day; Duration: 1 day 04/04/2017 Active Calcium 200 MG Tablet 1 tablet with meal s Orally Once a day Active MiraLax (colon prep) 8.3 ounce ((238) grams mixed with Gatorade or Crystal Light orally begin at 5:00 p.m. the day before the procedure; Duration: 1 day 04/04/2017 Active Ibuprofen 200 MG Tablet 1 tablet with fo od or milk as needed Orally as needed Activ e Sertraline HCl 25 MG Tablet TAKE 1 TABLET BY MOUTH EVERY DAY Oral; Duration: 30 Active Losartan Potassium 50 MG Tablet TAKE 1 TABLET BY MOUTH EVERY DAY Oral; Duration: 30 Active Social History Tobacco Use: Social History Observation Description Date Details (start date - stop date) Current Smoker NA - NA Social History Tobacco Use: Social Info Question Answer Notes Tobacco Use/Smoking Patient is a current smoker How often do you smoke cigarettes? every day How many cigarettes a day do you smoke? 5 or less How soon after you wake up do you smoke your first cigarette? after 60 minutes Are you interested in quitting? 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 Smoke 3-4 cigs QD, no sig alcohol Problems Problem Type SNOMED Code ICD Code Onset Dates Problem Status W/U Status Risk Notes Problem Screening for malignant neoplasm of colon (250644782) Encounter for screening for malignant neoplasm of colon (Z12.11) Active confirmed Problem Preprocedural examination (159878819918599) Preprocedural examination (Z01.818) Active confirmed Plan Of Treatment Pending Test Test Name Order Date GI BIOPSY 07/17/2017 Future Test Test Name Order Date COLONOSCOPY 04/04/2017 Insurance Providers Payer Name Payer Address Payer Phone Subscriber Number Group Number Insured Name Patient Relationship to Insured Coverage Start Date Coverage End Date [facility] [address] [address] [place], [place] [id number] ARA MATTHEWS Self - patient is the insured MEDICAID OF [facility] [address] [place] [address] [id number] ARA MATTHEWS Self - patient is the insured Medical (General) History Medical History History ICD Code Hypertension Denies [place],DM,CVA,Lung disease,renal dise ase Arthritis in knees Anxiety Sleep apnea--uses CPAP Surgical History Surgery Date(Month/Year) 1988,1990 ASTRID
--- OUTSIDE RECORDS SUMMARY | 2025-01-22 07:58 | XMS_ITS | Encounter Summary ---
Author Organization [facility] Address [address] [place] [address] 7 [place] [address] Care Team Providers Care Pumper Helper Name Role Phone Unavailable Primary Care Provider Unavailabl e Encounter Details Date Type Department Care Team (Latest Contact Info) Description 11/14/2020 Abstract [facility] CONVERSIONS Dental, Provider, DDS Social [...]
--- OUTSIDE RECORDS SUMMARY | 2025-01-22 07:58 | XMS_ITS | Encounter Summary ---
Author Organization [employer] [facility] Address [address] [place] [address] 7 [place] [address] Care Team Providers Care Clinical Biostatistics Director Name Role Phone Unavailable Primary Care Provider Unavailabl e Encounter Details Date Type Department Care Team (Latest Contact Info) Description 10/12/2021 Abstract [facility] CONVERSIONS Dental, Provider, DDS Social [...]
--- OUTSIDE RECORDS SUMMARY | 2025-01-22 07:58 | XMS_ITS | Patient Health Record ---
Author Organization [facility] Address [address] [facility] [place] [address] Care Team Providers Care Outpatient Coder Name Role Phone Barry HOUSE, [facility] Primary Care Provider Latisha Dao Unavailable [phone] Reason For Referral No Information Medications Medication SIG (Take, Route, Fr equency, Duration) Notes Start Date End Date Status Calcium Active ibuprofen Active Losartan Potassium A ctive Sertraline HCl Activ e Problems No Known Problems Plan Of Treatment Pending Test Test Name Order Date [id number] Destruction, -01/13/2015 [id number] Destruction, 03-1702/03/2015 Insurance Providers Payer Name Payer Address Payer Phone Subscriber Number Group Number Insured Name Patient Relationship to Insured Coverage Start Date Coverage End Date [facility] [address] [facility] [address] [id number] Spouse - patient is the spouse of the insured Medical (General) History Medical History History ICD Code Anxiety Back,Hip,and Knee pain Chicken pox Measles Hypertension Surgical History Surgery Date(Month/Year) section x2 ovarian surgery
--- OUTSIDE RECORDS SUMMARY | 2025-01-22 07:58 | XMS_ITS | Encounter Summary ---
Author Organization [facility] Address [address] [place] [address] 7 [place] [address] Care Team Providers Care Research Center Director Name Role Phone Unavailable Primary Care Provider Unavailabl e Encounter Details Date Type Department Care Team (Latest Contact Info) Description 08/20/2018 Abstract [facility] CONVERSIONS Dental, Provider, DDS Social History Tobacco [...]
--- NOTE | 2025-01-22 08:08 | A.OFFPC_ITS ---
Vital Signs 01/22/25 08:09 Height 5 ft 2 in Weight 177 lb BMI 32.4 BP 128/74 Blood Pressure Location Lt brachial Position Sitting Pulse 70 Pulse Source Pulse Oximeter Pulse Oximetry (%) 94 Intake Visit Reasons: 3m follow up Allergies No Known Allergies Allergy (Verified 01/22/25 08:10) Medication List - Last Reconciled 01/22/25 by Norbert Reddy MD amlodipine 10 mg PO DAILY [Bp Monitor As directed] clonazepam 0.5 mg PO BEDTIME 90 days cyclobenzaprine 5 mg PO BEDTIME PRN losartan 50 mg PO BID 90 days omeprazole 20 mg PO DAILY sertraline 100 mg PO DAILY 90 days Zepbound (tirzepatide (weight loss)) 2.5 mg (0.5 mL) subcut QWEEK 90 days NS Tobacco use date assessed: 05/08/24 Dental Screening Dental Screen Date: 03/19/24 HPI HPI Comments History of Present Illness Details History of Present Illness The patient is a 64 year old individual presenting for follow-up and management of multiple chronic conditions. Hypertension: - The patient takes amlodipine and losar alex for hypertension. Gastroesophageal Reflux Disease: - The patient takes omeprazole for acid reflux. Obesity: - The patient's weight was 175 in July, 1 76 in December, and is currently 177. - The patient is currently taking Zepbou nd 2.5 mg and reports having control of the patient's diet. Prediabetes: - A blood test in October showed an A1c o f 5.9. - The patient does not perform fingersti ck glucose monitoring. Osteoarthritis of knee: - The patient reports left knee pain and has difficulty putting weight on it. - The patient has to keep the knee strai ght, including when using stairs. Abnormal pulmonary function: - A recent pulmonary function test showe d moderate impairment. - instructed to stop smoking Medical History: - Hypertension - Gastroesophageal reflux disease - Obesity - Prediabetes - Osteoarthritis of the knee - Abnormal pulmonary function test showi ng moderate impairment Medications: - Amlodipine for hypertension - Losartan for hypertension - Omeprazole for acid reflux - Zepbound 2.5 mg for weight loss - Sertraline 100 mg - Clonazepam for leg movement disorder Social History: - Diet: The patient reports having contr ol over the diet and drinks tea with a small amount of milk. - Exercise: The patient is limited by kn ee pain and does about 5 minutes of exercise. - Functional Status: The patient has dif ficulty putting weight on the left knee and must keep it straight when using stairs. Diagnostic Results: - Labs: A1c was 5.9 in October. - Tests and Diagnostics: Pulmonary funct ion test showed moderate severity impairment. [facility] Medical History Smoker Malfunction of continuous positive airway pressure (CPAP) or bilevel positive airway pressure (BPAP) machine [place] on CPAP Obesity (BMI 35.0-39.9 without comorbidity) Anxiety, generalized Osteoarthritis, knee Hypertension, essential Periodic limb movement disorder Surgical History History of hysterectomy with bilateral oophorectomy History of section Family History Father No problems noted. Mother No problems noted. Brother No problems noted. Brother No problems noted. Brother No problems noted. Son No problems noted. Son No problems noted. Other Mental health disorder Social History Housing: House Are you a primary wound care nurse to a significant other at home: No Do you presently have visiting nurse or other home services: No Alcohol intake: never Comment: counts correct Patient Tobacco Use Status: Current everyday Tobacco user Tobacco use type: Cigarette Cigarettes Per Day: 6 Years Smoked: 30 e-Cigarette/Vaping Use: Never Used Current occupational status: unemployed Cognitive needs: No Hearing needs: No Vision needs: No Questionnaire Thrive Questionnaire Date Thrive assessed: 03/19/24 LYNNE-7 AMB Questionnaire LYNNE-7 Date LYNNE - 7 assessed: 03/19/24 Source: Developed by Drs. Reji Gimenez, Kina Patel, Rodolfo Mosley and colleagues, with an educational lamar from [employer]. Review of Systems Narrative Review of Systems - General: No fever no chills - Neurological: No headaches no dizziness - Ear nose throat: No sore throat no hearing difficulty no ear pain - Cardiovascular: No syncope, no chest pain, no palpitations - Gastrointestinal: No nausea vomiting or diarrhea - Endocrine: No polyuria polydipsia no heat intolerance - Genitourinary: No dysuria , no blood in urine Physical exam (Primary Care) Vital Signs: Last Vital Signs Pulse 70 01/22/25 08:09 BP 128/74 01/22/25 08:09 Pulse Ox 94 01/22/25 08:09 BMI result Body Mass Index 32.4 Tobacco/Smoking Status: Tobacco use Status Tobacco use date assessed 05/08/24 01/22/25 08:10 Patient Tobacco Use Status Current everyday Tobacco 01/22/25 08:10 Tobacco use type Cigarette 01/22/25 08:10 e-Cigarette/Vaping Use Never Used 01/22/25 08:10 Thrive Assessment: Date of Thrive Assessment Date Thrive assessed 03/19/24 01/22/25 08:10 Narrative Physical Exam General: No acute distress HEENT: No acute findings Neck: Supple Respiratory system: Moderate shortness of breath on exertion, no audible wheeze Cardiovascular: S1-S2 regular in rate and rhythm Gastrointestinal: No pain Extremities: Left knee likely ready for replacement, advised to wear a knee brace for stability MANAGER SECONDARY: Alert awake oriented x3 motor intact Skin: Normal turgor Coding Level of Care Code Est Pt Level 4 (58728) Diagnoses Hypertension, essential I10 Chronic restrictive lung disease J98.4 Internal derangement of left knee M23.92 Recurrent major depressive disorder, in partial remission F33.41 Active/Remission status: in partial remission Periodic limb movement disorder G47.61 POLINA on CPAP G47.33; Z99.89 Class 2 severe obesity due to excess calories with serious comorbidity and body mass index (BMI) of 37.0 to 37.9 in adult E66.01; Z68.37 Body mass index: BMI 37.0-37.9 Obesity classification: adult class 2 (BMI 35 - 39.9) Serious obesity comorbidity presence: with serious comorbidity Tobacco abuse Z72.0 Assessment & Plan Assessment & Plan (1) Hypertension, essential: Code(s): I10 - Essential (primary) hypertension Category: Medical (2) Chronic restrictive lung disease: Code(s): J98.4 - Other disorders of lung Category: Medical (3) Internal derangement of left knee: Code(s): M23.92 - Unspecified internal derangement of left knee Category: Medical (4) Major depression, recurrent: Code(s): F33.9 - Major depressive disorder, recurrent, unspecified Category: Medical Qualifiers: Active/Remission status: in partial remission Qualified Code(s): F33.41 - Major depressive disorder, recurrent, in partial remission (5) Periodic limb movement disorder: Code(s): G47.61 - Periodic limb movement disorder Category: Medical (6) POLINA on CPAP: Comment: SHE HAS BEEN ON CPAP, SINCE 2013. HAS BEEN VERY COMPLIANT AND BENEFITTING. NOW WITH THE NEW CPAP MACHINE SHE FEELS MUCH BETTER. The new nasal mask, is not fitting her well, and there seems to be some air leak at night. 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 Code(s): G47.33 - Obstructive sleep apnea (adult) (pediatric); Z99.89 - Dependence on other enabling machines and devices Category: Medical (7) Obesity due to excess calories: Code(s): E66.09 - Other obesity due to excess calories Category: Medical Qualifiers: Body mass index: BMI 37.0-37.9 Obesity classification: adult class 2 (BMI 35 - 39.9) Serious obesity comorbidity presence: with serious comorbidity Qualified Code(s): E66.01 - Morbid (severe) obesity due to excess calories; Z68.37 - Body mass index [BMI] 37.0-37.9, adult (8) Tobacco abuse: Code(s): Z72.0 - Tobacco use Category: Medical Plan Problem List - Hypertension - Gastroesophageal reflux disease - Obesity - Prediabetes - Osteoarthritis of the knee - Abnormal pulmonary function - leg movement disorder - sleep apnea Plan - The dosage of Zepbound will be increased to 5 mg. - A blood test, including cholesterol, will be ordered for the following day. - An X-ray of the knee will be ordered. - An appointment will be made for an orthopedic consultation. - Recommended wearing a knee brace for stability when needed. - An inhaler will not be sent at this time as the patient denies shortness of breath. - Will discuss a diet plan. - med refil sent f/u 3 M . Orders: Orders Complete Blood Count Auto Diff Today E66.01 - Morbid (severe) obesity due to excess calories, F33.41 - Major depressive disorder, recurrent, in partial remission, G47.33 - Obstructive sleep apnea (adult) (pediatric), I10 - Essential (primary) hypertension, M17.0 - Bilateral primary osteoarthritis of knee, Z68.37 - Body mass index [BMI] 37.0-37.9, adult, Z72.0 - Tobacco use, Z99.89 - Dependence on other enabling machines and devices Comprehensive [place]. Panel Fast Today E66.01 - Morbid (severe) obesity due to excess calories, F33.41 - Major depressive disorder, recurrent, in partial r emission, G47.33 - Obstructive sleep apnea (adult) (pediatric), I10 - Essential (primary) hypertension, M17.0 - Bilateral primary osteoarthritis of knee, Z68.37 - Body mass index [BMI] 37.0-37.9, adult, Z72.0 - Tobacco use, Z99.89 - Dependence on other enabling machines and devices Hemoglobin A1c Today E66.01 - Morbid (severe) obesity due to excess calories, F33.41 - Major depressive disorder, recurrent, in partial remission, G47.33 - Obstructive sleep apnea (adult) (pediatric), I10 - Essential (primary) hypertension, M17.0 - Bilateral primary osteoarthritis of knee, Z68.37 - Body mass index [BMI] 37.0-37.9, adult, Z72.0 - Tobacco use, Z99.89 - Dependence on other enabling machines and devices Microalbumin, Random (w Creat) Today E66.01 - Morbid (severe) obesity due to excess calories, F33.41 - Major depressive disorder, recurrent, in partial remission, G47.33 - Obstructive sleep apnea (adult) (pediatric), I10 - Essential (primary) hypertension, M17.0 - Bilateral primary osteoarthritis of knee, Z68.37 - Body mass index [BMI] 37.0-37.9, adult, Z72.0 - Tobacco use, Z99.89 - Dependence on other enabling machines and devices XR knee LT 2V Today M17.0 - Bilateral primary osteoarthritis of knee Lipid Panel Today E66.01 - Morbid (severe) obesity due to excess calories, F33.41 - Major depressive disorder, recurrent, in partial remission, G47.33 - Obstructive sleep apnea (adult) (pediatric), I10 - Essential (primary) hypertension, M17.0 - Bilateral primary osteoarthritis of knee, Z68.37 - Body mass index [BMI] 37.0-37.9, adult, Z72.0 - Tobacco use, Z99.89 - Dependence on other enabling machines and devices Referrals Orthopedics Referral M23.92 - Unspecified internal derangement of left knee Medications: Changed From Zepbound (tirzepatide (weight loss)) for 4 weeks 2.5 mg (0.5 mL) subcut QWEEK 90 days 6 mL 0RF NS To tirzepatide (weight loss) for 4 weeks 5 mg (0.5 mL) subcut QWEEK 6.5 mL 0RF 90 days Refilled amlodipine 10 mg PO DAILY 90 tabs 0RF clonazepam 0.5 mg PO BEDTIME 90 tabs 0RF 90 days omeprazole Take 1 capsule on empty stomach at night 20 mg PO DAILY 90 caps 0RF Heartburn sertraline 100 mg PO DAILY 90 tabs 0RF 90 days F41.1 - Generalized anxiety disorder losartan 50 mg PO BID 180 tabs 0RF 90 days
[2025-01-22 08:09] VITALS: BP 128/74; PULSE 70; O2SAT 94; BMI 32.4
== END 2025-01-22 08:25 | disposition home or self-care (01) ==
LOC: HO.HMCC 07:54
PROVIDERS: Visit Provider Internal Medicine
DX: I10 Essential (primary) hypertension (principal); J98.4 Other disorders of lung; E66.01 Morbid (severe) obesity due to excess calories; Z68.37 Body mass index [BMI] 37.0-37.9, adult; M23.92 Unspecified internal derangement of left knee; F33.41 Major depressive disorder, recurrent, in partial remission; G47.61 Periodic limb movement disorder; G47.33 Obstructive sleep apnea (adult) (pediatric); Z99.89 Dependence on other enabling machines and devices; Z72.0 Tobacco use

== ENCOUNTER → 2025-01-22 07:54 | Outpatient (BNVA) | payer OTHER, SELFPAY | PROVIDERS: Visit Provider Internal Medicine | DX: I10 Essential (primary) hypertension (principal); K21.9 Gastro-esophageal reflux disease without esophagitis; E66.9 Obesity, unspecified; R73.03 Prediabetes; M17.12 Unilateral primary osteoarthritis, left knee; J98.4 Other disorders of lung; M23.92 Unspecified internal derangement of left knee; F33.41 Major depressive disorder, recurrent, in partial remission; G47.61 Periodic limb movement disorder; G47.33 Obstructive sleep apnea (adult) (pediatric); E66.01 Morbid (severe) obesity due to excess calories; F41.1 Generalized anxiety disorder; F17.210 Nicotine dependence, cigarettes, uncomplicated; Z68.37 Body mass index [BMI] 37.0-37.9, adult; Z99.89 Dependence on other enabling machines and devices | CPT/HCPCS: 99212 ==

== ENCOUNTER 2025-01-23 08:57 | Outpatient (REF) | payer OTHER, SELFPAY ==
--- NOTE | ~2025-01-23 | XR_ITS ---
EXAMINATION: XR KNEE, LEFT CLINICAL INFORMATION: M17.0 - Bilateral primary osteoarthritis of knee COMPARISON: X-ray 12/02/2018 TECHNIQUE: Two views of the left knee. FINDINGS: Moderate medial compartment, mild lateral and patellofemoral compartment arthritis. Mild generous. No acute fracture dislocation. No effusion. XR/XR knee LT 2V IMPRESSION: Tricompartment osteoarthritis. Interval progression from previous. Electronically signed by: Jt Moore MD 01/25/2025 07:14 AM [facility]
--- OUTSIDE RECORDS SUMMARY | 2025-01-23 09:02 | XMS_ITS | Clinical Summary ---
Author Organization [employer] Address [address] [facility] 7[address] [place] [address] Care Team Providers Care Mold Tooler Name Role Phone Unavailable Primary Care Provider [...] Sodium Fluoride 1.1 % creamIndications:De ntin hypersensitivity [place] teeth for 2 minutes, morning and night. [...]
--- OUTSIDE RECORDS SUMMARY | 2025-01-23 09:02 | XMS_ITS | Patient Health Record ---
Author Organization [facility] Address [address] [place] [address] Care Team Providers Care Scalp Treatment Specialist Name Role Phone Barry [facility]SE[facility] Primary Care Provider Reji Malone [phone] Reason For Referral No Information Medications Medication [...] Problem Screening for malignant neoplasm of colon (085547191) Encounter for screening for malignant neoplasm of colon (Z12.11) Active confirmed Problem Preprocedural examination (830858113564730) Preprocedural examination (Z01.818) Active confirmed Plan Of Treatment Pending Test Test Name Order Date GI BIOPSY 07/17/2017 Future Test Test Name Order Date COLONOSCOPY 04/04/2017 Insurance Providers Payer Name Payer Address Payer Phone Subscriber Number Group Number Insured Name Patient Relationship to Insured Coverage Start Date Coverage End Date [facility] [address] [address] [place], [place] [id number] ARA MATTHEWS Self - patient is the insured MEDICAID OF [facility] [address] [place] [address] [id number] ARA MATTHEWS Self - patient is the insured Medical (General) History Medical History History ICD Code Hypertension Denies [place],DM,CVA,Lung disease,renal dise ase Arthritis in knees Anxiety Sleep apnea--uses CPAP Surgical History Surgery Date(Month/Year) 1988,1990 ASTRID
--- OUTSIDE RECORDS SUMMARY | 2025-01-23 09:02 | XMS_ITS | Encounter Summary ---
Author Organization [employer] [facility] Address [address] [place] [address] 7 [place] [address] Care Team Providers Care Fixed Income Trading Vice President Name Role Phone Unavailable Primary Care Provider Unavailabl e Encounter Details Date Type Department Care Team (Latest Contact Info) Description 11/14/2020 Abstract [facility] CONVERSIONS Dental, Provider, DDS Social [...]
--- OUTSIDE RECORDS SUMMARY | 2025-01-23 09:02 | XMS_ITS | Encounter Summary ---
Author Organization [employer] [facility] Address [address] [place] [address] 7 [place] [address] Care Team Providers Care [employer] Buffer Name Role Phone Unavailable Primary Care Provider Unavailabl e Encounter Details Date Type Department Care Team (Latest Contact Info) Description 08/20/2018 Abstract [facility] CONVERSIONS Dental, Provider, DDS Social History Tobacco [...]
--- OUTSIDE RECORDS SUMMARY | 2025-01-23 09:02 | XMS_ITS | Patient Health Record ---
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 Name Role Phone [facility] Primary [facility] Provider Latisha Dao Unavailable [phone] Reason For Referral No Information Medications Medication SIG (Take, Route, Fr equency, Duration) Notes Start Date End Date Status Calcium Active ibuprofen Active Losartan Potassium A ctive Sertraline HCl Activ e Problems No Known Problems Plan Of Treatment Pending Test Test Name Order Date [id number] Destruction, -02/03/2015 [id number] Destruction, -01/13/2015 Insurance Providers Payer Name Payer Address Payer Phone Subscriber Number Group Number Insured Name Patient Relationship to Insured Coverage Start Date Coverage End Date [facility] [address] [facility] [id number] Spouse - patient is the spouse of the insured Medical (General) History Medical History History ICD Code Anxiety Back,Hip,and Knee pain Chicken pox Measles Hypertension Surgical History Surgery Date(Month/Year) section x2 ovarian surgery
--- OUTSIDE RECORDS SUMMARY | 2025-01-23 09:02 | XMS_ITS | Encounter Summary ---
Author Organization [facility] Address [address] [place] [address] [address] [place] [address] Care Team Providers Care Fisher Net Name Role Phone Unavailable Primary Care Provider Unavailabl e Encounter Details Date Type Department Care Team (Latest Contact Info) Description 10/12/2021 Abstract [facility] CONVERSIONS Dental, Provider, DDS Social History Tobacco [...]
[2025-01-23 11:05] LABS: MANUAL DIFF FLAG NO
[2025-01-23 11:10] LABS: Hematocrit 39.2 % (37.0-47.0); Hemoglobin 12.8 g/dl (12.0-16.0); Imm Gran Abs Auto 0.03 X10*3/uL (0.00-0.03); Imm Gran Pct Auto 0.3 % (0.0-0.4); Lymphocytes Absolute Auto 2.6 X10*3/uL (1.2-4.9); Mean Corpuscular HGB Conc 32.7 g/dl (31.0-35.0); Mean Corpuscular Hemoglobin 29.8 pg (27.0-33.0); Mean Corpuscular Volume 91.2 fL (80.0-98.0); NRBC Abs Auto 0.000 X10*3/uL (0.0-0.012); NRBC Pct Auto 0.0 /100WBC (0.0-0.2); Platelet Count 253 X10*3/uL (160-400); Red Blood Count 4.30 X10*6/uL (4.20-5.50); White Blood Count 9.6 X10*3/uL (4.8-10.8)
[2025-01-23 11:24] LABS: Hemoglobin A1C 82.6279 umol/L
[2025-01-23 11:39] LABS: Microalbum/Creatinine Ratio Ur 11.6 ug/mg cr (<30)
[2025-01-23 11:41] LABS: Alanine Aminotransferase 20 U/L (0-31); Albumin Level 4.3 g/dL (3.5-5.0); Alkaline Phosphatase 117 U/L (39-117); Anion Gap 13 (12-20); Aspartate Amino Transferase 25 U/L (5-31); Blood Urea Nitrogen 16 mg/dL (9-16); Calcium 9.6 mg/dL (8.4-10.2); Carbon Dioxide 25 mmol/L (22-29); Chloride 107 mmol/L (96-108); Cholesterol 208 mg/dL (<200); Estimated Glomerular Filt Rate > 60; HDL Cholesterol 43 mg/dL (>40); Potassium 4.2 mmol/L (3.3-5.1); Sodium 141 mmol/L (135-145); Total Protein 7.3 g/dL (6.5-8.0); Triglycerides 104 mg/dL (<150)
== END 2025-01-23 08:58 | disposition home or self-care (01) ==
LOC: HO.HMGCLDS 08:57
PROVIDERS: PCP Internal Medicine; Visit Provider Internal Medicine
DX: M17.0 Bilateral primary osteoarthritis of knee (principal); I10 Essential (primary) hypertension; F33.41 Major depressive disorder, recurrent, in partial remission; G47.33 Obstructive sleep apnea (adult) (pediatric); E66.01 Morbid (severe) obesity due to excess calories; Z68.37 Body mass index [BMI] 37.0-37.9, adult; Z99.89 Dependence on other enabling machines and devices; Z72.0 Tobacco use
CPT/HCPCS: 36415; 73560; 80053; 80061; 82043; 82570; 83036; 85025

== ENCOUNTER → 2025-01-23 09:06 | Outpatient (BNV) | payer OTHER, SELFPAY | PROVIDERS: PCP Internal Medicine; Visit Provider Radiology Diagnostic Ultrasound | DX: M17.0 Bilateral primary osteoarthritis of knee (principal) | CPT/HCPCS: 73560 ==